=== PATIENT | male | born 1960 | race Caucasian/White ===

== ENCOUNTER 2017-04-13 20:12 | Inpatient (IN) | payer BC ==
[~2017-04-13] VITALS: Ht 172.7 cm; Wt 94.6 kg
[~2017-04-13 20:12] MED LIST: ALEN70TA30 PO; ASPI-664 PO; FINA5TAB4 PO; HYDR-3498 PO; LEVO175T38 PO; SIMV40TA3 PO; TAMS-14 PO; TERA10CA42 PO; [UNRECOGNIZED DRUG - CODE] PO
[2017-04-13] MEDS ORDERED: ONDANSETRON 4 MG INJ IV STA (21:09)
[2017-04-13] MEDS ORDERED: morphine 2 MG INJ IV STA (21:09)
[2017-04-13] MEDS ORDERED: SOD CHLORIDE 0.9% 1,000 ML IV STA (21:09)
[2017-04-13] MEDS ORDERED: ACETAMINOPHEN 325 MG TAB PO ONE (21:30)
--- NOTE | 2017-04-13 21:39 | ERD ---
ER Documentation Chief Complaint Date/Time DATE: 04/13/17 TIME: 21:35 Chief Complaint fever/rectal pain x 5 days HPI 56-year-old male presents here in emergency department for complaints of fever and rectal pain for 5 days. Patient has history of hemorrhoids in the rectum, it is causing him some discomfort. Patient denies any rectal bleeding. Complaining of pain, throbbing pain, 6/10 scale, as was upon defecation. Denies any other symptoms. Patient did not take any medications to help with symptoms ROS All systems reviewed and are negative except as per history of present illness. Medications Home Meds Active Scripts Tamsulosin Hcl* (Flomax*) 0.4 Mg Cap.er.24h, 0.4 MG PO BID, #10 CAP Prov:PALMIRA SAMUEL MD 01/10/15 Hydrocodone Bit-Acetaminophen* ([place]*) 5-325 Mg Tab, 1 TAB PO Q6 Y for PAIN, # 7 TAB Prov:PALMIRA SAMUEL MD 01/10/15 Reported Medications Alendronate Sodium* (Fosamax*) 70 Mg Tablet, 70 MG PO Q7D, TAB 01/10/15 Calcium Carbonate* (Calcium Antacid*) 500 Mg Tab.chew, 500 MG PO DAILY, TAB.CHEW 01/10/15 Finasteride* (Finasteride*) 5 Mg Tablet, 5 MG PO DAILY, TAB 01/10/15 Terazosin Hcl* (Terazosin Hcl*) 10 Mg Capsule, 10 MG PO HS, CAP 01/10/15 Levothyroxine Sodium* (Levoxyl*) 175 Mcg Tablet, 175 MCG PO AC BREAKFAST, TAB 01/10/15 Aspirin (Low Dose Aspirin) 81 Mg Tablet.dr, 81 MG PO DAILY 01/10/15 Simvastatin (Simvastatin) 40 Mg Tablet, 40 MG PO HS 02/09/13 Allergies Allergies: Coded Allergies: No Known Allergy (Unverified , 01/10/15) PMhx/Soc History of Surgery: Yes (THYROID SURGERY ) Anesthesia Reaction: No Hx Neurological Disorder: No Hx Respiratory Disorders: No Hx Cardiac Disorders: Yes (HTN) Hx Psychiatric Problems: No Hx Miscellaneous Medical Probl: Yes (HIGH CHOLESTEROL , THROID PROBLEM ) Hx Alcohol Use: Yes (OCCASIONALLY) Hx Substance Use: No Hx Tobacco Use: No Smoking Status: Never smoker FmHx Family History: No coronary disease, No diabetes, No other Physical Exam Vitals Vital Signs Date Time Temp Pulse Resp B/P Pulse Ox O2 Delivery O2 Flow Rate FiO2 04/13/17 20:17 101.3 122 20 136/75 94 Physical Exam GENERAL: The patient is well developed and appropriate for usual state of health, in no apparent distress. CHEST: Clear to auscultation bilaterally. There are no rales, wheezes or rhonchi. HEART: Regular rate and rhythm. No murmurs, clicks, rubs or gallops. No S3 or S4. ABDOMEN: Soft, nontender and nondistended. Good bowel sounds. No rebound or guarding. No gross peritonitis. No gross organomegaly or masses. No Martinez sign or McBurney point tenderness. BACK: No midline or flank tenderness. EXTREMITIES: Equal pulses bilaterally. There is no peripheral clubbing, cyanosis or edema. No focal swelling or erythema. Full range of motion. Grossly neurovascularly intact. NEURO: Alert and oriented. Cranial nerves 2-12 intact. Motor strength in all 4 extremities with 5/5 strength. Sensation grossly intact. Normal speech and gait. SKIN: There is no apparent rash or petechia. The skin is warm and dry. HEMATOLOGIC AND LYMPHATIC: There is no evidence of excessive bruising or lymphedema. No gross cervical, axillary, or inguinal lymphadenopathy. Result Diagram: 04/13/17212904/13/172129 Results 24 hrs Laboratory Tests Test 04/13/17 21:30 White Blood Count 13.110^3/ul Red Blood Count 4.3310^6/ul Hemoglobin 12.3g/dl Hematocrit 37.2% Mean Corpuscular Volume 85.9fl Mean Corpuscular Hemoglobin 28.4pg Mean Corpuscular Hemoglobin Concent 33.1g/dl Red Cell Distribution Width 12.1% Platelet Count 99291^3/UL Mean Platelet Volume 9.6fl Neutrophils % 73.3% Lymphocytes % 13.5% Monocytes % 11.6% Eosinophils % 0.6% Basophils % 0.4% Nucleated Red Blood Cells % 0.0/100WBC Neutrophils # 9.610^3/ul Lymphocytes # 1.810^3/ul Monocytes # 1.510^3/ul Eosinophils # 0.110^3/ul Basophils # 0.110^3/ul Nucleated Red Blood Cells # 0.010^3/ul Sodium Level 137mmol/L Potassium Level 4.3mmol/L Chloride Level 101mmol/L Carbon Dioxide Level 29mmol/L Anion Gap 11 Blood Urea Nitrogen 16mg/dl Creatinine 0.88mg/dl Glucose Level 113mg/dl Lactic Acid Level 1.3mmol/L Calcium Level 9.2mg/dl Total Bilirubin 0.4mg/dl Direct Bilirubin 0.00mg/dl Indirect Bilirubin 0.4mg/dl Aspartate Amino Transf (AST/SGOT) 26IU/L Alanine Aminotransferase (ALT/SGPT) 43IU/L Alkaline Phosphatase 73IU/L Total Protein 8.1g/dl Albumin 3.9g/dl Globulin 4.20g/dl Albumin/Globulin Ratio 0.92 Current Medications Medications (Trade) Dose Ordered Sig/Joey Route PRN Reason Start Time Stop Time Status Last Admin Dose Admin Sodium Chloride (NS) 1,000 ml @ 1,000 mls/hr Q1H STAT IV 04/13/17 21:09 04/13/17 22:08 DC 04/13/17 21:28 Morphine Sulfate (morphine) 2 mg ONCE STAT IV 04/13/17 21:09 04/13/17 21:11 DC 04/13/17 21:29 Ondansetron HCl (Zofran Inj) 4 mg ONCE STAT IV 04/13/17 21:09 04/13/17 21:11 DC 04/13/17 21:28 Acetaminophen (Tylenol Tab) 650 mg ONCE ONCE PO 04/13/17 21:30 04/13/17 21:31 DC 04/13/17 21:29 IV Flush 10 ml 10 ml STK-MED ONCE .ROUTE 04/13/17 22:13 04/13/17 22:14 DC 04/13/17 22:22 Sodium Chloride (NS) 100 ml @ ud STK-MED ONCE .ROUTE 04/13/17 22:13 04/13/17 22:14 DC 04/13/17 22:22 Iohexol (Omnipaque 300mg/ ml) 30 ml STK-MED ONCE .ROUTE 04/13/17 22:13 04/13/17 22:14 DC 04/13/17 22:23 Patient was given medication for pain here in emergency department, after treatment, patient verbalized feeling much better. Patient's pain is improved. Patient was given Zofran here in the emergency department. After treatment, patient was able to tolerate po fluids here in the emergency department without any vomiting. There is no signs and symptoms of dehydration. Patient was given medicines for fever control here in the emergency department. After treatment, patient temperature improved and lower. Patient appears well and is hemodynamically stable. Normal saline IV bolus was given here in emergency department for rehydration, patient tolerated IV fluids. PROCEDURE: CT scan of the abdomen and pelvis without IV contrast. CLINICAL INDICATION: Rectal pain and swelling. Rule out abscess. TECHNIQUE: Thin section axial, coronal and sagittal images were performed through the abdomen and pelvis without intravenous contrast. Images were performed on a [id number] III scanner. Radiation Dose: CTDI: 13.04 and DLP: 800.55 One or more of the following dose reduction techniques were used: - Automated exposure control. - Adjustment of the mA and/or kV according to patient size. Use of iterative reconstruction technique. COMPARISON: CT scan abdomen pelvis 01/10/2015. FINDINGS: Soft tissues: There is a midline umbilical hernia. There are bilateral inguinal hernias containing only fat. There is a soft tissue abscess dorsal to the rectal ampulla and near the level of the anus. This measures about 3.9 cm in long axis in the sagittal plane by 2.2 x 2 cm in the axial plane. Lungs and pleural spaces: There are peripheral ground-glass infiltrates in the bases of the lungs. There is a pleural-based soft nodule measuring 1.1 cm in size in the medial aspect of the right lower lobe. This is not identified on the prior CT abdomen dated January 10, 2015. This could be the result of a inflammatory or neoplastic process. A follow-up CT chest is recommended in 3 months to confirm stability. A PET CT scan or CT guided lung biopsy can be considered for further evaluation if there is a high index of suspicion for malignancy. Series 3; image 2. there is plate-like atelectasis in the lingula. No pleural effusion is identified. Heart: Heart is upper limits of normal for size. No pericardial effusion is identified. The liver, common bile duct and gallbladder: The liver measured 17.8 cm AP which is enlarged. No hepatic mass or intrahepatic biliary ductal dilatation is identified. The gallbladder and gallbladder wall are normal. The hepatic and portal veins are patent. Gastrointestinal: The stomach is incompletely distended and this is thought to account for gastric wall thickening. There is fecal material throughout the colon. There is no evidence of diverticulosis or diverticulitis. The vermiform appendix is normal. A fluid collection measuring 2.2 x 2 cm in size is identified dorsal to the anus suspicious for an abscess. The small bowel loops have a normal caliber. There is a umbilical hernia measuring up to 4.7 cm sagittal by 2.1 cm AP. The neck of the hernia measures up to 2 cm in transverse diameter. There is rectus diastasis. Pancreas: There is some fatty replacement of the pancreas but no pancreatic mass. The extrahepatic common bile duct is normal. Kidneys, bladder and adrenal glands : The adrenal glands are normal. The kidneys are unremarkable. There is no evidence of nephrolithiasis. The urinary bladder is normal. Spleen: Normal. Lymph nodes: No enlarged inguinal, pelvic sidewall, retroperitoneal, mesenteric or periportal lymph nodes are identified. Reproductive system and pelvis : Normal. Bony elements: There are degenerative osteophytes in the thoracic and lumbar spine. No acute bony fracture or bone metastasis is identified. There is disc space narrowing with ventral spondylosis at L3-4, L4-5 and mild dorsal disc space narrowing at L5-S1. There is no evidence of spondylolysis or spondylolisthesis. Vasculature: There are vascular calcifications in the mid and lower abdominal aorta, common iliac arteries, left internal iliac artery and distal femoral arteries. There are bilateral inguinal hernias containing only fat. IMPRESSION: 1. A 1.1 cm pleural based soft nodule is identified in the medial aspect of the right lower lobe. This could be the result of an Laboratory process such as TB or coccidiomycosis. A neoplastic etiology is not excluded. TB skin testing is recommended along with a follow-up CT scan in [address] scan or percutaneous lung biopsy can be considered for evaluation if there is a high index of suspicion for malignancy. 2. Peripheral ground-glass infiltrates peribronchial cuffing in the bases of the lungs suspicious for small airway disease and /or atelectasis. Plate-like atelectasis in the lingula. 3. 2.2 x 2 cm by 3.9 cm fluid collection which may be the result of an abscess dorsal to the distal rectal ampulla adjacent to the anus. 4. Hepatomegaly. 5. Midline umbilical hernia measuring up to 3.1 cm transverse by 4.7 cm sagittal by 2.1 cm AP containing only fat. 6. Bilateral inguinal hernias are identified which contain only fat. 7. Atherosclerotic vascular disease. 8. Osteoarthritis of the thoracic and lumbosacral spine. 9. Findings were phoned to KIRA Stevens at 10:46 p.m.. RPTAT:AAJJ Physician Jairon Date Time Electronically viewed and signed by Arturo Murphy Physician on 04/13/2017 22:50 JM/ CC: SON HURD NP Procedures/MDM Medical decision making: Patient has perirectal abscesses most likely causing the fever and the pain. Most likely needs general surgeon for possible surgical intervention for draining of the abscess. Patient will be admitted to the hospital, Dr. Gamino, my attending physician, will facilitate patient's admission to the hospital. Disposition Departure Diagnosis: Primary Impression: Rectal abscess Condition: Stable SON HURD NP Apr 13, 2017 21:39
[2017-04-13 21:46] LABS: ABNORMAL IP MESSAGE 1; BASOPHIL # 0.1 10^3/ul (0.0-0.1); BASOPHILS % 0.4 % (0.0-2.0); EOSINOPHILS # 0.1 10^3/ul (0.0-0.5); EOSINOPHILS % 0.6 % (0.0-7.0); HEMATOCRIT 37.2 % (42.0-52.0); HEMOGLOBIN 12.3 g/dl (14.0-18.0); LYMPHOCYTES # 1.8 10^3/ul (0.8-2.9); LYMPHOCYTES % 13.5 % (15.0-51.0); MEAN CORPUSCULAR HEMOGLOBIN 28.4 pg (29.0-33.0); MEAN CORPUSCULAR HGB CONC 33.1 g/dl (32.0-37.0); MEAN CORPUSCULAR VOLUME 85.9 fl (82.0-101.0); MEAN PLATELET VOLUME 9.6 fl (7.4-10.4); MONOCYTE # 1.5 10^3/ul (0.3-0.9); MONOCYTES % 11.6 % (0.0-11.0); NEUTROPHIL # 9.6 10^3/ul (1.6-7.5); NEUTROPHILS % 73.3 % (39.0-77.0); PLATELET COUNT 319 10^3/UL (140-415); POSITIVE DIFF @See below; RED BLOOD COUNT 4.33 10^6/ul (4.70-6.10); RED CELL DISTRIBUTION WIDTH 12.1 % (11.5-14.5); WHITE BLOOD COUNT 13.1 10^3/ul (4.8-10.8)
[2017-04-13 22:06] LABS: ALBUMIN 3.9 g/dl (3.3-4.9); ALBUMIN/GLOBULIN RATIO 0.92; BILIRUBIN,INDIRECT 0.4 mg/dl (0-1.1); BILIRUBIN,TOTAL 0.4 mg/dl (0.2-1.3); CALCIUM 9.2 mg/dl (8.4-10.2); CREATININE 0.88 mg/dl (0.61-1.24); POTASSIUM 4.3 mmol/L (3.5-5.1); TOTAL PROTEIN 8.1 g/dl (6.1-8.1)
[2017-04-13] MEDS ORDERED: IOHEXOL 300MG/ML 30 ML BTL ONE (22:13)
[2017-04-13] MEDS ORDERED: SOD CHLORIDE 0.9% 100 ML ONE (22:13)
--- NOTE | 2017-04-13 22:51 | RADRPT ---
PROCEDURE: CT scan of the abdomen and pelvis without IV contrast. CLINICAL INDICATION: Rectal pain and swelling. Rule out abscess. TECHNIQUE: Thin section axial, coronal and sagittal images were performed through the abdomen and pelvis without intravenous contrast. Images were performed on a [employer] scan ner. Radiation Dose: CTDI: 13.04 and DLP: 800.55 One or more of the following dose reduction techniques were used: - Automated exposure control. - Adjustment of the mA and/or kV according to patient size. Use of iterative reconstruction technique. COMPARISON: CT scan abdomen pelvis 01/10/2015. FINDINGS: Soft tissues: There is a midline umbilical hernia. There are bilateral inguinal hernias containing o nly fat. There is a soft tissue abscess dorsal to the rectal ampulla and near the level of the anus. This measures about 3.9 cm in long axis in the sagittal plane by 2.2 x 2 cm in the axial plane. Lungs and pleural spaces: There are peripheral ground-glass infiltrates in the bases of the lungs. T here is a pleural-based soft nodule measuring 1.1 cm in size in the medial aspect of the right lower lobe. This is not identified on the prior CT abdomen dated January 10, 2015. This could be the result of a inflammatory or neoplastic process. A follow-up CT chest is recommended in 3 months to confirm stability. A PET CT scan or CT guided lung biopsy can be considered for further evaluation if there is a high index of suspicion for malignancy. Series 3; image 2. there is plate-like atelectasis in t he lingula. No pleural effusion is identified. Heart: Heart is upper limits of normal for size. No pericardial effusion is identified. The liver, common bile duct and gallbladder: The liver measured 17.8 cm AP which is enlarged. No hep atic mass or intrahepatic biliary ductal dilatation is identified. The gallbladder and gallbladder w all are normal. The hepatic and portal veins are patent. Gastrointestinal: The stomach is incompletely distended and this is thought to account for gastric w all thickening. There is fecal material throughout the colon. There is no evidence of diverticulosis or diverticulitis. The vermiform appendix is normal. A fluid collection measuring 2.2 x 2 cm in siz e is identified dorsal to the anus suspicious for an abscess. The small bowel loops have a normal ca liber. There is a umbilical hernia measuring up to 4.7 cm sagittal by 2.1 cm AP. The neck of the her deo measures up to 2 cm in transverse diameter. There is rectus diastasis. Pancreas: There is some fatty replacement of the pancreas but no pancreatic mass. The extrahepatic c ommon bile duct is normal. Kidneys, bladder and adrenal glands : The adrenal glands are normal. The kidneys are unremarkable. T here is no evidence of nephrolithiasis. The urinary bladder is normal. Spleen: Normal. Lymph nodes: No enlarged inguinal, pelvic sidewall, retroperitoneal, mesenteric or periportal lymph nodes are identified. Reproductive system and pelvis : Normal. Bony elements: There are degenerative osteophytes in the thoracic and lumbar spine. No acute bony fr acture or bone metastasis is identified. There is disc space narrowing with ventral spondylosis at L 3-4, L4-5 and mild dorsal disc space narrowing at L5-S1. There is no evidence of spondylolysis or sp ondylolisthesis. Vasculature: There are vascular calcifications in the mid and lower abdominal aorta, common iliac ar teries, left internal iliac artery and distal femoral arteries. There are bilateral inguinal hernias containing only fat. IMPRESSION: 1. A 1.1 cm pleural based soft nodule is identified in the medial aspect of the right lower lobe. T his could be the result of an Laboratory process such as TB or coccidiomycosis. A neoplastic etiolog y is not excluded. TB skin testing is recommended along with a follow-up CT scan in [address] scan or percutaneous lung biopsy can be considered for evaluation if there is a high index of david picion for malignancy. 2. Peripheral ground-glass infiltrates peribronchial cuffing in the bases of the lungs suspicious fo r small airway disease and /or atelectasis. Plate-like atelectasis in the lingula. 3. 2.2 x 2 cm by 3.9 cm fluid collection which may be the result of an abscess dorsal to the distal rectal ampulla adjacent to the anus. 4. Hepatomegaly. 5. Midline umbilical hernia measuring up to 3.1 cm transverse by 4.7 cm sagittal by 2.1 cm AP conta ining only fat. 6. Bilateral inguinal hernias are identified which contain only fat. 7. Atherosclerotic vascular disease. 8. Osteoarthritis of the thoracic and lumbosacral spine. 9. Findings were phoned to IKRA Stevens at 10:46 p.m.. RPTAT:AAJJ Arturo Murphy, Physician Date Time Electronically viewed and signed by Arturo Murphy, Physician on 04/13/2017 22:50 YANIV/
[2017-04-14] VITALS (12 sets, daily range): BP systolic 101–123; BP diastolic 58–67; PULSE 86–94; RESP 14–18; TEMP 98.9; Ht 172.7 cm; Wt 94.6 kg
[2017-04-14 00:37] LABS: ADD UMIC NO; UR ASCORBIC ACID NEGATIVE (NEGATIVE); UR BILIRUBIN (Dip) NEGATIVE (NEGATIVE); UR BLOOD (Dip) NEGATIVE (NEGATIVE); UR CLARITY CLEAR (CLEAR); UR COLOR YELLOW (YELLOW); UR GLUCOSE (Dip) NEGATIVE (NEGATIVE); UR KETONES (Dip) TRACE mg/dL (NEGATIVE); UR LEUKOCYTE ESTERASE (Dip) NEGATIVE Leu/ul (NEGATIVE); UR NITRITE (Dip) NEGATIVE (NEGATIVE); UR SPECIFIC GRAVITY (Dip) 1.055 (1.003-1.030); UR TOTAL PROTEIN (Dip) NEGATIVE (NEGATIVE); UR UROBILINOGEN (Dip) NEGATIVE (NEGATIVE)
[2017-04-14] MEDS: DEXTROSE 5%-0.45% NACL 1,000 ML IV SCH (01:54)
[2017-04-14] MEDS: morphine 4 MG/ML VIAL IV PRN ×3 (01:55→20:45)
[2017-04-14] MEDS: PIPER-TAZO 3.375 GM IV (PMX) 100 ML IVPB SCH ×4 (02:00→17:30)
[2017-04-14] MEDS ORDERED: HYDROCODONE/APAP (5/325) TAB PO PRN (02:00)
[2017-04-14 06:22] LABS: ABNORMAL IP MESSAGE 1; BASOPHILS % 0.3 % (0.0-2.0); EOSINOPHILS # 0.1 10^3/ul (0.0-0.5); EOSINOPHILS % 0.6 % (0.0-7.0); HEMATOCRIT 33.7 % (42.0-52.0); HEMOGLOBIN 10.9 g/dl (14.0-18.0); LYMPHOCYTES # 1.8 10^3/ul (0.8-2.9); MEAN CORPUSCULAR HEMOGLOBIN 28.1 pg (29.0-33.0); MEAN CORPUSCULAR HGB CONC 32.3 g/dl (32.0-37.0); MEAN CORPUSCULAR VOLUME 86.9 fl (82.0-101.0); MEAN PLATELET VOLUME 9.5 fl (7.4-10.4); MONOCYTE # 1.8 10^3/ul (0.3-0.9); MONOCYTES % 12.6 % (0.0-11.0); NEUTROPHIL # 10.8 10^3/ul (1.6-7.5); PLATELET COUNT 278 10^3/UL (140-415); POSITIVE DIFF @See below; RED BLOOD COUNT 3.88 10^6/ul (4.70-6.10); RED CELL DISTRIBUTION WIDTH 12.3 % (11.5-14.5); WHITE BLOOD COUNT 14.6 10^3/ul (4.8-10.8)
[2017-04-14 06:54] LABS: ALBUMIN 3.7 g/dl (3.3-4.9); ALBUMIN/GLOBULIN RATIO 1.05; BILIRUBIN,INDIRECT 0.6 mg/dl (0-1.1); BILIRUBIN,TOTAL 0.6 mg/dl (0.2-1.3); CALCIUM 8.4 mg/dl (8.4-10.2); CREATININE 0.89 mg/dl (0.61-1.24); POTASSIUM 4.3 mmol/L (3.5-5.1); TOTAL PROTEIN 7.2 g/dl (6.1-8.1)
--- NOTE | 2017-04-14 13:53 | HP ---
DATE OF ADMISSION: 04/13/2017 CHIEF COMPLAINT: Rectal pain and fever for the last 5 days. HISTORY OF PRESENT ILLNESS: The patient is a 56-year-old gentleman with prior medical history of thyroid cancer, status post thyroidectomy in 2000, COPD, BPH, history of back surgery many years ago, history of hypertension, dyslipidemia. The patient had a colonoscopy a couple of years ago with notion of hemorrhoids. The patient developed rectal pain for the last 5 days and was not able to have a bowel movement due to pain. The patient also complains of fever and chills. The patient denies any rectal bleeding. Denies any hematochezia. On evaluation in the emergency room, patient underwent CT of the abdomen and pelvis, which revealed a fluid collection in the distal rectal ampulla adjacent to the anus. The patient was also noted to have leukocytosis and fever of 101.3. Patient had nausea; however, denies any emesis. Patient was given Zofran and morphine in the emergency room. Patient was started on Zosyn and admitted for further evaluation and management. Patient patient denies any shortness of breath. Denies any chest pain. PAST MEDICAL HISTORY: 1. Thyroid cancer, status post thyroidectomy 2000. 2. COPD. 3. BPH. 4. Hypertension. 5. Dyslipidemia. 6. Osteoporosis. PAST SURGICAL HISTORY: 1. Back surgery in 1984, details are not available. 2. Status post thyroidectomy in 2000. 3. Colonoscopy a couple of years ago. FAMILY HISTORY: Noncontributory. SOCIAL HISTORY: Patient lives at home with his family. The patient is a former smoker. However, stated that he quit smoking 17 years ago when he was diagnosed with thyroid cancer. The patient drinks alcohol occasionally. Denies any illicit drug use. ALLERGIES: NO KNOWN ALLERGIES. MEDICATIONS: Includes: 1. Flomax. 2. [place]. 3. Fosamax. 4. Calcium carbonate. 5. Finasteride. 6. Terazosin. 7. Levothyroxine. 8. Aspirin. 9. Simvastatin. REVIEW OF SYSTEMS: Twelve point review of system is negative unless what is mentioned in HPI. PHYSICAL EXAMINATION: GENERAL: A well-developed, well-nourished male, currently is awake, alert, in no acute distress. VITAL SIGNS: Temperature is 99.8, pulse is 91, blood pressure 101/58, respiratory rate 17, oxygen saturation 93 percent on room air. HEENT: Head is atraumatic, normocephalic. Pupils equal, round, reactive to light and accommodation. Oral mucosa is pink and moist. NECK: No cervical lymphadenopathy. No thyromegaly. CHEST: Lungs clear bilaterally. There is no rhonchi, wheezes or rales noted. CARDIOVASCULAR: Normal S1, S2. No murmurs, gallops, clicks, rubs noted. ABDOMEN: Protuberant, soft, nondistended, nontender. EXTREMITIES: No edema, clubbing, cyanosis. Pulses equal bilaterally 2+. SKIN: No rash. No petechiae noted. NEUROLOGICAL: Patient is awake, alert, and oriented x4. No focal deficits noted. Motor strength is 5/5 in all extremities. LABORATORY DATA: On admission, CBC white blood cells 13.1, hemoglobin 12.3, hematocrit 37.2, platelets 319. Chemistry: Sodium is 137, potassium 4.3, chloride 101, carbon dioxide 29, anion gap 11, BUN is 16, creatinine 0.88, glucose 113, AST is 26, ALT is 43, alkaline phosphatase 73. ASSESSMENT AND PLAN: 1. Rectal abscess. We will continue morphine for pain. Dr. Jimenez is asked to see patient in General Surgery consultation. Continue broad-spectrum antibiotics. 2. Systemic inflammatory response syndrome with fevers and leukocytosis secondary to rectal abscess. Continue intravenous fluids and antibiotics. Dr. Salmeron is asked to see patient in Infectious Disease consultation. 3. A 1 cm pleural-based soft tissue nodule in the right lower lung lobe. We are going to as DrAnibal to see patient in Pulmonology consultation. 4. Benign prostatic hypertrophy. 5. Hypertension. 6. Dyslipidemia. 7. We are going to continue sequential compression for deep venous thrombosis prophylaxis and Pepcid for peptic ulcer disease prophylaxis. Further recommendations based on clinical course. Plan of care discussed with Dr. Ponce. Dictated By: Rizwana Dawkins NP /ana/maame /Document#: [id number]
[2017-04-14] MEDS: ACETAMINOPHEN 325 MG TAB PO PRN (14:27)
[2017-04-14] MEDS ORDERED: VANCOMYCIN IV PER PHARMACY XX SCH (16:00)
[2017-04-14] MEDS ORDERED: VANCOMYCIN 2 GM in SOD CHLORIDE 0.9% 500 ML IVPB SCH (18:00)
--- NOTE | 2017-04-14 18:34 | CONS ---
Date/Time of Note Date/Time of Note DATE: 04/14/17 TIME: 18:28 Assessment/Plan Assessment/Plan Additional Assessment/Plan Perianal abscess Plan: Incision and drainage Consultation Date/Type/Reason Admit Date/Time Apr 13, 2017 at 23:28 Date of Consultation: Apr 14, 2017 Reason for Consultation Perirectal abscess Hx of Present Illness The patient is a 56-year-old gentleman who presents with a 5 day history of increasing perirectal pain. He was seen in the emergency room yesterday, where he was treated and released. He returns today worsening pain. CT is compatible with a perianal abscess. The patient reportedly has had fevers and chills. His comorbid conditions consist of COPD, BPH, hypertension and history of thyroidectomy for thyroid carcinoma. Constitutional: no complaints Eyes: no complaints ENT: no complaints Respiratory: no complaints Cardiovascular: no complaints Gastrointestinal: no complaints, pain (Perianal pain mostly on the right) Genitourinary: no complaints, other (History of BPH) Musculoskeletal: no complaints Skin: no complaints Neurologic: no complaints Endocrine: no complaints Lymphatic: no complaints Past Medical History Medical History: hypertension, other (COPD, BPH, hypertension, osteoporosis, dyslipidemia) Past Surgical History Thyroidectomy for thyroid carcinoma Back surgery 1985 Family History Significant Family History: no pertinent family hx Social History Alcohol Use: occasionally Smoking Status: Former smoker Drug Use: none Exam/Review of Systems Vital Signs Vitals Vital Signs Date Time Temp Pulse Resp B/P Pulse Ox O2 Delivery O2 Flow Rate FiO2 04/14/17 17:20 98.4 04/14/17 14:27 85 18 106/60 95 04/14/17 01:00 Room Air Intake and Output 04/13/17 04/13/17 04/14/17 15:00 23:00 07:00 Intake Total 575 ml Output Total 400 ml Balance 175 ml Exam Constitutional: alert, oriented Psych: nl mood/affect, no complaints Head: normocephalic Eyes: nl conjunctiva ENMT: nl external ears & nose Neck: supple Respiratory: clear to auscultation Cardiovascular: regular rate and rhythm Gastrointestinal: other (Perianal tenderness right anal verge, with underlying fluctuance), soft Genitourinary - Male: nl penis, nl scrotum Musculoskeletal: nl extremities to inspection Extremities: normal pulses Neurological: 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 intact Skin: nl turgor Lymph: nl lymph nodes Results Result Diagram: 04/14/17 0555 04/14/17 0555 Results 24 hrs Laboratory Tests Test 04/13/17 21:30 04/13/17 23:05 04/14/17 05:55 White Blood Count 13.1 H 14.6 H Red Blood Count 4.33 L 3.88 L Hemoglobin 12.3 L 10.9 L Hematocrit 37.2 L 33.7 L Mean Corpuscular Volume 85.9 86.9 Mean Corpuscular Hemoglobin 28.4 L 28.1 L Mean Corpuscular Hemoglobin Concent 33.1 32.3 Red Cell Distribution Width 12.1 12.3 Platelet Count 319 278 Mean Platelet Volume 9.6 9.5 Neutrophils % 73.3 74.0 Lymphocytes % 13.5 L 12.0 L Monocytes % 11.6 H 12.6 H Eosinophils % 0.6 0.6 Basophils % 0.4 0.3 Nucleated Red Blood Cells % 0.0 0.0 Neutrophils # 9.6 H 10.8 H Lymphocytes # 1.8 1.8 Monocytes # 1.5 H 1.8 H Eosinophils # 0.1 0.1 Basophils # 0.1 0.0 Nucleated Red Blood Cells # 0.0 0.0 Sodium Level 137 138 Potassium Level 4.3 4.3 Chloride Level 101 103 Carbon Dioxide Level 29 28 Anion Gap 11 11 Blood Urea Nitrogen 16 12 Creatinine 0.88 0.89 Glucose Level 113 112 Lactic Acid Level 1.3 Calcium Level 9.2 8.4 Total Bilirubin 0.4 0.6 Direct Bilirubin 0.00 0.00 Indirect Bilirubin 0.4 0.6 Aspartate Amino Transf (AST/SGOT) 26 24 Alanine Aminotransferase (ALT/SGPT) 43 39 Alkaline Phosphatase 73 61 Total Protein 8.1 7.2 Albumin 3.9 3.7 Globulin 4.20 H 3.50 H Albumin/Globulin Ratio 0.92 1.05 Urine Color YELLOW Urine Clarity CLEAR Urine pH 5.0 Urine Specific [place] 1.055 H Urine Ketones TRACE A Urine Nitrite NEGATIVE Urine Bilirubin NEGATIVE Urine Urobilinogen NEGATIVE Urine Leukocyte Esterase NEGATIVE Urine Hemoglobin NEGATIVE Urine Glucose NEGATIVE Urine Total Protein NEGATIVE Medications Medications Current Medications Piperacillin Sod/ Tazobactam Sod (Zosyn 3.375gm/ 100 ml (Pmx)) 100 ml @ 200 mls /hr Q6 IVPB Last administered on 04/14/17 12:03; Admin Dose 200 MLS/HR; Start 04/14/17 at 02:00 Acetaminophen (Tylenol Tab) 650 mg Q6H PRN PO PAIN AND OR ELEVATED TEMP Last administered on 04/14/17 14:27; Admin Dose 650 MG; Start 04/14/17 at 02:00 Acetaminophen/ Hydrocodone Bitart ([place] (5/325)) 1 tab Q4H PRN PO PAIN; Start 04/14/17 at 02:00 Morphine Sulfate 4 mg 4 mg Q4H PRN IV PAIN Last administered on 04/14/17 06:03 ; Admin Dose 4 MG; Start 04/14/17 at 02:00 Dextrose/Sodium Chloride (D5-1/2ns) 1,000 ml @ 75 mls/hr [id number] IV Last administered on 04/14/17 01:54; Admin Dose 75 MLS/HR; Start 04/14/17 at 02:00 Aspirin (Halfprin) 81 mg DAILY PO ; Start 04/15/17 at 09:00 Finasteride (Proscar) 5 mg DAILY PO ; Start 04/15/17 at 09:00 Tamsulosin HCl (Flomax) 0.4 mg BID PO ; Start 04/14/17 at 21:00 Atorvastatin Calcium 20 mg 20 mg HS PO ; Start 04/14/17 at 21:00 Vancomycin HCl 2 gm/Sodium Chloride 500 ml @ 125 mls/hr ONCE IVPB Last administered on 04/14/17 17:53; Admin Dose 125 MLS/HR; Start 04/14/17 at 18:00 ; Stop 04/15/17 at 01:00 Vancomycin HCl/ Sodium Chloride (Vancocin/NS) 250 ml @ 83.333 mls/ hr Q12H IVPB ; Start 04/15/17 at 08:00 MAXX WINSLOW MD Apr 14, 2017 18:34
[2017-04-14] MEDS ORDERED: FENTAnyl 50 MCG/ML VIAL ONE (19:50)
[2017-04-14] MEDS ORDERED: MIDAZOLAM 1 MG/ML 2 ML INJ ONE (19:50)
[2017-04-14] MEDS ORDERED: BUPIVACAINE 0.5% (SDV) 30 ML INJ ONE (20:11)
[2017-04-14] MEDS ORDERED: LIDOCAINE 2%/EPI 30 ML INJ ONE (20:14)
[2017-04-14] MEDS ORDERED: LIDOCAINE 2% (SDV) 5 ML INJ ONE (20:20)
[2017-04-14] MEDS ORDERED: ETOMIDATE 20 MG INJ ONE (20:20)
[2017-04-14] MEDS ORDERED: ONDANSETRON 4 MG INJ ONE (20:21)
[2017-04-14] MEDS ORDERED: OXYCODONE/ACETAMINOPHEN (5/325) TAB PO PRN ×2 (20:30)
[2017-04-14] MEDS ORDERED: morphine 2 MG INJ IV PRN (20:30)
--- NOTE | 2017-04-14 20:35 | OPR ---
Date/Time of Note Date/Time of Note DATE: 04/14/17 TIME: 20:30 Operative Report Procedure Date: Apr 14, 2017 Preoperative Diagnosis Perianal abscess Postoperative Diagnosis Perianal phlegmon Operation Performed Examination under anesthesia Incision and drainage Surgeon Maxx Winslow MD Anesthesia Type: general Anesthesiologist: PRISCILLA ADLER MD Estimated Blood Loss: 0 - 10 ml's Transfusion Required: no Specimens Culture and sensitivity Complications: no Pt Condition Post Procedure: stable Disposition: PACU Indications Perianal pain Operative\Procedure Findings Perianal phlegmon 7:00 lithotomy Procedure Description After satisfactory general anesthesia was achieved, the patient was placed in candycane stirrups and the perineum was prepped and draped. Examination under anesthesia revealed perianal fluctuance and edema at 7:00 in lithotomy position. No other abnormalities except for external hemorrhoids. A 2-1/2 cm radial incision was made at 7:00. There was no za abscess, but rather a 3 cm x 3 cm phlegmon. This was cultured aerobically and anaerobically, then packed with 1 inch iodoform gauze. Wound was infiltrated with 20 cc of 0.5% plain Marcaine and 10 cc of 2% lidocaine with epinephrine. Sponge and needle counts reported as correct 2 MAXX WINSLOW MD Apr 14, 2017 20:35
[2017-04-14] MEDS ORDERED: NON-FORMULARY/PATIENT OWN MED (Simvastatin 40 MG) PO SCH (21:00)
[2017-04-14] MEDS: ATORVASTATIN 20 MG TAB PO SCH (21:28)
[2017-04-14] MEDS: TAMSULOSIN (SR) 0.4 MG CAP PO SCH (21:28)
--- NOTE | 2017-04-14 22:12 | CONS ---
Date/Time of Note Date/Time of Note DATE: 04/14/17 TIME: 22:11 Assessment/Plan Assessment/Plan Chief Complaint/Hosp Course LEUKOCYTOSIS REACTIVE MONITOR CLOSELY Lung nodule- chronic per pulmonary 1.1 cm pleural based soft nodule is identified in the medial aspect of the right lower lobe. RESCAN IN 3 MO Thyroid cancer, status post thyroidectomy 2000. CHECK THYROGLOBULIN Status post perianal abscess drainage Acute kidney injury NSTEMI, status post arrhythmia BPH Problems: Consultation Date/Type/Reason Admit Date/Time Apr 13, 2017 at 23:28 Date of Consultation: Apr 14, 2017 Type of Consultation: HEMEONC Reason for Consultation LEUKOCYTOSIS THYROID CANCER Referring Provider: GUERO HEDRICK MD Hx of Present Illness The patient is a 56-year-old gentleman with prior medical history of thyroid cancer, status post thyroidectomy in 2000, COPD, BPH, history of back surgery many years ago, history of hypertension, dyslipidemia. The patient had a colonoscopy a couple of years ago with notion of hemorrhoids. The patient developed rectal pain for the last 5 days and was not able to have a bowel movement due to pain. The patient also complains of fever and chills. The patient denies any rectal bleeding. Denies any hematochezia. On evaluation in the emergency room, patient underwent CT of the abdomen and pelvis, which revealed a fluid collection in the distal rectal ampulla adjacent to the anus. The patient was also noted to have leukocytosis and fever of 101.3. Patient had nausea; however, denies any emesis. Patient was given Zofran and morphine in the emergency room. Patient was started on Zosyn and admitted for further evaluation and management. Patient patient denies any shortness of breath. Denies any chest pain. I WAS ASKED TO PROVIDE HEMEONC CONSULT PAST MEDICAL HISTORY: 1. Thyroid cancer, status post thyroidectomy 2000. 2. COPD. 3. BPH. 4. Hypertension. 5. Dyslipidemia. 6. Osteoporosis. PAST SURGICAL HISTORY: 1. Back surgery in 1984, details are not available. 2. Status post thyroidectomy in 2000. 3. Colonoscopy a couple of years ago. FAMILY HISTORY: Noncontributory. SOCIAL HISTORY: Patient lives at home with his family. The patient is a former smoker. However, stated that he quit smoking 17 years ago when he was diagnosed with thyroid cancer. The patient drinks alcohol occasionally. Denies any illicit drug use. ALLERGIES: NO KNOWN ALLERGIES. MEDICATIONS: Includes: 1. Flomax. 2. [place]. 3. Fosamax. 4. Calcium carbonate. 5. Finasteride. 6. Terazosin. 7. Levothyroxine. 8. Aspirin. 9. Simvastatin. REVIEW OF SYSTEMS: Twelve point review of system is negative unless what is mentioned in HPI. Constitutional: no complaints Eyes: no complaints ENT: no complaints Respiratory: no complaints Cardiovascular: no complaints Gastrointestinal: no complaints, pain (Perianal pain mostly on the right) Genitourinary: no complaints, other (History of BPH) Musculoskeletal: no complaints Skin: no complaints Neurologic: no complaints Endocrine: no complaints Lymphatic: no complaints Psychological: nl mood/affect, no complaints Past Medical History Medical History: hypertension, other (COPD, BPH, hypertension, osteoporosis, dyslipidemia) Social History Alcohol Use: occasionally Smoking Status: Former smoker Drug Use: none Exam/Review of Systems Vital Signs Vitals Vital Signs Date Time Temp Pulse Resp B/P Pulse Ox O2 Delivery O2 Flow Rate FiO2 04/14/17 21:02 90 15 118/64 96 Nasal Cannula 04/14/17 20:42 99.7 Intake and Output 04/13/17 04/13/17 04/14/17 15:00 23:00 07:00 Intake Total 575 ml Output Total 400 ml Balance 175 ml Exam HEENT exam; supple neck, no JVD. No lymphadenopathy. Midline trachea. No thyromegaly. Pharynx is clear. Patient has fair dentition. Pupils are midsize and reactive to light. Chest examination; clear to auscultation. S1-S2 audible, no murmurs. Regular rhythm. Abdomen exam; soft, protuberant. Nontender. Bowel sounds audible. No organomegaly. Extremity exam; no peripheral edema. Pulses 2+ bilaterally. No clubbing. DOUGH BRAKER exam; no focal motor deficit. Results Result Diagram: 04/14/1755 04/14/17 0555 Results 24 hrs Laboratory Tests Test 04/13/17 23:05 04/14/17 05:55 Urine Color YELLOW Urine Clarity CLEAR Urine pH 5.0 Urine Specific [place] 1.055 H Urine Ketones TRACE A Urine Nitrite NEGATIVE Urine Bilirubin NEGATIVE Urine Urobilinogen NEGATIVE Urine Leukocyte Esterase NEGATIVE Urine Hemoglobin NEGATIVE Urine Glucose NEGATIVE Urine Total Protein NEGATIVE White Blood Count 14.6 H Red Blood Count 3.88 L Hemoglobin 10.9 L Hematocrit 33.7 L Mean Corpuscular Volume 86.9 Mean Corpuscular Hemoglobin 28.1 L Mean Corpuscular Hemoglobin Concent 32.3 Red Cell Distribution Width 12.3 Platelet Count 278 Mean Platelet Volume 9.5 Neutrophils % 74.0 Lymphocytes % 12.0 L Monocytes % 12.6 H Eosinophils % 0.6 Basophils % 0.3 Nucleated Red Blood Cells % 0.0 Neutrophils # 10.8 H Lymphocytes # 1.8 Monocytes # 1.8 H Eosinophils # 0.1 Basophils # 0.0 Nucleated Red Blood Cells # 0.0 Sodium Level 138 Potassium Level 4.3 Chloride Level 103 Carbon Dioxide Level 28 Anion Gap 11 Blood Urea Nitrogen 12 Creatinine 0.89 Glucose Level 112 Calcium Level 8.4 Total Bilirubin 0.6 Direct Bilirubin 0.00 Indirect Bilirubin 0.6 Aspartate Amino Transf (AST/SGOT) 24 Alanine Aminotransferase (ALT/SGPT) 39 Alkaline Phosphatase 61 Total Protein 7.2 Albumin 3.7 Globulin 3.50 H Albumin/Globulin Ratio 1.05 Medications Medications Current Medications Piperacillin Sod/ Tazobactam Sod (Zosyn 3.375gm/ 100 ml (Pmx)) 100 ml @ 200 mls /hr Q6 IVPB Last administered on 04/14/17 17:30; Admin Dose 200 MLS/HR; Start 04/14/17 at 02:00 Acetaminophen (Tylenol Tab) 650 mg Q6H PRN PO PAIN AND OR ELEVATED TEMP Last administered on 04/14/17 14:27; Admin Dose 650 MG; Start 04/14/17 at 02:00 Acetaminophen/ Hydrocodone Bitart ([place] (5/325)) 1 tab Q4H PRN PO PAIN; Start 04/14/17 at 02:00 Morphine Sulfate 4 mg 4 mg Q4H PRN IV PAIN Last administered on 04/14/17 20:45 ; Admin Dose 4 MG; Start 04/14/17 at 02:00 Dextrose/Sodium Chloride (D5-1/2ns) 1,000 ml @ 75 mls/hr [id number] IV Last administered on 04/14/17 01:54; Admin Dose 75 MLS/HR; Start 04/14/17 at 02:00 Aspirin (Halfprin) 81 mg DAILY PO ; Start 04/15/17 at 09:00 Finasteride (Proscar) 5 mg DAILY PO ; Start 04/15/17 at 09:00 Tamsulosin HCl (Flomax) 0.4 mg BID PO Last administered on 04/14/17 21:28; Admin Dose 0.4 MG; Start 04/14/17 at 21:00 Atorvastatin Calcium 20 mg 20 mg HS PO Last administered on 04/14/17 21:28; Admin Dose 20 MG; Start 04/14/17 at 21:00 Vancomycin HCl/ Sodium Chloride (Vancocin/NS) 250 ml @ 83.333 mls/ hr Q12H IVPB ; Start 04/15/17 at 08:00 Oxycodone/ Acetaminophen (Percocet (5/ 325)) 1 tab Q4H PRN PO MILD PAIN (1-3); Start 04/14/17 at 20:30 Oxycodone/ Acetaminophen (Percocet (5/ 325)) 2 tab Q4H PRN PO MODERATE PAIN (4- 6); Start 04/14/17 at 20:30 Morphine Sulfate (morphine) 2 mg ONCE PRN IV SEVERE PAIN LEVEL 7-10; Start at 20:30; Stop 04/14/17 at 23:59 Ondansetron HCl (Zofran Inj) 4 mg Q6H PRN IV NAUSEA; Start 04/14/17 at 20:30 Procedures Procedures [place] [id number] Radiology Main Line: [phone] DIAGNOSTIC IMAGING REPORT Patient: BARRETT SPENCE : 1960 Age: 56 Sex: M MR #: [id number] DOS: 04/13/172108 Ordering MD: SON HURD NP Location: [facility] Room/Bed: PROCEDURE: CT scan of the abdomen and pelvis without IV contrast. CLINICAL INDICATION: Rectal pain and swelling. Rule out abscess. TECHNIQUE: Thin section axial, coronal and sagittal images were performed through the abdomen and pelvis without intravenous contrast. Images were performed on a [employer] scanner. Radiation Dose: CTDI: 13.04 and DLP: 800.55 One or more of the following dose reduction techniques were used: - Automated exposure control. - Adjustment of the mA and/or kV according to patient size. Use of iterative reconstruction technique. COMPARISON: CT scan abdomen pelvis 01/10/2015. FINDINGS: Soft tissues: There is a midline umbilical hernia. There are bilateral inguinal hernias containing only fat. There is a soft tissue abscess dorsal to the rectal ampulla and near the level of the anus. This measures about 3.9 cm in long axis in the sagittal plane by 2.2 x 2 cm in the axial plane. Lungs and pleural spaces: There are peripheral ground-glass infiltrates in the bases of the lungs. There is a pleural-based soft nodule measuring 1.1 cm in size in the medial aspect of the right lower lobe. This is not identified on the prior CT abdomen dated January 10, 2015. This could be the result of a inflammatory or neoplastic process. A follow-up CT chest is recommended in 3 months to confirm stability. A PET CT scan or CT guided lung biopsy can be considered for further evaluation if there is a high index of suspicion for malignancy. Series 3; image 2. there is plate-like atelectasis in the lingula. No pleural effusion is identified. Heart: Heart is upper limits of normal for size. No pericardial effusion is identified. The liver, common bile duct and gallbladder: The liver measured 17.8 cm AP which is enlarged. No hepatic mass or intrahepatic biliary ductal dilatation is identified. The gallbladder and gallbladder wall are normal. The hepatic and portal veins are patent. Gastrointestinal: The stomach is incompletely distended and this is thought to account for gastric wall thickening. There is fecal material throughout the colon. There is no evidence of diverticulosis or diverticulitis. The vermiform appendix is normal. A fluid collection measuring 2.2 x 2 cm in size is identified dorsal to the anus suspicious for an abscess. The small bowel loops have a normal caliber. There is a umbilical hernia measuring up to 4.7 cm sagittal by 2.1 cm AP. The neck of the hernia measures up to 2 cm in transverse diameter. There is rectus diastasis. Pancreas: There is some fatty replacement of the pancreas but no pancreatic mass. The extrahepatic common bile duct is normal. Kidneys, bladder and adrenal glands : The adrenal glands are normal. The kidneys are unremarkable. There is no evidence of nephrolithiasis. The urinary bladder is normal. Spleen: Normal. Lymph nodes: No enlarged inguinal, pelvic sidewall, retroperitoneal, mesenteric or periportal lymph nodes are identified. Reproductive system and pelvis : Normal. Bony elements: There are degenerative osteophytes in the thoracic and lumbar spine. No acute bony fracture or bone metastasis is identified. There is disc space narrowing with ventral spondylosis at L3-4, L4-5 and mild dorsal disc space narrowing at L5-S1. There is no evidence of spondylolysis or spondylolisthesis. Vasculature: There are vascular calcifications in the mid and lower abdominal aorta, common iliac arteries, left internal iliac artery and distal femoral arteries. There are bilateral inguinal hernias containing only fat. IMPRESSION: 1. A 1.1 cm pleural based soft nodule is identified in the medial aspect of the right lower lobe. This could be the result of an Laboratory process such as TB or coccidiomycosis. A neoplastic etiology is not excluded. TB skin testing is recommended along with a follow-up CT scan in [address] scan or percutaneous lung biopsy can be considered for evaluation if there is a high index of suspicion for malignancy. 2. Peripheral ground-glass infiltrates peribronchial cuffing in the bases of the lungs suspicious for small airway disease and /or atelectasis. Plate-like atelectasis in the lingula. 3. 2.2 x 2 cm by 3.9 cm fluid collection which may be the result of an abscess dorsal to the distal rectal ampulla adjacent to the anus. 4. Hepatomegaly. 5. Midline umbilical hernia measuring up to 3.1 cm transverse by 4.7 cm sagittal by 2.1 cm AP containing only fat. 6. Bilateral inguinal hernias are identified which contain only fat. 7. Atherosclerotic vascular disease. 8. Osteoarthritis of the thoracic and lumbosacral spine. 9. Findings were phoned to KIRA Stevens at 10:46 p.m.. RPTAT:AAJJ Physician Jairon Date Time Electronically viewed and signed by Physician Jairon on 04/13/2017 22:50 JM/ CC: SON HURD NP, VERA M MD Apr 14, 2017 22:12
[2017-04-15] VITALS (44 sets, daily range): BP systolic 81–144; BP diastolic 58–86; PULSE 80–130; RESP 0–59
[2017-04-15] MEDS: PIPER-TAZO 3.375 GM IV (PMX) 100 ML IVPB SCH ×4 (00:04→18:18)
[2017-04-15] MEDS: DEXTROSE 5%-0.45% NACL 1,000 ML IV SCH ×2 (00:04→03:55)
--- NOTE | 2017-04-15 00:38 | CONS ---
DATE OF ADMISSION: 04/13/2017 DATE OF CONSULTATION: 04/14/2017 REASON FOR CONSULTATION: Antibiotic management. HISTORY OF PRESENT ILLNESS: Jesus Cline is a 56-year-old [place] Croatian male who comes in with rectal pain and fever for the last 5 days and is being seen for antibiotic management. PAST PROBLEMS: Include: 1. Thyroid cancer, status post thyroidectomy in 2000. 2. COPD. 3. BPH. 4. Hypertension. 5. Dyslipidemia. 6. Osteoporosis. 7. Back surgery in 1984, details not available. 8. Status post thyroidectomy in 2000. 9. Colonoscopy a number of years ago. 10. Former smoker. Quit smoking 17 years ago when diagnosed with thyroid cancer. Patient developed rectal pain over the last 5 days prior to admission, was not able to have a bowel movement. He denies rectal bleeding. In the emergency room he has had a CT of the abdomen and pelvis, which revealed a fluid collection in the distal rectal ampulla adjacent to the anus. Patient had a temperature of 101.3. He had nausea, without vomiting, was given Zofran, morphine, started on Zosyn and was admitted. On admission, his white count was 13.1, H and H of 12.3, 37.2, platelet count of 319,000. BUN and creatinine 16/0.88, glucose 113. AST 26, ALT 43, alkaline phosphatase 73. Patient was felt to have a rectal abscess, and Dr. Jimenez was asked to see him. He had systemic inflammatory response syndrome, and Infectious Disease was also asked to see the patient. PAST MEDICAL HISTORY: Operations as outlined. FAMILY HISTORY: Noncontributory. SOCIAL HISTORY: He does not smoke, drink, or abuse drugs. ALLERGIES: NONE TO PENICILLIN, SULFA, OR FOODS. MEDICATION: Per chart. REVIEW OF SYSTEMS: As per HPI. PHYSICAL EXAMINATION: GENERAL: Patient is a well-developed, well-nourished male, who is alert, responsive, in no acute distress. VITAL SIGNS: Stable. His T-max was 101.3. SKIN: Without generalized rash. HEENT: Within normal limits. NECK: Supple. Lymph nodes nonpalpable. CHEST: Decreased breath sounds at the bases. HEART: Without murmur or gallop. ABDOMEN: Soft, nontender. Nondistended, but protuberant. There is no organo-splenomegaly or masses. EXTREMITIES: Without cyanosis, clubbing, or edema. RECTAL: Deferred. GENITAL: Deferred. NEUROLOGICAL: No focal neurological abnormalities. IMPRESSION AND PLAN: Patient is on Zosyn. He will require surgical intervention. We will await Dr. Jimenez. In the meantime, he is on good antibiotic coverage. Blood cultures were drawn, actually x4. I will dictate my findings to Dr. Ponce. Dictated By: Zach Salmeron MD JD/ana/burt /Document#: [id number]
[2017-04-15] MEDS: ACETAMINOPHEN 325 MG TAB PO PRN (00:53)
[2017-04-15] MEDS ORDERED: SOD CHLORIDE 0.9% 1,000 ML IV ONE (02:30)
[2017-04-15] MEDS ORDERED: DILTIAZEM-D5W 125MG/125ML DRIP 125 ML IV SCH (03:00)
[2017-04-15 03:25] LABS: ABNORMAL IP MESSAGE 1; BASOPHILS % 0.3 % (0.0-2.0); EOSINOPHILS % 0.2 % (0.0-7.0); HEMATOCRIT 30.8 % (42.0-52.0); HEMOGLOBIN 10.3 g/dl (14.0-18.0); LYMPHOCYTES # 0.8 10^3/ul (0.8-2.9); LYMPHOCYTES % 6.4 % (15.0-51.0); MEAN CORPUSCULAR HEMOGLOBIN 28.6 pg (29.0-33.0); MEAN CORPUSCULAR HGB CONC 33.4 g/dl (32.0-37.0); MEAN CORPUSCULAR VOLUME 85.6 fl (82.0-101.0); MEAN PLATELET VOLUME 9.1 fl (7.4-10.4); MONOCYTE # 1.6 10^3/ul (0.3-0.9); MONOCYTES % 12.1 % (0.0-11.0); NEUTROPHIL # 10.3 10^3/ul (1.6-7.5); NEUTROPHILS % 80.5 % (39.0-77.0); PLATELET COUNT 272 10^3/UL (140-415); POSITIVE DIFF @See below; RED CELL DISTRIBUTION WIDTH 12.1 % (11.5-14.5); WHITE BLOOD COUNT 12.9 10^3/ul (4.8-10.8)
[2017-04-15 03:51] LABS: CALCIUM 8.2 mg/dl (8.4-10.2); CREATININE 1.74 mg/dl (0.61-1.24); POTASSIUM 3.8 mmol/L (3.5-5.1)
[2017-04-15] MEDS ORDERED: VANCOMYCIN 1.25 GM in SOD CHLORIDE 0.9% 250 ML IVPB SCH ×2 (08:00→18:00)
[2017-04-15] MEDS: FINASTERIDE 5 MG TAB PO SCH (08:03)
[2017-04-15] MEDS: TAMSULOSIN (SR) 0.4 MG CAP PO SCH ×2 (08:03→21:40)
[2017-04-15] MEDS: LEVOTHYROXINE 175 MCG TAB PO SCH (08:03)
[2017-04-15] MEDS: ASPIRIN (EC) 81 MG TAB PO SCH (08:03)
--- NOTE | 2017-04-15 10:39 | PN ---
Date/Time of Note Date/Time of Note DATE: 04/15/17 TIME: 10:38 Assessment/Plan Lines/Catheters IV Catheter Type (from Nrsg): Saline Lock Valladares in Place (from Nrsg): No Assessment/Plan Chief Complaint/Hosp Course The patient is a 56-year-old gentleman who presents with a 5 day history of increasing perirectal pain. He was seen in the emergency room yesterday, where he was treated and released. He returns today worsening pain. CT is compatible with a perianal abscess. The patient reportedly has had fevers and chills. His comorbid conditions consist of COPD, BPH, hypertension and history of thyroidectomy for thyroid carcinoma. Problems: Assessment/Plan Excellent postoperative recovery Rectal packing removed Sitz bath 3 times daily Subjective 24 Hr Interval Summary Postoperative day #1 Patient is markedly symptomatically improved Patient was transferred to the ICU last night because of tachycardia Exam/Review of Systems Vital Signs Vitals Vital Signs Date Time Temp Pulse Resp B/P Pulse Ox O2 Delivery O2 Flow Rate FiO2 04/15/17 10:15 89 59 112/75 97 Nasal Cannula 2.0 04/15/17 05:45 98.9 Intake and Output 04/14/17 04/14/17 04/15/17 15:00 23:00 07:00 Intake Total 200 ml 2255 ml 1348 ml Output Total 5 ml 150 ml Balance 200 ml 2250 ml 1198 ml Results Result Diagram: 04/15/17 0308 04/15/17 0303 MAXX WINSLOW MD Apr 15, 2017 10:39
--- NOTE | 2017-04-15 11:47 | CONS ---
Date/Time of Note Date/Time of Note DATE: 04/15/17 TIME: 11:40 Assessment/Plan Assessment/Plan Additional Assessment/Plan CT abdomen was reviewed which included lower lung images which are showing chronic appearing inflammatory changes in lower lobes bilaterally. Assessment and recommendations; 1. Patient admitted for rectal abscess status post I and D with marked overall interval improvement. 2. Questionable right lower lobe lung nodule. Chronic appearing inflammatory changes present in lower lobes bilaterally. 3. Remote history of smoking. 4. Other stable comorbidities including remote history of thyroid cancer, hypertension, BPH. Continue current treatment. Patient will need to have a dedicated CT of the chest on outpatient basis once he has recovered from his most recent illness which is rectal abscess. Consultation Date/Type/Reason Admit Date/Time Apr 13, 2017 at 23:28 Date of Consultation: Apr 15, 2017 Type of Consultation: Pulmonary/critical care Reason for Consultation Pulmonary consultation requested for evaluation of abnormal CT abdomen showing right lower lobe lung nodule. History of presenting illness; patient is a pleasant 56-year-old male who came into the emergency room yesterday with complaints of rectal pain. Patient was diagnosed with rectal abscess and underwent incision and drainage by general surgeon. The patient was transferred to the medical floor however he developed atrial fibrillation with rapid ventricular response and was then transferred to ICU and started on Cardizem drip with conversion to sinus rhythm. Admission patient had CT of the abdomen and pelvis done which also included lower lung images which are showing a 1.5 cm right lower lobe nodule. Patient denies any shortness of breath, chest pain, wheezing, sputum production. Rectal pain is markedly improved. Past medical history; 1. Patient with history of thyroid cancer in 2000 status post thyroidectomy and radiation treatment. 2. Possibly underlying COPD. 3. BPH. 4. Hypertension. 5. Hyperlipidemia. Medications; reviewed. Allergies; none. Social history; she quit smoking in 2000. Was smoking about pack a day at that time. Family history; patient is . No history of any malignancy in the family. 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 Review systems; denies any headache, visual changes, dysphagia. Denies any chest pain, sputum production, hemoptysis. Denies any fever or chills. Denies any upper abdominal pain. Rectal pain is markedly improved after surgery. Denies any urinary symptoms. Denies any orthopnea. Weight loss. Any skin changes. General exam; middle-aged male, awake, currently in no distress. Constitutional: no complaints Eyes: no complaints ENT: no complaints Respiratory: no complaints Cardiovascular: no complaints Gastrointestinal: no complaints, pain (Perianal pain mostly on the right) Genitourinary: no complaints, other (History of BPH) Musculoskeletal: no complaints Skin: no complaints Neurologic: no complaints Endocrine: no complaints Lymphatic: no complaints Psychological: nl mood/affect, no complaints Past Medical History Medical History: hypertension, other (COPD, BPH, hypertension, osteoporosis, dyslipidemia) Social History Alcohol Use: occasionally Smoking Status: Former smoker Drug Use: none Exam/Review of Systems Vital Signs Vitals Vital Signs Date Time Temp Pulse Resp B/P Pulse Ox O2 Delivery O2 Flow Rate FiO2 04/15/17 10:15 89 59 112/75 97 Nasal Cannula 2.0 04/15/17 05:45 98.9 Intake and Output 04/14/17 04/14/17 04/15/17 15:00 23:00 07:00 Intake Total 200 ml 2255 ml 1348 ml Output Total 5 ml 150 ml Balance 200 ml 2250 ml 1198 ml Exam HEENT exam; supple neck, no JVD. No lymphadenopathy. Midline trachea. No thyromegaly. Pharynx is clear. Patient has fair dentition. Pupils are midsize and reactive to light. Chest examination; clear to auscultation. S1-S2 audible, no murmurs. Regular rhythm. Abdomen exam; soft, protuberant. Nontender. Bowel sounds audible. No organomegaly. Extremity exam; no peripheral edema. Pulses 2+ bilaterally. No clubbing. LEGISLATIVE DIRECTOR exam; no focal motor deficit. Results Result Diagram: 04/15/17 0308 04/15/17 0303 Results 24 hrs Laboratory Tests Test 04/15/17 03:03 04/15/17 03:07 04/15/17 03:08 Sodium Level 138 Potassium Level 3.8 Chloride Level 107 Carbon Dioxide Level 25 Anion Gap 10 Blood Urea Nitrogen 14 Creatinine 1.74 H Glucose Level 141 Lactic Acid Level 1.3 Calcium Level 8.2 L Thyroid Stimulating Hormone (TSH) < 0.015 L White Blood Count 12.9 H Red Blood Count 3.60 L Hemoglobin 10.3 L Hematocrit 30.8 L Mean Corpuscular Volume 85.6 Mean Corpuscular Hemoglobin 28.6 L Mean Corpuscular Hemoglobin Concent 33.4 Red Cell Distribution Width 12.1 Platelet Count 272 Mean Platelet Volume 9.1 Neutrophils % 80.5 H Lymphocytes % 6.4 L Monocytes % 12.1 H Eosinophils % 0.2 Basophils % 0.3 Nucleated Red Blood Cells % 0.0 Neutrophils # 10.3 H Lymphocytes # 0.8 Monocytes # 1.6 H Eosinophils # 0.0 Basophils # 0.0 Nucleated Red Blood Cells # 0.0 Medications Medications Current Medications Piperacillin Sod/ Tazobactam Sod (Zosyn 3.375gm/ 100 ml (Pmx)) 100 ml @ 200 mls /hr Q6 IVPB Last administered on 04/15/17 08:37; Admin Dose 200 MLS/HR; Start 04/14/17 at 02:00 Acetaminophen (Tylenol Tab) 650 mg Q6H PRN PO PAIN AND OR ELEVATED TEMP Last administered on 04/15/17 00:53; Admin Dose 650 MG; Start 04/14/17 at 02:00 Acetaminophen/ Hydrocodone Bitart ([place] (5/325)) 1 tab Q4H PRN PO PAIN; Start 04/14/17 at 02:00 Morphine Sulfate 4 mg 4 mg Q4H PRN IV PAIN Last administered on 04/14/17 20:45 ; Admin Dose 4 MG; Start 04/14/17 at 02:00 Dextrose/Sodium Chloride (D5-1/2ns) 1,000 ml @ 75 mls/hr [id number] IV Last administered on 04/15/17 03:55; Admin Dose 75 MLS/HR; Start 04/14/17 at 02:00 Aspirin (Halfprin) 81 mg DAILY PO Last administered on 04/15/17 08:03; Admin Dose 81 MG; Start 04/15/17 at 09:00 Finasteride (Proscar) 5 mg DAILY PO Last administered on 04/15/17 08:03; Admin Dose 5 MG; Start 04/15/17 at 09:00 Tamsulosin HCl (Flomax) 0.4 mg BID PO Last administered on 04/15/17 08:03; Admin Dose 0.4 MG; Start 04/14/17 at 21:00 Atorvastatin Calcium (Lipitor) 20 mg HS PO Last administered on 04/14/17 21:28 ; Admin Dose 20 MG; Start 04/14/17 at 21:00 Oxycodone/ Acetaminophen (Percocet (5/ 325)) 1 tab Q4H PRN PO MILD PAIN (1-3); Start 04/14/17 at 20:30 Oxycodone/ Acetaminophen (Percocet (5/ 325)) 2 tab Q4H PRN PO MODERATE PAIN (4- 6); Start 04/14/17 at 20:30 Ondansetron HCl 4 mg 4 mg Q6H PRN IV NAUSEA; Start 04/14/17 at 20:30 Diltiazem HCl (Cardizem-D5W 125 Mg/125 ml Drip) 125 ml @ 5 mls/hr TITRATE IV Last administered on 04/15/17t 03:28; Admin Dose 2.5 MLS/HR; Start 04/15/17 at 03:00 MANJULA MORROW Apr 15, 2017 11:47
--- NOTE | 2017-04-15 13:02 | PN ---
Date/Time of Note Date/Time of Note DATE: 04/15/17 TIME: 12:54 Assessment/Plan VTE Prophylaxis VTE Prophylaxis Intervention: SCD's Lines/Catheters IV Catheter Type (from Nrs): Saline Lock Urinary Cath still in place: No Assessment/Plan Assessment/Plan - SVT last night, currently in SR, S/p Cardizrm gtt last night, cardiac enzymes *3, 12 lead EKG, Dr Hayden is asked to se pt in cardiology consultation. - Rectal abscess. S/p I& D by Dr Dawson, general surgery on 04/14. - Systemic inflammatory response syndrome with fevers and leukocytosis secondary to rectal abscess. Continue intravenous fluids and antibiotics. Dr. Salmeron is following in Infectious Disease consultation. - A 1 cm pleural-based soft tissue nodule in the right lower lung lobe. Dr. Monte is following Pulmonology consultation. - Benign prostatic hypertrophy. - Hypertension. - Dyslipidemia. Further recommendations based on clinical course. Plan of care discussed with Dr. Ponce. Exam/Review of Systems Vital Signs Vitals Vital Signs Date Time Temp Pulse Resp B/P Pulse Ox O2 Delivery O2 Flow Rate FiO2 04/15/17 12:00 91 24 113/80 100 Nasal Cannula 2.0 04/15/17 05:45 98.9 Intake and Output 04/14/17 04/14/17 04/15/17 14:59 22:59 06:59 Intake Total 200 ml 2255 ml 1267 ml Output Total 5 ml 150 ml Balance 200 ml 2250 ml 1117 ml Exam Constitutional: alert, oriented Neck: supple Respiratory: normal air movement Cardiovascular: nl pulses, regular rate and rhythm Gastrointestinal: non-tender, soft Extremities: normal pulses Results Result Diagram: 04/15/17 0308 04/15/17 0303 Results 24 hrs Laboratory Tests Test 04/15/17 03:03 04/15/17 03:07 04/15/17 03:08 Sodium Level 138 Potassium Level 3.8 Chloride Level 107 Carbon Dioxide Level 25 Anion Gap 10 Blood Urea Nitrogen 14 Creatinine 1.74 H Glucose Level 141 Lactic Acid Level 1.3 Calcium Level 8.2 L Thyroid Stimulating Hormone (TSH) < 0.015 L White Blood Count 12.9 H Red Blood Count 3.60 L Hemoglobin 10.3 L Hematocrit 30.8 L Mean Corpuscular Volume 85.6 Mean Corpuscular Hemoglobin 28.6 L Mean Corpuscular Hemoglobin Concent 33.4 Red Cell Distribution Width 12.1 Platelet Count 272 Mean Platelet Volume 9.1 Neutrophils % 80.5 H Lymphocytes % 6.4 L Monocytes % 12.1 H Eosinophils % 0.2 Basophils % 0.3 Nucleated Red Blood Cells % 0.0 Neutrophils # 10.3 H Lymphocytes # 0.8 Monocytes # 1.6 H Eosinophils # 0.0 Basophils # 0.0 Nucleated Red Blood Cells # 0.0 Medications Medications Current Medications Piperacillin Sod/ Tazobactam Sod (Zosyn 3.375gm/ 100 ml (Pmx)) 100 ml @ 200 mls /hr Q6 IVPB Last administered on 04/15/17 12:37; Admin Dose 200 MLS/HR; Start 04/14/17 at 02:00 Acetaminophen (Tylenol Tab) 650 mg Q6H PRN PO PAIN AND OR ELEVATED TEMP Last administered on 04/15/17 00:53; Admin Dose 650 MG; Start 04/14/17 at 02:00 Acetaminophen/ Hydrocodone Bitart ([place] (5/325)) 1 tab Q4H PRN PO PAIN; Start 04/14/17 at 02:00 Morphine Sulfate (morphine) 4 mg Q4H PRN IV PAIN Last administered on 20:45; Admin Dose 4 MG; Start 04/14/17 at 02:00 Aspirin (Halfprin) 81 mg DAILY PO Last administered on 04/15/17 08:03; Admin Dose 81 MG; Start 04/15/17 at 09:00 Finasteride (Proscar) 5 mg DAILY PO Last administered on 04/15/17 08:03; Admin Dose 5 MG; Start 04/15/17 at 09:00 Tamsulosin HCl (Flomax) 0.4 mg BID PO Last administered on 04/15/17 08:03; Admin Dose 0.4 MG; Start 04/14/17 at 21:00 Atorvastatin Calcium (Lipitor) 20 mg HS PO Last administered on 04/14/17 21:28 ; Admin Dose 20 MG; Start 04/14/17 at 21:00 Oxycodone/ Acetaminophen (Percocet (5/ 325)) 1 tab Q4H PRN PO MILD PAIN (1-3); Start 04/14/17 at 20:30 Oxycodone/ Acetaminophen (Percocet (5/ 325)) 2 tab Q4H PRN PO MODERATE PAIN (4- 6); Start 04/14/17 at 20:30 Ondansetron HCl 4 mg 4 mg Q6H PRN IV NAUSEA; Start 04/14/17 at 20:30 Diltiazem HCl 125 ml @ 5 mls/hr TITRATE IV Last administered on 04/15/17t 03:28 ; Admin Dose 2.5 MLS/HR; Start 04/15/17 at 03:00 Sodium Chloride (NS) 1,000 ml @ 100 mls/hr Q10H IV ; Start 04/15/17 at 13:00 HERBER NUGENT Apr 15, 2017 13:02
--- NOTE | 2017-04-15 13:30 | CONS ---
Date/Time of Note Date/Time of Note DATE: 04/15/17 TIME: 13:30 Assessment/Plan Assessment/Plan Chief Complaint/Hosp Course Patient is transferred to ICU secondary to arrhythmia status post Cardizem drip currently off he is sleeping, looks comfortable Temperature 98.7 pulse 91 respirations 24 blood pressure 113/80 saturation 100 on 2 L WBC 12.9 H&H 10.3 and 30.8 platelets 2 72 neutrophils 80.5 BUN 14 creatinine 1.74 Microbiology: Wound cultures pending Antimicrobials patient is on Zosyn, status post vancomycin Physical examination: Well-developed well-nourished middle-aged man who is in no distress. Head atraumatic normocephalic sclerae nonicteric neck is supple chest rise symmetrical breath sounds clear. Heart S1-S2 abdomen soft bowel sounds present extremities without cyanosis Assessment: 1. Status post perianal abscess drainage 2. Acute kidney insufficiency 3. Status post arrhythmia 4. BPH 5. Lung nodule Plan: Patient remains stable. Continue present care antibiotics await for wound culture, follow recommendations of consultants Problems: Consultation Date/Type/Reason Admit Date/Time Apr 13, 2017 at 23:28 Initial Consult Date 04/15/17 Type of Consultation: id Exam/Review of Systems Vital Signs Vitals Vital Signs Date Time Temp Pulse Resp B/P Pulse Ox O2 Delivery O2 Flow Rate FiO2 04/15/17 13:00 91 31 110/65 95 Nasal Cannula 2.0 04/15/17 12:00 98.7 Intake and Output 04/14/17 04/14/17 04/15/17 15:00 23:00 07:00 Intake Total 200 ml 2255 ml 1348 ml Output Total 5 ml 150 ml Balance 200 ml 2250 ml 1198 ml Results Result Diagram: 04/15/17 0308 04/15/17 0303 Results 24 hrs Laboratory Tests Test 04/15/17 03:03 04/15/17 03:07 04/15/17 03:08 Sodium Level 138 Potassium Level 3.8 Chloride Level 107 Carbon Dioxide Level 25 Anion Gap 10 Blood Urea Nitrogen 14 Creatinine 1.74 H Glucose Level 141 Lactic Acid Level 1.3 Calcium Level 8.2 L Thyroid Stimulating Hormone (TSH) < 0.015 L White Blood Count 12.9 H Red Blood Count 3.60 L Hemoglobin 10.3 L Hematocrit 30.8 L Mean Corpuscular Volume 85.6 Mean Corpuscular Hemoglobin 28.6 L Mean Corpuscular Hemoglobin Concent 33.4 Red Cell Distribution Width 12.1 Platelet Count 272 Mean Platelet Volume 9.1 Neutrophils % 80.5 H Lymphocytes % 6.4 L Monocytes % 12.1 H Eosinophils % 0.2 Basophils % 0.3 Nucleated Red Blood Cells % 0.0 Neutrophils # 10.3 H Lymphocytes # 0.8 Monocytes # 1.6 H Eosinophils # 0.0 Basophils # 0.0 Nucleated Red Blood Cells # 0.0 Medications Medications Current Medications Piperacillin Sod/ Tazobactam Sod (Zosyn 3.375gm/ 100 ml (Pmx)) 100 ml @ 200 mls /hr Q6 IVPB Last administered on 04/15/17 12:37; Admin Dose 200 MLS/HR; Start 04/14/17 at 02:00 Acetaminophen (Tylenol Tab) 650 mg Q6H PRN PO PAIN AND OR ELEVATED TEMP Last administered on 04/15/17 00:53; Admin Dose 650 MG; Start 04/14/17 at 02:00 Acetaminophen/ Hydrocodone Bitart ([place] (5/325)) 1 tab Q4H PRN PO PAIN; Start 04/14/17 at 02:00 Morphine Sulfate (morphine) 4 mg Q4H PRN IV PAIN Last administered on 20:45; Admin Dose 4 MG; Start 04/14/17 at 02:00 Aspirin (Halfprin) 81 mg DAILY PO Last administered on 04/15/17 08:03; Admin Dose 81 MG; Start 04/15/17 at 09:00 Finasteride (Proscar) 5 mg DAILY PO Last administered on 04/15/17 08:03; Admin Dose 5 MG; Start 04/15/17 at 09:00 Tamsulosin HCl (Flomax) 0.4 mg BID PO Last administered on 04/15/17 08:03; Admin Dose 0.4 MG; Start 04/14/17 at 21:00 Atorvastatin Calcium (Lipitor) 20 mg HS PO Last administered on 04/14/17 21:28 ; Admin Dose 20 MG; Start 04/14/17 at 21:00 Oxycodone/ Acetaminophen (Percocet (5/ 325)) 1 tab Q4H PRN PO MILD PAIN (1-3); Start 04/14/17 at 20:30 Oxycodone/ Acetaminophen (Percocet (5/ 325)) 2 tab Q4H PRN PO MODERATE PAIN (4- 6); Start 04/14/17 at 20:30 Ondansetron HCl 4 mg 4 mg Q6H PRN IV NAUSEA; Start 04/14/17 at 20:30 Diltiazem HCl 125 ml @ 5 mls/hr TITRATE IV Last administered on 04/15/17t 03:28 ; Admin Dose 2.5 MLS/HR; Start 04/15/17 at 03:00 Sodium Chloride (NS) 1,000 ml @ 100 mls/hr Q10H IV ; Start 04/15/17 at 13:00 JANIA NOLAN NP Apr 15, 2017 13:30
[2017-04-15] MEDS: SOD CHLORIDE 0.9% 1,000 ML IV SCH (13:37)
[2017-04-15 13:59] LABS: CK-MB 4.35 ng/ml (0.0-2.4)
[2017-04-15 14:01] LABS: TROPONIN-I 0.403 ng/ml (0.00-0.12)
--- NOTE | 2017-04-15 16:47 | RADRPT ---
PROCEDURE: CT Chest without contrast. CLINICAL INDICATION: Right lower lobe nodule seen on prior CT scan of the abdomen and pelvis. TECHNIQUE: Helical axial sections were obtained through the chest without intravenous contrast enh ancement. Coronal and sagittal reformatted images were obtained from the axial source images. Total exam DLP is 634.01 mGy-cm. CTDIvol is 14.80 mGy. One or more of the following dose reduction eric hniques were used: Automated exposure control, adjustment of the mA and/or kV according to patient s ize, use of iterative reconstruction technique. COMPARISON: CT scan of the abdomen and pelvis dated 04/13/2017 which demonstrated a pleural-based nodule measuring 1.1 cm in the medial right lower lobe. FINDINGS: There is an azygos fissure, a normal variant. There is mild air space disease in the lingula posteri leif, similar to the prior study. Mild atelectasis is present at the lung bases posteriorly. There i s no other pulmonary airspace or interstitial disease. Previously noted 1.1 cm pleural-based nodule in the right lower lobe medially is present on image 4- 58 and is unchanged. There is no other pulmonary nodule or mass lesion. There is no mediastinal or hilar lymphadenopathy or mass. There is no axillary, supraclavicular, or internal mammary lymphadenopathy. The thoracic aorta is not dilated. There is calcification in the aorta consistent with atheroscleros is. The heart size is normal. There is mild coronary artery calcification. There is no pleural effusion or pericardial effusion. Images through the upper abdomen demonstrate normal visualized portions of the liver, spleen, and ad renals. There are mild degenerative changes of the spine. There is no fracture or lytic lesion. IMPRESSION: 1. Azygos fissure, a normal variant. 2. Mild atelectasis at the lung bases and air space disease in the lingula, likely atelectasis. Thi s is unchanged. 3. Unchanged 1.1 cm right lower lobe nodule. Follow-up CT scan in 6 months advised. 4. Atherosclerosis. 5. Mild coronary artery calcification. 6. Mild degenerative changes of the spine. RPTAT: QQ .Juan Lucero MD, MD Date Time Electronically viewed and signed by .Juan Lucero MD, MD on 04/15/2017 16:46 .R/
[2017-04-15] MEDS: ATORVASTATIN 20 MG TAB PO SCH (21:41)
[2017-04-16] VITALS (12 sets, daily range): BP systolic 112–139; BP diastolic 61–82; PULSE 74–84; RESP 16–20
--- NOTE | 2017-04-16 00:21 | CONS ---
Date/Time of Note Date/Time of Note DATE: 04/16/17 TIME: 00:21 Assessment/Plan Assessment/Plan Chief Complaint/Hosp Course Chief Complaint/Hosp Course LEUKOCYTOSIS REACTIVE MONITOR CLOSELY Lung nodule- chronic per pulmonary 1.1 cm pleural based soft nodule is identified in the medial aspect of the right lower lobe. RESCAN IN 3 MO Thyroid cancer, status post thyroidectomy 2000. THYROGLOBULIN- P Status post perianal abscess drainage Acute kidney injury NSTEMI, status post arrhythmia BPH Problems: Consultation Date/Type/Reason Admit Date/Time Apr 13, 2017 at 23:28 Initial Consult Date 04/15/17 Type of Consultation: HEMEON Referring Provider: GUERO HEDRICK MD 24 HR Interval Summary Free Text/Dictation ALL NOTED COUNT - NOTED Exam/Review of Systems Vital Signs Vitals Vital Signs Date Time Temp Pulse Resp B/P Pulse Ox O2 Delivery O2 Flow Rate FiO2 04/16/17 00:18 98.8 83 20 112/65 98 04/15/17 18:00 Room Air 04/15/17 15:00 2.0 Intake and Output 04/15/17 04/15/17 04/16/17 15:00 23:00 07:00 Intake Total 2045 ml 300 ml Output Total 2250 ml Balance -205 ml 300 ml Exam GENERAL: Patient is a well-developed, well-nourished male, who is alert, responsive, in no acute distress. SKIN: Without generalized rash. HEENT: Within normal limits. NECK: Supple. Lymph nodes nonpalpable. CHEST: Decreased breath sounds at the bases. HEART: Without murmur or gallop. ABDOMEN: Soft, nontender. Nondistended, but protuberant. There is no organo-splenomegaly or masses. EXTREMITIES: Without cyanosis, clubbing, or edema. RECTAL: Deferred. GENITAL: Deferred. NEUROLOGICAL: No focal neurological abnormalities. Results Result Diagram: 04/15/17 0308 04/15/17 0303 Results 24 hrs Laboratory Tests Test 04/15/17 03:03 04/15/17 03:07 04/15/17 03:08 04/15/17 12:54 Sodium Level 138 Potassium Level 3.8 Chloride Level 107 Carbon Dioxide Level 25 Anion Gap 10 Blood Urea Nitrogen 14 Creatinine 1.74 H Glucose Level 141 Lactic Acid Level 1.3 Calcium Level 8.2 L Thyroid Stimulating Hormone (TSH) < 0.015 L White Blood Count 12.9 H Red Blood Count 3.60 L Hemoglobin 10.3 L Hematocrit 30.8 L Mean Corpuscular Volume 85.6 Mean Corpuscular Hemoglobin 28.6 L Mean Corpuscular Hemoglobin Concent 33.4 Red Cell Distribution Width 12.1 Platelet Count 272 Mean Platelet Volume 9.1 Neutrophils % 80.5 H Lymphocytes % 6.4 L Monocytes % 12.1 H Eosinophils % 0.2 Basophils % 0.3 Nucleated Red Blood Cells % 0.0 Neutrophils # 10.3 H Lymphocytes # 0.8 Monocytes # 1.6 H Eosinophils # 0.0 Basophils # 0.0 Nucleated Red Blood Cells # 0.0 Creatine Kinase 204 H Creatine Kinase Index 2.1 Creatinine Kinase MB (Mass) 4.35 H Troponin I 0.403 *H Medications Medications Current Medications Piperacillin Sod/ Tazobactam Sod (Zosyn 3.375gm/ 100 ml (Pmx)) 100 ml @ 200 mls /hr Q6 IVPB Last administered on 04/15/17 18:18; Admin Dose 200 MLS/HR; Start 04/14/17 at 02:00 Acetaminophen (Tylenol Tab) 650 mg Q6H PRN PO PAIN AND OR ELEVATED TEMP Last administered on 04/15/17 00:53; Admin Dose 650 MG; Start 04/14/17 at 02:00 Acetaminophen/ Hydrocodone Bitart ([place] (5/325)) 1 tab Q4H PRN PO PAIN; Start 04/14/17 at 02:00 Morphine Sulfate (morphine) 4 mg Q4H PRN IV PAIN Last administered on 20:45; Admin Dose 4 MG; Start 04/14/17 at 02:00 Aspirin (Halfprin) 81 mg DAILY PO Last administered on 04/15/17 08:03; Admin Dose 81 MG; Start 04/15/17 at 09:00 Finasteride (Proscar) 5 mg DAILY PO Last administered on 04/15/17 08:03; Admin Dose 5 MG; Start 04/15/17 at 09:00 Tamsulosin HCl (Flomax) 0.4 mg BID PO Last administered on 04/15/17 21:40; Admin Dose 0.4 MG; Start 04/14/17 at 21:00 Atorvastatin Calcium (Lipitor) 20 mg HS PO Last administered on 04/15/17 21:41 ; Admin Dose 20 MG; Start 04/14/17 at 21:00 Oxycodone/ Acetaminophen (Percocet (5/ 325)) 1 tab Q4H PRN PO MILD PAIN (1-3); Start 04/14/17 at 20:30 Oxycodone/ Acetaminophen (Percocet (5/ 325)) 2 tab Q4H PRN PO MODERATE PAIN (4- 6); Start 04/14/17 at 20:30 Ondansetron HCl 4 mg 4 mg Q6H PRN IV NAUSEA; Start 04/14/17 at 20:30 Sodium Chloride (NS) 1,000 ml @ 100 mls/hr Q10H IV Last administered on 13:37; Admin Dose 100 MLS/HR; Start 04/15/17 at 13:00 CIPRIANO BECKER MD Apr 16, 2017 00:21
[2017-04-16] MEDS: PIPER-TAZO 3.375 GM IV (PMX) 100 ML IVPB SCH ×2 (00:29→05:54)
[2017-04-16] MEDS: SOD CHLORIDE 0.9% 1,000 ML IV SCH ×4 (01:00→21:39)
[2017-04-16 06:45] LABS: ABNORMAL IP MESSAGE 1; BASOPHIL # 0.1 10^3/ul (0.0-0.1); BASOPHILS % 0.4 % (0.0-2.0); EOSINOPHILS # 0.1 10^3/ul (0.0-0.5); EOSINOPHILS % 0.7 % (0.0-7.0); HEMATOCRIT 31.9 % (42.0-52.0); LYMPHOCYTES # 1.6 10^3/ul (0.8-2.9); LYMPHOCYTES % 12.7 % (15.0-51.0); MEAN CORPUSCULAR HEMOGLOBIN 27.3 pg (29.0-33.0); MEAN CORPUSCULAR HGB CONC 31.3 g/dl (32.0-37.0); MEAN CORPUSCULAR VOLUME 87.2 fl (82.0-101.0); MEAN PLATELET VOLUME 9.7 fl (7.4-10.4); MONOCYTE # 1.6 10^3/ul (0.3-0.9); MONOCYTES % 12.4 % (0.0-11.0); NEUTROPHIL # 9.3 10^3/ul (1.6-7.5); NEUTROPHILS % 73.2 % (39.0-77.0); PLATELET COUNT 300 10^3/UL (140-415); POSITIVE DIFF @See below; RED BLOOD COUNT 3.66 10^6/ul (4.70-6.10); RED CELL DISTRIBUTION WIDTH 12.4 % (11.5-14.5); WHITE BLOOD COUNT 12.7 10^3/ul (4.8-10.8)
[2017-04-16 07:11] LABS: CALCIUM 8.3 mg/dl (8.4-10.2); CREATININE 3.95 mg/dl (0.61-1.24); POTASSIUM 4.6 mmol/L (3.5-5.1)
[2017-04-16 08:39] LABS: CK-MB 1.7 ng/ml (0.0-2.4)
[2017-04-16 08:45] LABS: TROPONIN-I 0.149 ng/ml (0.00-0.12)
[2017-04-16] MEDS: LEVOTHYROXINE 175 MCG TAB PO SCH (09:09)
[2017-04-16] MEDS: FINASTERIDE 5 MG TAB PO SCH (09:09)
[2017-04-16] MEDS: TAMSULOSIN (SR) 0.4 MG CAP PO SCH ×2 (09:10→21:26)
[2017-04-16] MEDS: ASPIRIN (EC) 81 MG TAB PO SCH (09:10)
--- NOTE | 2017-04-16 09:31 | CONS ---
Date/Time of Note Date/Time of Note DATE: 04/16/17 TIME: 09:29 Assessment/Plan Assessment/Plan Additional Assessment/Plan 56 yo with SVT, no rhythm strips in the chart - now sinus - will add small dose bb, follow clinical pending ECHO - full note dictated. #[id number] Consultation Date/Type/Reason Admit Date/Time Apr 13, 2017 at 23:28 Initial Consult Date 04/15/17 Type of Consultation: HEMEONC Exam/Review of Systems Vital Signs Vitals Vital Signs Date Time Temp Pulse Resp B/P Pulse Ox O2 Delivery O2 Flow Rate FiO2 04/16/17 08:10 84 04/16/17 07:51 98.2 16 121/73 92 04/15/17 18:00 Room Air 04/15/17 15:00 2.0 Intake and Output 04/15/17 04/15/17 04/16/17 15:00 23:00 07:00 Intake Total 2045 ml 300 ml 2200 ml Output Total 2250 ml 450 ml Balance -205 ml 300 ml 1750 ml Results Result Diagram: 04/16/17 0540 04/16/17 0540 Results 24 hrs Laboratory Tests Test 04/15/17 12:54 04/16/17 05:40 Creatine Kinase 204 H 130 Creatine Kinase Index 2.1 1.3 Creatinine Kinase MB (Mass) 4.35 H 1.70 Troponin I 0.403 *H 0.149 *H White Blood Count 12.7 H Red Blood Count 3.66 L Hemoglobin 10.0 L Hematocrit 31.9 L Mean Corpuscular Volume 87.2 Mean Corpuscular Hemoglobin 27.3 L Mean Corpuscular Hemoglobin Concent 31.3 L Red Cell Distribution Width 12.4 Platelet Count 300 Mean Platelet Volume 9.7 Neutrophils % 73.2 Lymphocytes % 12.7 L Monocytes % 12.4 H Eosinophils % 0.7 Basophils % 0.4 Nucleated Red Blood Cells % 0.0 Neutrophils # 9.3 H Lymphocytes # 1.6 Monocytes # 1.6 H Eosinophils # 0.1 Basophils # 0.1 Nucleated Red Blood Cells # 0.0 Sodium Level 144 Potassium Level 4.6 Chloride Level 110 Carbon Dioxide Level 26 Anion Gap 13 Blood Urea Nitrogen 28 #H Creatinine 3.95 #H Glucose Level 90 # Calcium Level 8.3 L Medications Medications Current Medications Piperacillin Sod/ Tazobactam Sod (Zosyn 3.375gm/ 100 ml (Pmx)) 100 ml @ 200 mls /hr Q6 IVPB Last administered on 04/16/17 05:54; Admin Dose 200 MLS/HR; Start 04/14/17 at 02:00 Acetaminophen (Tylenol Tab) 650 mg Q6H PRN PO PAIN AND OR ELEVATED TEMP Last administered on 04/15/17 00:53; Admin Dose 650 MG; Start 04/14/17 at 02:00 Acetaminophen/ Hydrocodone Bitart ([place] (5/325)) 1 tab Q4H PRN PO PAIN; Start 04/14/17 at 02:00 Morphine Sulfate (morphine) 4 mg Q4H PRN IV PAIN Last administered on 20:45; Admin Dose 4 MG; Start 04/14/17 at 02:00 Aspirin (Halfprin) 81 mg DAILY PO Last administered on 04/16/17 09:10; Admin Dose 81 MG; Start 04/15/17 at 09:00 Finasteride (Proscar) 5 mg DAILY PO Last administered on 04/16/17 09:09; Admin Dose 5 MG; Start 04/15/17 at 09:00 Tamsulosin HCl (Flomax) 0.4 mg BID PO Last administered on 04/16/17 09:10; Admin Dose 0.4 MG; Start 04/14/17 at 21:00 Atorvastatin Calcium (Lipitor) 20 mg HS PO Last administered on 04/15/17 21:41 ; Admin Dose 20 MG; Start 04/14/17 at 21:00 Oxycodone/ Acetaminophen (Percocet (5/ 325)) 1 tab Q4H PRN PO MILD PAIN (1-3); Start 04/14/17 at 20:30 Oxycodone/ Acetaminophen (Percocet (5/ 325)) 2 tab Q4H PRN PO MODERATE PAIN (4- 6); Start 04/14/17 at 20:30 Ondansetron HCl 4 mg 4 mg Q6H PRN IV NAUSEA; Start 04/14/17 at 20:30 Sodium Chloride (NS) 1,000 ml @ 100 mls/hr Q10H IV Last administered on 09:12; Admin Dose 100 MLS/HR; Start 04/15/17 at 13:00 MAR BEAN MD Apr 16, 2017 09:31
--- NOTE | 2017-04-16 10:47 | RADRPT ---
Echocardiogram Report Patient Name: BARRETT SPENCE Gender: Male Date: 1960 Study Date: 15-Apr-2017 Animal Shelter Supervisor: Iraj Krishnan [facility] Location: [address] Ref. Physician: MAR BEAN Quality: Adequate Procedures: Transthoracic echocardiogram with complete 2D, M-Mode, and doppler examination. Indications: Positive Troponins. 2D/M Mode Doppler Measurement Value Normal Ranges Measurement Value Normal Ranges LVIDd 2D 5.0 3.5 - 5.6 cm AV Peak Abdi 1.2 m/sec LVIDs 2D 3.1 2.1 - 4.1 cm AV Peak PG 5.0 mmHg FS 2D 38.5 % LVOT Peak Abdi 0.9 m/sec LVPWd 2D 1.3 0.6 - 1.1 cm LVOT Peak PG 3.0 mmHg IVSd 2D 1.3 0.6 - 1.1 cm MV E Peak Abdi 0.8 m/sec IVS/LVPW 2D 1.0 MV A Peak Abdi 0.6 m/sec AoR Diam 2D 3.7 2.0 - 3.7 cm MV E/A 1.4 LA/Ao 2D 1 0 - 1 MV Decel Time 165 msec EDV 2D 124.0 cm3 MV E/A 1.4 ESV 2D 28.9 cm3 TR Peak Abdi 2.4 m/sec LA Dimen 2D 3.9 2.3 - 4.0 cm TR Peak PG 24.0 mmHg RVSP 32.0 mmHg Findings Left Ventricle: Normal left ventricular systolic function. Normal left ventricular cavity size. Mild concentric left ventricular hypertrophy. Ejection fraction is visually estimated at 65 %. Tissue Doppler/Mitral Doppler indices are consistent with impaired relaxation (Stage I diastolic dysfunction). Right Ventricle: Normal right ventricular size. Normal right ventricular systolic function. Left Atrium: The left atrium is normal in size. Right Atrium: The right atrium is normal in size. Mitral Valve: Mild mitral leaflet calcification. Mild mitral annular calcification. Trace mitral regurgitation. Aortic Valve: Aortic cusps appear mildly calcified. Trace aortic valve regurgitation. Tricuspid Valve: Normal appearance of the tricuspid valve. Estimated peak PA systolic pressure 32 mmHg. There is mild tricuspid regurgitation. Pulmonic Valve: Pulmonic valve not well visualized. There is trace pulmonic regurgitation. Pericardium: Normal pericardium with no significant pericardial effusion. Aorta: Normal aortic root. IVC: Normal size with poor respiratory collapse consistent with elevated right atrial pressure. Conclusions 1.Normal left ventricular systolic function. Normal left ventricular cavity size. Mild concentric left ventricular hypertrophy. Ejection fraction is visually estimated at 65 %. Tissue Doppler/Mitral Doppler indices are consistent with impaired relaxation (Stage I diastolic dysfunction). 2.Mild mitral leaflet calcification. Mild mitral annular calcification. Trace mitral regurgitation. 3.Normal appearance of the tricuspid valve. Estimated peak PA systolic pressure 32 mmHg. There is mild tricuspid regurgitation. Electronically Signed By: Mar Bean 16-Apr-2017 10:47:07 -0700 Patient Name: BARRETT SPENCE Study Date: 15-Apr-[id number]
--- NOTE | 2017-04-16 11:40 | CONS ---
Date/Time of Note Date/Time of Note DATE: 04/16/17 TIME: 11:39 Consult Date/Type/Reason Admit Date/Time Apr 13, 2017 at 23:28 Initial Consult Date 04/15/17 Type of Consultation: Pulmonary Subjective Comfortable this morning no new events. Denies shortness of breath. Objective Vital Signs Date Time Temp Pulse Resp B/P Pulse Ox O2 Delivery O2 Flow Rate FiO2 04/16/17 11:32 98.5 76 16 124/74 95 04/16/17 08:00 Nasal Cannula 2.0 Intake and Output 04/15/17 04/15/17 04/16/17 15:00 23:00 07:00 Intake Total 2045 ml 300 ml 2200 ml Output Total 2250 ml 450 ml Balance -205 ml 300 ml 1750 ml Exam GENERAL: VITAL SIGNS: per chart NECK: Supple. No JVD or lymphadenopathy. CARDIAC EXAM: S1, S2. No added sounds or murmurs. CHEST: clear bilaterally, No added sounds, rales or wheezes ABDOMEN: Soft, nontender. No guarding or rebound. EXTREMITIES: No cyanosis, clubbing or edema. NEUROLOGIC: Generalized weakness. No focal deficits. Results/Medications Result Diagram: 04/16/17 0540 04/16/17 0540 Results 24 hrs Laboratory Tests Test 04/15/17 12:54 04/16/17 05:40 Creatine Kinase 204 H 130 Creatine Kinase Index 2.1 1.3 Creatinine Kinase MB (Mass) 4.35 H 1.70 Troponin I 0.403 *H 0.149 *H White Blood Count 12.7 H Red Blood Count 3.66 L Hemoglobin 10.0 L Hematocrit 31.9 L Mean Corpuscular Volume 87.2 Mean Corpuscular Hemoglobin 27.3 L Mean Corpuscular Hemoglobin Concent 31.3 L Red Cell Distribution Width 12.4 Platelet Count 300 Mean Platelet Volume 9.7 Neutrophils % 73.2 Lymphocytes % 12.7 L Monocytes % 12.4 H Eosinophils % 0.7 Basophils % 0.4 Nucleated Red Blood Cells % 0.0 Neutrophils # 9.3 H Lymphocytes # 1.6 Monocytes # 1.6 H Eosinophils # 0.1 Basophils # 0.1 Nucleated Red Blood Cells # 0.0 Sodium Level 144 Potassium Level 4.6 Chloride Level 110 Carbon Dioxide Level 26 Anion Gap 13 Blood Urea Nitrogen 28 #H Creatinine 3.95 #H Glucose Level 90 # Calcium Level 8.3 L Medications Current Medications Acetaminophen (Tylenol Tab) 650 mg Q6H PRN PO PAIN AND OR ELEVATED TEMP Last administered on 04/15/17 00:53; Admin Dose 650 MG; Start 04/14/17 at 02:00 Acetaminophen/ Hydrocodone Bitart ([place] (5/325)) 1 tab Q4H PRN PO PAIN; Start 04/14/17 at 02:00 Morphine Sulfate (morphine) 4 mg Q4H PRN IV PAIN Last administered on 20:45; Admin Dose 4 MG; Start 04/14/17 at 02:00 Aspirin (Halfprin) 81 mg DAILY PO Last administered on 04/16/17 09:10; Admin Dose 81 MG; Start 04/15/17 at 09:00 Finasteride (Proscar) 5 mg DAILY PO Last administered on 04/16/17 09:09; Admin Dose 5 MG; Start 04/15/17 at 09:00 Tamsulosin HCl (Flomax) 0.4 mg BID PO Last administered on 04/16/17 09:10; Admin Dose 0.4 MG; Start 04/14/17 at 21:00 Atorvastatin Calcium (Lipitor) 20 mg HS PO Last administered on 04/15/17 21:41 ; Admin Dose 20 MG; Start 04/14/17 at 21:00 Oxycodone/ Acetaminophen (Percocet (5/ 325)) 1 tab Q4H PRN PO MILD PAIN (1-3); Start 04/14/17 at 20:30 Oxycodone/ Acetaminophen (Percocet (5/ 325)) 2 tab Q4H PRN PO MODERATE PAIN (4- 6); Start 04/14/17 at 20:30 Ondansetron HCl 4 mg 4 mg Q6H PRN IV NAUSEA; Start 04/14/17 at 20:30 Sodium Chloride 1,000 ml @ 100 mls/hr Q10H IV Last administered on 04/16/17 09:12; Admin Dose 100 MLS/HR; Start 04/15/17 at 13:00 Piperacillin Sod/ Tazobactam Sod (Zosyn 2.25gm/ 50ml (Pmx)) 50 ml @ 200 mls/hr Q6 IVPB ; Start 04/16/17 at 12:00 Assessment/Plan Chief Complaint/Hosp Course Assessment 1. Solitary pulmonary nodule right lower lobe appears chronic in nature 2. Chronic renal insufficiency Recommendations Repeat CT scan in 6 months time. No further workup needed at this point. Problems: MICHELLE HANNA MD, [facility] Apr 16, 2017 11:40
[2017-04-16] MEDS ORDERED: PIPER-TAZO 2.25 GM (PMX) 50 ML IVPB SCH (12:00)
--- NOTE | 2017-04-16 12:23 | CONS ---
DATE OF ADMISSION: 04/13/2017 DATE OF CONSULTATION: 04/16/2017 REFERRING PHYSICIAN: Waldo Ponce MD REASON FOR EVALUATION: SVT. HISTORY OF PRESENT ILLNESS: Mr. Cline is a 56-year-old gentleman with history of thyroid cancer who is status post thyroidectomy and radiation therapy, history of COPD, history of BPH, history of hypertension who comes to the hospital now for evaluation of perirectal abscess. The patient had a surgery and after the surgery had an episode of SVT. I do not have a SVT documented anywhere in the chart. The patient appears to be in sinus rhythm now. He has been on telemetry overnight. Currently he appears to be hemodynamically stable and fairly comfortable. I think for now conservative therapy is expected. We will followup with 2D echo and provide more care when more information about his condition becomes available. PAST MEDICAL HISTORY: Hypertension, dyslipidemia, COPD, BPH, hypertension, history of thyroid cancer, status post thyroidectomy, history of perirectal abscess, status post drainage. ALLERGIES: NONE KNOWN. SOCIAL HISTORY: She does smoke. Does not drink. Does not use drugs. FAMILY HISTORY: Family history is negative for sudden cardiac or premature coronary artery disease. MEDICATION: Aspirin 81 mg a day, Proscar 5 mg once a daily, levothyroxine 175 mcg once a day, tamsulosin 4 mg once a day, oxycodone and Tylenol. REVIEW OF SYSTEMS: GENERAL: There is no fevers, no chills. CARDIOVASCULAR: No chest pain reported. RESPIRATORY: No respiratory distress. GASTROINTESTINAL: No nausea or vomiting. NEUROLOGIC: No history of anxiety. PHYSICAL EXAMINATION: VITAL SIGNS: Temperature is 98.2, heart rate 84, blood pressure 106/ . GENERAL: He is well nourished, in no acute distress. Alert times 3. He is aware of his condition. HEENT: Normocephalic, atraumatic. Eyes anicteric. NECK: Supple. No JVD. No thyromegaly. No lymphadenopathy. HEART: Regular, soft 1/6 systolic murmur at the base. PMI is nondisplaced. I do not hear a S3 or S4. ABDOMEN: Distended, bowel sounds are present. EXTREMITIES: No ataxia. No cyanosis, clubbing, or edema. LABORATORY: White cell count 12.7, hemoglobin 10.0, platelets 300. Sodium 144, potassium 4.6. His troponin is from 0.4 now down to 0.14. ASSESSMENT AND PLAN: 1. The patient had supraventricular tachycardia (SVT) not documented in the chart. We will try to obtain records if possible. We will add a small dose of beta torin now given the mild elevated troponin. 2. Mild elevated troponins in the setting of supraventricular tachycardia (SVT). The patient had a procedure recently. The patient tolerated well. We will recommend medical management for now. We will obtain a 2D EKG. 3. Hypothyroidism. His TSH is low at 0.015. Defer to primary team for evaluation. 4. Perirectal abscess. Continue patient on antibiotics. I would like to thank Dr. Ponce for referring this patient for my evaluation. Dictated By: Daniel Vasquez MD /ana/dustin /Document#: [id number]
[2017-04-16] MEDS: ONDANSETRON 4 MG INJ IV PRN (12:31)
--- NOTE | 2017-04-16 13:41 | CONS ---
Date/Time of Note Date/Time of Note DATE: 04/16/17 TIME: 13:37 Assessment/Plan Assessment/Plan Chief Complaint/Hosp Course Acute changes patient looks comfortable denies pain Temperature 98.5 pulse 76 respirations 16 blood pressure 124/74 saturation 95 on room air WBC 12.7 H&H 10 and 31.9 platelets 300 no shift BUN 28 creatinine 3.95 troponin 0 0.149 Microbiology: Wound cultures pending, negative preliminary Antimicrobials: Zosyn, status post vancomycin Physical examination: Well-developed well-nourished middle-aged man who is in no distress. Head atraumatic normocephalic sclerae nonicteric neck is supple chest rise symmetrical breath sounds clear. Heart S1-S2 abdomen soft bowel sounds present extremities without cyanosis Assessment: 1. Status post perianal abscess drainage 2. Acute kidney injury 3. NSTEMI, status post arrhythmia 4. BPH 5. Lung nodule==> chronic per pulmonary Plan: Patient remains stable. Continue present care, change Zosyn to Invanz, await for drainage culture, consider nephrology evaluation given worsening kidney f-n, follow recommendations of consultants Problems: Consultation Date/Type/Reason Admit Date/Time Apr 13, 2017 at 23:28 Initial Consult Date 04/15/17 Type of Consultation: id Exam/Review of Systems Vital Signs Vitals Vital Signs Date Time Temp Pulse Resp B/P Pulse Ox O2 Delivery O2 Flow Rate FiO2 04/16/17 12:17 74 04/16/17 11:32 98.5 16 124/74 95 04/16/17 08:00 Nasal Cannula 2.0 Intake and Output 04/15/17 04/15/17 04/16/17 15:00 23:00 07:00 Intake Total 2045 ml 300 ml 2200 ml Output Total 2250 ml 450 ml Balance -205 ml 300 ml 1750 ml Results Result Diagram: 04/16/17 0540 04/16/17 0540 Results 24 hrs Laboratory Tests Test 04/16/17 05:40 White Blood Count 12.7 H Red Blood Count 3.66 L Hemoglobin 10.0 L Hematocrit 31.9 L Mean Corpuscular Volume 87.2 Mean Corpuscular Hemoglobin 27.3 L Mean Corpuscular Hemoglobin Concent 31.3 L Red Cell Distribution Width 12.4 Platelet Count 300 Mean Platelet Volume 9.7 Neutrophils % 73.2 Lymphocytes % 12.7 L Monocytes % 12.4 H Eosinophils % 0.7 Basophils % 0.4 Nucleated Red Blood Cells % 0.0 Neutrophils # 9.3 H Lymphocytes # 1.6 Monocytes # 1.6 H Eosinophils # 0.1 Basophils # 0.1 Nucleated Red Blood Cells # 0.0 Sodium Level 144 Potassium Level 4.6 Chloride Level 110 Carbon Dioxide Level 26 Anion Gap 13 Blood Urea Nitrogen 28 #H Creatinine 3.95 #H Glucose Level 90 # Calcium Level 8.3 L Creatine Kinase 130 Creatine Kinase Index 1.3 Creatinine Kinase MB (Mass) 1.70 Troponin I 0.149 *H Medications Medications Current Medications Acetaminophen (Tylenol Tab) 650 mg Q6H PRN PO PAIN AND OR ELEVATED TEMP Last administered on 04/15/17 00:53; Admin Dose 650 MG; Start 04/14/17 at 02:00 Acetaminophen/ Hydrocodone Bitart ([place] (5/325)) 1 tab Q4H PRN PO PAIN; Start 04/14/17 at 02:00 Morphine Sulfate (morphine) 4 mg Q4H PRN IV PAIN Last administered on 20:45; Admin Dose 4 MG; Start 04/14/17 at 02:00 Aspirin (Halfprin) 81 mg DAILY PO Last administered on 04/16/17 09:10; Admin Dose 81 MG; Start 04/15/17 at 09:00 Finasteride (Proscar) 5 mg DAILY PO Last administered on 04/16/17 09:09; Admin Dose 5 MG; Start 04/15/17 at 09:00 Tamsulosin HCl (Flomax) 0.4 mg BID PO Last administered on 04/16/17 09:10; Admin Dose 0.4 MG; Start 04/14/17 at 21:00 Atorvastatin Calcium (Lipitor) 20 mg HS PO Last administered on 04/15/17 21:41 ; Admin Dose 20 MG; Start 04/14/17 at 21:00 Oxycodone/ Acetaminophen (Percocet (5/ 325)) 1 tab Q4H PRN PO MILD PAIN (1-3); Start 04/14/17 at 20:30 Oxycodone/ Acetaminophen (Percocet (5/ 325)) 2 tab Q4H PRN PO MODERATE PAIN (4- 6); Start 04/14/17 at 20:30 Ondansetron HCl 4 mg 4 mg Q6H PRN IV NAUSEA Last administered on 04/16/17 12: 31; Admin Dose 4 MG; Start 04/14/17 at 20:30 Sodium Chloride 1,000 ml @ 100 mls/hr Q10H IV Last administered on 04/16/17 09:12; Admin Dose 100 MLS/HR; Start 04/15/17 at 13:00 Piperacillin Sod/ Tazobactam Sod (Zosyn 2.25gm/ 50ml (Pmx)) 50 ml @ 100 mls/hr Q6 IVPB Last administered on 04/16/17 12:24; Admin Dose 200 MLS/HR; Start at 12:00 JANIA NOLAN NP Apr 16, 2017 13:41
--- NOTE | 2017-04-16 14:12 | RADRPT ---
Vent Rate: 84 bpm RR Interval: 0 msec NM Interval: 166 msec QRS Duration: 96 msec QT Interval: 376 msec QTC Interval: 444 msec P-R-T [place]: 51 - 22 - 27 degrees Normal sinus rhythm Cannot rule out Anterior infarct , age undetermined Abnormal ECG Electronically Signed By: Mateo Maynard [id number]
[2017-04-16] MEDS: ERTAPENEM SODIUM 1 GM in SOD CHLORIDE 0.9% 100 ML IVPB SCH (15:11)
--- NOTE | 2017-04-16 16:28 | PN ---
Date/Time of Note Date/Time of Note DATE: 04/16/17 TIME: 16:22 Assessment/Plan VTE Prophylaxis VTE Prophylaxis Intervention: SCD's Lines/Catheters IV C[facility]ter Type (from [facility]): Peripheral IV Urinary Cath still in place: No Assessment/Plan Chief Complaint/Hosp Course Assessment/Plan - ALIX, continue IV fluids, Dr Morris is asked to see pt in nephrology consultation. - Elevated troponins in the setting of supraventricular tachycardia (SVT). Dr Chavira is following in cardiology consultation. - Rectal abscess. S/p I& D by Dr Dawson, general surgery on 04/14. - Systemic inflammatory response syndrome with fevers and leukocytosis secondary to rectal abscess. Continue intravenous fluids and antibiotics. Dr. Salmeron is following in Infectious Disease consultation. - A 1 cm pleural-based soft tissue nodule in the right lower lung lobe. Dr. Monte is following Pulmonology consultation. - Benign prostatic hypertrophy. - Hypertension. - Dyslipidemia. Further recommendations based on clinical course. Plan of care discussed with Dr. Ponce. Problems: Exam/Review of Systems Vital Signs Vitals Vital Signs Date Time Temp Pulse Resp B/P Pulse Ox O2 Delivery O2 Flow Rate FiO2 04/16/17 16:20 83 04/16/17 11:32 98.5 16 124/74 95 04/16/17 08:00 Nasal Cannula 2.0 Intake and Output 04/15/17 04/15/17 04/16/17 15:00 23:00 07:00 Intake Total 2045 ml 300 ml 2200 ml Output Total 2250 ml 450 ml Balance -205 ml 300 ml 1750 ml Exam Constitutional: alert, oriented Neck: supple Respiratory: normal air movement Cardiovascular: nl pulses, regular rate and rhythm Gastrointestinal: non-tender, soft Extremities: normal pulses Results Result Diagram: 04/16/17 0540 04/16/17 0540 Results 24 hrs Laboratory Tests Test 04/16/17 05:40 White Blood Count 12.7 H Red Blood Count 3.66 L Hemoglobin 10.0 L Hematocrit 31.9 L Mean Corpuscular Volume 87.2 Mean Corpuscular Hemoglobin 27.3 L Mean Corpuscular Hemoglobin Concent 31.3 L Red Cell Distribution Width 12.4 Platelet Count 300 Mean Platelet Volume 9.7 Neutrophils % 73.2 Lymphocytes % 12.7 L Monocytes % 12.4 H Eosinophils % 0.7 Basophils % 0.4 Nucleated Red Blood Cells % 0.0 Neutrophils # 9.3 H Lymphocytes # 1.6 Monocytes # 1.6 H Eosinophils # 0.1 Basophils # 0.1 Nucleated Red Blood Cells # 0.0 Sodium Level 144 Potassium Level 4.6 Chloride Level 110 Carbon Dioxide Level 26 Anion Gap 13 Blood Urea Nitrogen 28 #H Creatinine 3.95 #H Glucose Level 90 # Calcium Level 8.3 L Creatine Kinase 130 Creatine Kinase Index 1.3 Creatinine Kinase MB (Mass) 1.70 Troponin I 0.149 *H Medications Medications Current Medications Acetaminophen (Tylenol Tab) 650 mg Q6H PRN PO PAIN AND OR ELEVATED TEMP Last administered on 04/15/17 00:53; Admin Dose 650 MG; Start 04/14/17 at 02:00 Acetaminophen/ Hydrocodone Bitart ([place] (5/325)) 1 tab Q4H PRN PO PAIN; Start 04/14/17 at 02:00 Morphine Sulfate (morphine) 4 mg Q4H PRN IV PAIN Last administered on 20:45; Admin Dose 4 MG; Start 04/14/17 at 02:00 Aspirin (Halfprin) 81 mg DAILY PO Last administered on 04/16/17 09:10; Admin Dose 81 MG; Start 04/15/17 at 09:00 Finasteride (Proscar) 5 mg DAILY PO Last administered on 04/16/17 09:09; Admin Dose 5 MG; Start 04/15/17 at 09:00 Tamsulosin HCl (Flomax) 0.4 mg BID PO Last administered on 04/16/17 09:10; Admin Dose 0.4 MG; Start 04/14/17 at 21:00 Atorvastatin Calcium (Lipitor) 20 mg HS PO Last administered on 04/15/17 21:41 ; Admin Dose 20 MG; Start 04/14/17 at 21:00 Oxycodone/ Acetaminophen (Percocet (5/ 325)) 1 tab Q4H PRN PO MILD PAIN (1-3); Start 04/14/17 at 20:30 Oxycodone/ Acetaminophen (Percocet (5/ 325)) 2 tab Q4H PRN PO MODERATE PAIN (4- 6); Start 04/14/17 at 20:30 Ondansetron HCl 4 mg 4 mg Q6H PRN IV NAUSEA Last administered on 04/16/17 12: 31; Admin Dose 4 MG; Start 04/14/17 at 20:30 Sodium Chloride 1,000 ml @ 100 mls/hr Q10H IV Last administered on 04/16/17 09:12; Admin Dose 100 MLS/HR; Start 04/15/17 at 13:00 Ertapenem/Sodium Chloride (Invanz/NS) 100 ml @ 200 mls/hr Q24H IVPB Last administered on 04/16/17 15:11; Admin Dose 200 MLS/HR; Start 04/16/17 at 14:00 HERBER NUGENT Apr 16, 2017 16:28
--- NOTE | 2017-04-16 18:36 | CONS ---
Date/Time of Note Date/Time of Note DATE: 04/16/17 TIME: 18:35 Assessment/Plan Assessment/Plan Additional Assessment/Plan 1. Acute kidney injury due to ATN + nephrotoxicity 2. SIRS 3. Rectal abscess s/p I & D 4. Hypertension 5. BPH 6. HL Plan : Current pt is on IV ertapenem, continue it IVF NS at 100 cc/hr I will order Urine studies including Urine prot/cr ration, Urine Na, Urine Creatinine, Urine eosinophils CK total, uric acid Renal US has been ordered Thanks for consultaiton,we will continue to follow up on patient . Consultation Date/Type/Reason Admit Date/Time Apr 13, 2017 at 23:28 Date of Consultation: Apr 16, 2017 Type of Consultation: NEPHROLOGY Reason for Consultation acute Kidney injury Referring Provider: RAMSES JUAREZ Hx of Present Illness 56 M with PMHx of HL, Hypothyroidism, who was admitted with rectal abscess s/p I &D. pt admitted with normal creatinine, he was treated ith IV zosyn initially. his Creatinine bumped to 1.76- then again bumped to 3.95 today. Renal has been consutled for acute kidney injury. pt was seen in AM. He has been switched to ertapenm for iV abx. Constitutional: no complaints Eyes: no complaints ENT: no complaints Respiratory: no complaints Cardiovascular: no complaints Gastrointestinal: no complaints, pain (Perianal pain mostly on the right) Genitourinary: no complaints, other (History of BPH) Musculoskeletal: no complaints Skin: no complaints Neurologic: no complaints Endocrine: no complaints Lymphatic: no complaints Psychological: nl mood/affect, no complaints Past Medical History Medical History: hypertension, other (COPD, BPH, hypertension, osteoporosis, dyslipidemia) Past Surgical History Past Surgical Hx: other (Thyroid surgery 2000, Cyst removal on tail bone ) Family History Significant Family History: no pertinent family hx Social History Alcohol Use: none Smoking Status: Former smoker Drug Use: none Exam/Review of Systems Vital Signs Vitals Vital Signs Date Time Temp Pulse Resp B/P Pulse Ox O2 Delivery O2 Flow Rate FiO2 04/16/17 16:48 98.6 84 18 138/79 93 04/16/17 08:00 Nasal Cannula 2.0 Intake and Output 04/15/17 04/15/17 04/16/17 15:00 23:00 07:00 Intake Total 2045 ml 300 ml 2200 ml Output Total 2250 ml 450 ml Balance -205 ml 300 ml 1750 ml Exam Constitutional: alert Psych: no complaints Head: normocephalic Eyes: nl conjunctiva ENMT: nl external ears & nose Neck: non-tender, supple Respiratory: clear to auscultation, normal air movement Cardiovascular: nl pulses, regular rate and rhythm Gastrointestinal: non-tender, soft Musculoskeletal: nl extremities to inspection, nl gait and stance Extremities: normal pulses Neurological: ENGINEERING ASSISTANT II-XII intact, nl mental status, nl speech, nl strength Results Result Diagram: 04/16/1740 04/16/17 0540 Results 24 hrs Laboratory Tests Test 04/16/17 05:40 White Blood Count 12.7 H Red Blood Count 3.66 L Hemoglobin 10.0 L Hematocrit 31.9 L Mean Corpuscular Volume 87.2 Mean Corpuscular Hemoglobin 27.3 L Mean Corpuscular Hemoglobin Concent 31.3 L Red Cell Distribution Width 12.4 Platelet Count 300 Mean Platelet Volume 9.7 Neutrophils % 73.2 Lymphocytes % 12.7 L Monocytes % 12.4 H Eosinophils % 0.7 Basophils % 0.4 Nucleated Red Blood Cells % 0.0 Neutrophils # 9.3 H Lymphocytes # 1.6 Monocytes # 1.6 H Eosinophils # 0.1 Basophils # 0.1 Nucleated Red Blood Cells # 0.0 Sodium Level 144 Potassium Level 4.6 Chloride Level 110 Carbon Dioxide Level 26 Anion Gap 13 Blood Urea Nitrogen 28 #H Creatinine 3.95 #H Glucose Level 90 # Calcium Level 8.3 L Creatine Kinase 130 Creatine Kinase Index 1.3 Creatinine Kinase MB (Mass) 1.70 Troponin I 0.149 *H Medications Medications Current Medications Acetaminophen (Tylenol Tab) 650 mg Q6H PRN PO PAIN AND OR ELEVATED TEMP Last administered on 04/15/17 00:53; Admin Dose 650 MG; Start 04/14/17 at 02:00 Acetaminophen/ Hydrocodone Bitart ([place] (5/325)) 1 tab Q4H PRN PO PAIN; Start 04/14/17 at 02:00 Morphine Sulfate (morphine) 4 mg Q4H PRN IV PAIN Last administered on 20:45; Admin Dose 4 MG; Start 04/14/17 at 02:00 Aspirin (Halfprin) 81 mg DAILY PO Last administered on 04/16/17 09:10; Admin Dose 81 MG; Start 04/15/17 at 09:00 Finasteride (Proscar) 5 mg DAILY PO Last administered on 04/16/17 09:09; Admin Dose 5 MG; Start 04/15/17 at 09:00 Tamsulosin HCl (Flomax) 0.4 mg BID PO Last administered on 04/16/17 09:10; Admin Dose 0.4 MG; Start 04/14/17 at 21:00 Atorvastatin Calcium (Lipitor) 20 mg HS PO Last administered on 04/15/17 21:41 ; Admin Dose 20 MG; Start 04/14/17 at 21:00 Oxycodone/ Acetaminophen (Percocet (5/ 325)) 1 tab Q4H PRN PO MILD PAIN (1-3); Start 04/14/17 at 20:30 Oxycodone/ Acetaminophen (Percocet (5/ 325)) 2 tab Q4H PRN PO MODERATE PAIN (4- 6); Start 04/14/17 at 20:30 Ondansetron HCl 4 mg 4 mg Q6H PRN IV NAUSEA Last administered on 04/16/17 12: 31; Admin Dose 4 MG; Start 04/14/17 at 20:30 Sodium Chloride 1,000 ml @ 100 mls/hr Q10H IV Last administered on 04/16/17 09:12; Admin Dose 100 MLS/HR; Start 04/15/17 at 13:00 Ertapenem/Sodium Chloride (Invanz/NS) 100 ml @ 200 mls/hr Q24H IVPB Last administered on 04/16/17 15:11; Admin Dose 200 MLS/HR; Start 04/16/17 at 14:00 SHARON ELLISON MD Apr 16, 2017 18:36
--- NOTE | 2017-04-16 18:40 | CONS ---
Date/Time of Note Date/Time of Note DATE: 04/16/17 TIME: 18:39 Assessment/Plan Assessment/Plan Chief Complaint/Hosp Course Chief Complaint/Hosp Course LEUKOCYTOSIS REACTIVE MONITOR CLOSELY Lung nodule- chronic per pulmonary 1.1 cm pleural based soft nodule is identified in the medial aspect of the right lower lobe. RESCAN IN 3 MO Thyroid cancer, status post thyroidectomy 2000. THYROGLOBULIN- P Status post perianal abscess drainage Acute kidney injury NSTEMI, status post arrhythmia BPH Problems: Consultation Date/Type/Reason Admit Date/Time Apr 13, 2017 at 23:28 Initial Consult Date 04/15/17 Type of Consultation: HEMEON Referring Provider: GUERO HEDRICK MD 24 HR Interval Summary Free Text/Dictation NO NEW EVENTS FEVER DOWN NO BLEEDING Exam/Review of Systems Vital Signs Vitals Vital Signs Date Time Temp Pulse Resp B/P Pulse Ox O2 Delivery O2 Flow Rate FiO2 04/16/17 16:48 98.6 84 18 138/79 93 04/16/17 08:00 Nasal Cannula 2.0 Intake and Output 04/15/17 04/15/17 04/16/17 15:00 23:00 07:00 Intake Total 2045 ml 300 ml 2200 ml Output Total 2250 ml 450 ml Balance -205 ml 300 ml 1750 ml Exam GENERAL: Patient is a well-developed, well-nourished male, who is alert, responsive, in no acute distress. SKIN: Without generalized rash. HEENT: Within normal limits. NECK: Supple. Lymph nodes nonpalpable. CHEST: Decreased breath sounds at the bases. HEART: Without murmur or gallop. ABDOMEN: Soft, nontender. Nondistended, but protuberant. There is no organo-splenomegaly or masses. EXTREMITIES: Without cyanosis, clubbing, or edema. RECTAL: Deferred. GENITAL: Deferred. NEUROLOGICAL: No focal neurological abnormalities. Results Result Diagram: 04/16/17 0540 04/16/17 0540 Results 24 hrs Laboratory Tests Test 04/16/17 05:40 White Blood Count 12.7 H Red Blood Count 3.66 L Hemoglobin 10.0 L Hematocrit 31.9 L Mean Corpuscular Volume 87.2 Mean Corpuscular Hemoglobin 27.3 L Mean Corpuscular Hemoglobin Concent 31.3 L Red Cell Distribution Width 12.4 Platelet Count 300 Mean Platelet Volume 9.7 Neutrophils % 73.2 Lymphocytes % 12.7 L Monocytes % 12.4 H Eosinophils % 0.7 Basophils % 0.4 Nucleated Red Blood Cells % 0.0 Neutrophils # 9.3 H Lymphocytes # 1.6 Monocytes # 1.6 H Eosinophils # 0.1 Basophils # 0.1 Nucleated Red Blood Cells # 0.0 Sodium Level 144 Potassium Level 4.6 Chloride Level 110 Carbon Dioxide Level 26 Anion Gap 13 Blood Urea Nitrogen 28 #H Creatinine 3.95 #H Glucose Level 90 # Calcium Level 8.3 L Creatine Kinase 130 Creatine Kinase Index 1.3 Creatinine Kinase MB (Mass) 1.70 Troponin I 0.149 *H Medications Medications Current Medications Acetaminophen (Tylenol Tab) 650 mg Q6H PRN PO PAIN AND OR ELEVATED TEMP Last administered on 04/15/17 00:53; Admin Dose 650 MG; Start 04/14/17 at 02:00 Acetaminophen/ Hydrocodone Bitart ([place] (5/325)) 1 tab Q4H PRN PO PAIN; Start 04/14/17 at 02:00 Morphine Sulfate (morphine) 4 mg Q4H PRN IV PAIN Last administered on 20:45; Admin Dose 4 MG; Start 04/14/17 at 02:00 Aspirin (Halfprin) 81 mg DAILY PO Last administered on 04/16/17 09:10; Admin Dose 81 MG; Start 04/15/17 at 09:00 Finasteride (Proscar) 5 mg DAILY PO Last administered on 04/16/17 09:09; Admin Dose 5 MG; Start 04/15/17 at 09:00 Tamsulosin HCl (Flomax) 0.4 mg BID PO Last administered on 04/16/17 09:10; Admin Dose 0.4 MG; Start 04/14/17 at 21:00 Atorvastatin Calcium (Lipitor) 20 mg HS PO Last administered on 04/15/17 21:41 ; Admin Dose 20 MG; Start 04/14/17 at 21:00 Oxycodone/ Acetaminophen (Percocet (5/ 325)) 1 tab Q4H PRN PO MILD PAIN (1-3); Start 04/14/17 at 20:30 Oxycodone/ Acetaminophen (Percocet (5/ 325)) 2 tab Q4H PRN PO MODERATE PAIN (4- 6); Start 04/14/17 at 20:30 Ondansetron HCl 4 mg 4 mg Q6H PRN IV NAUSEA Last administered on 04/16/17 12: 31; Admin Dose 4 MG; Start 04/14/17 at 20:30 Sodium Chloride 1,000 ml @ 100 mls/hr Q10H IV Last administered on 04/16/17 09:12; Admin Dose 100 MLS/HR; Start 04/15/17 at 13:00 Ertapenem/Sodium Chloride (Invanz/NS) 100 ml @ 200 mls/hr Q24H IVPB Last administered on 04/16/17 15:11; Admin Dose 200 MLS/HR; Start 04/16/17 at 14:00 CIPRIANO BECKER MD Apr 16, 2017 18:40
[2017-04-16] MEDS: ATORVASTATIN 20 MG TAB PO SCH (21:26)
[2017-04-17] VITALS (10 sets, daily range): BP systolic 130–145; BP diastolic 76–86; PULSE 76–83; RESP 16–21
--- NOTE | 2017-04-17 07:47 | PN ---
Date/Time of Note Date/Time of Note DATE: 04/17/17 TIME: 07:46 Assessment/Plan Lines/Catheters IV Catheter Type (from Nrs): Peripheral IV Valladares in Place (from Nrs): Yes Assessment/Plan Chief Complaint/Hosp Course The patient is a 56-year-old gentleman who presents with a 5 day history of increasing perirectal pain. He was seen in the emergency room yesterday, where he was treated and released. He returns today worsening pain. CT is compatible with a perianal abscess. The patient reportedly has had fevers and chills. His comorbid conditions consist of COPD, BPH, hypertension and history of thyroidectomy for thyroid carcinoma. Problems: Assessment/Plan Rectal pain completely resolved Incision and drainage site is clean and healing nicely As there are no further surgical recommendations will sign off and see again prn Patient will need office follow-up with me 1 week after discharge Subjective 24 Hr Interval Summary Postoperative day #3 Events noted Exam/Review of Systems Vital Signs Vitals Vital Signs Date Time Temp Pulse Resp B/P Pulse Ox O2 Delivery O2 Flow Rate FiO2 04/17/17 04:00 76 04/17/17 04:00 98.9 20 130/79 94 04/16/17 08:00 Nasal Cannula 2.0 Intake and Output 04/16/17 04/16/17 04/17/17 15:00 23:00 07:00 Intake Total 1300 ml 500 ml Output Total 1600 ml Balance 1300 ml -1100 ml Results Result Diagram: 04/16/17 0540 04/16/17 0540 MAXX WINSLOW MD Apr 17, 2017 07:47
[2017-04-17 07:56] LABS: BASOPHIL # 0.1 10^3/ul (0.0-0.1); BASOPHILS % 0.5 % (0.0-2.0); EOSINOPHILS # 0.2 10^3/ul (0.0-0.5); EOSINOPHILS % 1.7 % (0.0-7.0); HEMATOCRIT 32.4 % (42.0-52.0); HEMOGLOBIN 10.2 g/dl (14.0-18.0); LYMPHOCYTES # 1.6 10^3/ul (0.8-2.9); LYMPHOCYTES % 13.4 % (15.0-51.0); MEAN CORPUSCULAR HEMOGLOBIN 27.6 pg (29.0-33.0); MEAN CORPUSCULAR HGB CONC 31.5 g/dl (32.0-37.0); MEAN CORPUSCULAR VOLUME 87.8 fl (82.0-101.0); MEAN PLATELET VOLUME 9.4 fl (7.4-10.4); MONOCYTE # 1.4 10^3/ul (0.3-0.9); MONOCYTES % 12.2 % (0.0-11.0); NEUTROPHIL # 8.3 10^3/ul (1.6-7.5); NEUTROPHILS % 71.4 % (39.0-77.0); PLATELET COUNT 363 10^3/UL (140-415); RED BLOOD COUNT 3.69 10^6/ul (4.70-6.10); RED CELL DISTRIBUTION WIDTH 12.5 % (11.5-14.5); WHITE BLOOD COUNT 11.6 10^3/ul (4.8-10.8)
[2017-04-17] MEDS: LEVOTHYROXINE 175 MCG TAB PO SCH (08:14)
[2017-04-17] MEDS: SOD CHLORIDE 0.9% 1,000 ML IV SCH (08:16)
[2017-04-17 08:17] LABS: URIC ACID 5.6 mg/dl (3.1-7.9)
[2017-04-17] MEDS: FINASTERIDE 5 MG TAB PO SCH (09:16)
[2017-04-17] MEDS: ASPIRIN (EC) 81 MG TAB PO SCH (09:16)
[2017-04-17] MEDS: TAMSULOSIN (SR) 0.4 MG CAP PO SCH ×2 (09:16→20:58)
[2017-04-17 09:59] LABS: CALCIUM 8.4 mg/dl (8.4-10.2); CREATININE 3.76 mg/dl (0.61-1.24); POTASSIUM 4.4 mmol/L (3.5-5.1)
--- NOTE | 2017-04-17 10:40 | CONS ---
Date/Time of Note Date/Time of Note DATE: 04/17/17 TIME: 10:38 Assessment/Plan Assessment/Plan Additional Assessment/Plan 1. The patient had supraventricular tachycardia (SVT) not documented in the chart. We will try to obtain records if possible. We will add a small dose of beta torin now given the mild elevated troponin. NO CP now - no new episodes. 2. Mild elevated troponins in the setting of supraventricular tachycardia (SVT ). The patient had a procedure recently. The patient tolerated well. We will recommend medical management for now. We will obtain a 2D EKG. Tushar review ECHO. 3. Hypothyroidism. His TSH is low at 0.015. Defer to primary team for evaluation. 4. Perirectal abscess. Continue patient on antibiotics. BETTER overall. Consultation Date/Type/Reason Admit Date/Time Apr 13, 2017 at 23:28 Initial Consult Date 04/15/17 Type of Consultation: [facility] Referring Provider: GUERO HEDRICK MD 24 HR Interval Summary Free Text/Dictation NO new SVT episodes - will monitor for now. ROS: No fever, no chills, no nausea, no vomiting, no diarrhea/constipation No recent weight changes No chest pain, no PND, no orthopnea No dizziness, blurred vision No thirst, no heat or cold intolerance Exam/Review of Systems Vital Signs Vitals Vital Signs Date Time Temp Pulse Resp B/P Pulse Ox O2 Delivery O2 Flow Rate FiO2 04/17/17 08:00 83 04/17/17 08:00 98.9 18 140/81 92 04/16/17 08:00 Nasal Cannula 2.0 Intake and Output 04/16/17 04/16/17 04/17/17 15:00 23:00 07:00 Intake Total 1300 ml 500 ml Output Total 1600 ml Balance 1300 ml -1100 ml Exam General: WN/WD/NAD, AOx 3 HEENT: Unicetric/atraumatic/EOMI ( follow commands) NECK: JVD elevated, no thyromegaly Lymph: no lymphadenopathy HEART: regular with no S3, II/ systolic murmur at apex LUNGS: Coarse sounds ABD: soft, NT, ND, +BS : Intact, LUCERO Neuro: non focal SKIN: chronic changes EXT: trace edema Results Result Diagram: 04/17/1748 04/17/17 0648 Results 24 hrs Laboratory Tests Test 04/17/17 06:48 White Blood Count 11.6 H Red Blood Count 3.69 L Hemoglobin 10.2 L Hematocrit 32.4 L Mean Corpuscular Volume 87.8 Mean Corpuscular Hemoglobin 27.6 L Mean Corpuscular Hemoglobin Concent 31.5 L Red Cell Distribution Width 12.5 Platelet Count 363 # Mean Platelet Volume 9.4 Neutrophils % 71.4 Lymphocytes % 13.4 L Monocytes % 12.2 H Eosinophils % 1.7 Basophils % 0.5 Nucleated Red Blood Cells % 0.0 Neutrophils # 8.3 H Lymphocytes # 1.6 Monocytes # 1.4 H Eosinophils # 0.2 Basophils # 0.1 Nucleated Red Blood Cells # 0.0 Sodium Level 145 H Potassium Level 4.4 Chloride Level 113 H Carbon Dioxide Level 23 Anion Gap 13 Blood Urea Nitrogen 28 H Creatinine 3.76 H Glucose Level 91 Uric Acid 5.6 Calcium Level 8.4 Creatine Kinase 50 Medications Medications Current Medications Acetaminophen (Tylenol Tab) 650 mg Q6H PRN PO PAIN AND OR ELEVATED TEMP Last administered on 04/15/17 00:53; Admin Dose 650 MG; Start 04/14/17 at 02:00 Acetaminophen/ Hydrocodone Bitart ([place] (5/325)) 1 tab Q4H PRN PO PAIN; Start 04/14/17 at 02:00 Morphine Sulfate (morphine) 4 mg Q4H PRN IV PAIN Last administered on 20:45; Admin Dose 4 MG; Start 04/14/17 at 02:00 Aspirin (Halfprin) 81 mg DAILY PO Last administered on 04/17/17 09:16; Admin Dose 81 MG; Start 04/15/17 at 09:00 Finasteride (Proscar) 5 mg DAILY PO Last administered on 04/17/17 09:16; Admin Dose 5 MG; Start 04/15/17 at 09:00 Tamsulosin HCl (Flomax) 0.4 mg BID PO Last administered on 04/17/17 09:16; Admin Dose 0.4 MG; Start 04/14/17 at 21:00 Atorvastatin Calcium (Lipitor) 20 mg HS PO Last administered on 04/16/17 21:26 ; Admin Dose 20 MG; Start 04/14/17 at 21:00 Oxycodone/ Acetaminophen (Percocet (5/ 325)) 1 tab Q4H PRN PO MILD PAIN (1-3); Start 04/14/17 at 20:30 Oxycodone/ Acetaminophen (Percocet (5/ 325)) 2 tab Q4H PRN PO MODERATE PAIN (4- 6); Start 04/14/17 at 20:30 Ondansetron HCl 4 mg 4 mg Q6H PRN IV NAUSEA Last administered on 04/16/17 12: 31; Admin Dose 4 MG; Start 04/14/17 at 20:30 Sodium Chloride 1,000 ml @ 100 mls/hr Q10H IV Last administered on 04/17/17 08:16; Admin Dose 100 MLS/HR; Start 04/15/17 at 13:00 Ertapenem/Sodium Chloride (Invanz/NS) 100 ml @ 200 mls/hr Q24H IVPB Last administered on 04/16/17 15:11; Admin Dose 200 MLS/HR; Start 04/16/17 at 14:00 MAR BEAN MD Apr 17, 2017 10:40
[2017-04-17 10:54] LABS: PROTEIN/CREAT RATIO 0.3 RATIO
--- NOTE | 2017-04-17 11:33 | CONS ---
Date/Time of Note Date/Time of Note DATE: 04/17/17 TIME: 11:32 Consult Date/Type/Reason Admit Date/Time Apr 13, 2017 at 23:28 Initial Consult Date 04/15/17 Type of Consultation: Pulmonary Ordering Provider: GUERO HEDRICK MD Subjective Patient comfortable this morning no new events. Wants to go home. Objective Vital Signs Date Time Temp Pulse Resp B/P Pulse Ox O2 Delivery O2 Flow Rate FiO2 04/17/17 08:00 83 04/17/17 08:00 98.9 18 140/81 92 04/16/17 08:00 Nasal Cannula 2.0 Intake and Output 04/16/17 04/16/17 04/17/17 15:00 23:00 07:00 Intake Total 1300 ml 500 ml Output Total 1600 ml Balance 1300 ml -1100 ml Exam GENERAL: VITAL SIGNS: per chart NECK: Supple. No JVD or lymphadenopathy. CARDIAC EXAM: S1, S2. No added sounds or murmurs. CHEST: clear bilaterally, No added sounds, rales or wheezes ABDOMEN: Soft, nontender. No guarding or rebound. EXTREMITIES: No cyanosis, clubbing or edema. NEUROLOGIC: Generalized weakness. No focal deficits. Results/Medications Result Diagram: 04/17/17 0648 04/17/17 0648 Results 24 hrs Laboratory Tests Test 04/17/17 06:48 04/17/17 09:40 White Blood Count 11.6 H Red Blood Count 3.69 L Hemoglobin 10.2 L Hematocrit 32.4 L Mean Corpuscular Volume 87.8 Mean Corpuscular Hemoglobin 27.6 L Mean Corpuscular Hemoglobin Concent 31.5 L Red Cell Distribution Width 12.5 Platelet Count 363 # Mean Platelet Volume 9.4 Neutrophils % 71.4 Lymphocytes % 13.4 L Monocytes % 12.2 H Eosinophils % 1.7 Basophils % 0.5 Nucleated Red Blood Cells % 0.0 Neutrophils # 8.3 H Lymphocytes # 1.6 Monocytes # 1.4 H Eosinophils # 0.2 Basophils # 0.1 Nucleated Red Blood Cells # 0.0 Sodium Level 145 H Potassium Level 4.4 Chloride Level 113 H Carbon Dioxide Level 23 Anion Gap 13 Blood Urea Nitrogen 28 H Creatinine 3.76 H Glucose Level 91 Uric Acid 5.6 Calcium Level 8.4 Creatine Kinase 50 Urine Random Creatinine 72.36 Urine Random Sodium 102 H Urine Protein/Creatinine Ratio 0.30 Urine Total Protein 22.0 H Medications Current Medications Acetaminophen (Tylenol Tab) 650 mg Q6H PRN PO PAIN AND OR ELEVATED TEMP Last administered on 04/15/17 00:53; Admin Dose 650 MG; Start 04/14/17 at 02:00 Acetaminophen/ Hydrocodone Bitart ([place] (5/325)) 1 tab Q4H PRN PO PAIN; Start 04/14/17 at 02:00 Morphine Sulfate (morphine) 4 mg Q4H PRN IV PAIN Last administered on 20:45; Admin Dose 4 MG; Start 04/14/17 at 02:00 Aspirin (Halfprin) 81 mg DAILY PO Last administered on 04/17/17 09:16; Admin Dose 81 MG; Start 04/15/17 at 09:00 Finasteride (Proscar) 5 mg DAILY PO Last administered on 04/17/17 09:16; Admin Dose 5 MG; Start 04/15/17 at 09:00 Tamsulosin HCl (Flomax) 0.4 mg BID PO Last administered on 04/17/17 09:16; Admin Dose 0.4 MG; Start 04/14/17 at 21:00 Atorvastatin Calcium (Lipitor) 20 mg HS PO Last administered on 04/16/17 21:26 ; Admin Dose 20 MG; Start 04/14/17 at 21:00 Oxycodone/ Acetaminophen (Percocet (5/ 325)) 1 tab Q4H PRN PO MILD PAIN (1-3); Start 04/14/17 at 20:30 Oxycodone/ Acetaminophen (Percocet (5/ 325)) 2 tab Q4H PRN PO MODERATE PAIN (4- 6); Start 04/14/17 at 20:30 Ondansetron HCl 4 mg 4 mg Q6H PRN IV NAUSEA Last administered on 04/16/17 12: 31; Admin Dose 4 MG; Start 04/14/17 at 20:30 Ertapenem 1 gm/ Sodium Chloride 100 ml @ 200 mls/hr Q24H IVPB Last administered on 04/16/17 15:11; Admin Dose 200 MLS/HR; Start 04/16/17 at 14:00 Sodium Chloride (1/2 NS) 1,000 ml @ 75 mls/hr [id number] IV ; Start 04/17/17 at 11 :30; Stop 04/18/17 at 14:09 Assessment/Plan Chief Complaint/Hosp Course Assessment 1. Solitary pulmonary nodule right lower lobe appears chronic in nature 2. Chronic renal insufficiency 3. Rectal abscess status post I&D Recommendations Repeat CT scan in 6 months time. No further workup needed at this point. discussed with family at length at bedside. Problems: MICHELLE HANNA MD, [facility] Apr 17, 2017 11:33
[2017-04-17] MEDS: SOD CHLORIDE 0.45% 1,000 ML IV SCH (11:55)
--- NOTE | 2017-04-17 12:55 | CONS ---
Date/Time of Note Date/Time of Note DATE: 04/17/17 TIME: 12:52 Assessment/Plan Assessment/Plan Chief Complaint/Hosp Course Alert, feels good, wants to go home, family at bedside Microbiology: Wound cultures negative BUN 28 creatinine 3.76 WBC 11.6 platelets 363 neutrophils 71.4 Antimicrobials: Invanz Physical examination: Well-developed well-nourished middle-aged man who is in no distress. Head atraumatic normocephalic sclerae nonicteric neck is supple chest rise symmetrical breath sounds clear. Heart S1-S2 abdomen soft bowel sounds present extremities without cyanosis Assessment: 1. Status post perianal abscess drainage 2. Acute kidney injury 3. NSTEMI, status post arrhythmia 4. BPH 5. Lung nodule==> chronic per pulmonary Plan: Patient remains stable. Continue abx, follow recommendations of consultants, anticipate discharge home of antibiotics Problems: Consultation Date/Type/Reason Admit Date/Time Apr 13, 2017 at 23:28 Initial Consult Date 04/15/17 Type of Consultation: id Referring Provider: GUERO HEDRICK MD Exam/Review of Systems Vital Signs Vitals Vital Signs Date Time Temp Pulse Resp B/P Pulse Ox O2 Delivery O2 Flow Rate FiO2 04/17/17 12:04 97.4 79 16 145/86 95 04/16/17 08:00 Nasal Cannula 2.0 Intake and Output 04/16/17 04/16/17 04/17/17 15:00 23:00 07:00 Intake Total 1300 ml 500 ml Output Total 1600 ml Balance 1300 ml -1100 ml Results Result Diagram: 04/17/17 0648 04/17/17 0648 Results 24 hrs Laboratory Tests Test 04/17/17 06:48 04/17/17 09:40 White Blood Count 11.6 H Red Blood Count 3.69 L Hemoglobin 10.2 L Hematocrit 32.4 L Mean Corpuscular Volume 87.8 Mean Corpuscular Hemoglobin 27.6 L Mean Corpuscular Hemoglobin Concent 31.5 L Red Cell Distribution Width 12.5 Platelet Count 363 # Mean Platelet Volume 9.4 Neutrophils % 71.4 Lymphocytes % 13.4 L Monocytes % 12.2 H Eosinophils % 1.7 Basophils % 0.5 Nucleated Red Blood Cells % 0.0 Neutrophils # 8.3 H Lymphocytes # 1.6 Monocytes # 1.4 H Eosinophils # 0.2 Basophils # 0.1 Nucleated Red Blood Cells # 0.0 Sodium Level 145 H Potassium Level 4.4 Chloride Level 113 H Carbon Dioxide Level 23 Anion Gap 13 Blood Urea Nitrogen 28 H Creatinine 3.76 H Glucose Level 91 Uric Acid 5.6 Calcium Level 8.4 Creatine Kinase 50 Urine Random Creatinine 72.36 Urine Random Sodium 102 H Urine Protein/Creatinine Ratio 0.30 Urine Total Protein 22.0 H Medications Medications Current Medications Acetaminophen (Tylenol Tab) 650 mg Q6H PRN PO PAIN AND OR ELEVATED TEMP Last administered on 04/15/17 00:53; Admin Dose 650 MG; Start 04/14/17 at 02:00 Acetaminophen/ Hydrocodone Bitart ([place] (5/325)) 1 tab Q4H PRN PO PAIN; Start 04/14/17 at 02:00 Morphine Sulfate (morphine) 4 mg Q4H PRN IV PAIN Last administered on 20:45; Admin Dose 4 MG; Start 04/14/17 at 02:00 Aspirin (Halfprin) 81 mg DAILY PO Last administered on 04/17/17 09:16; Admin Dose 81 MG; Start 04/15/17 at 09:00 Finasteride (Proscar) 5 mg DAILY PO Last administered on 04/17/17 09:16; Admin Dose 5 MG; Start 04/15/17 at 09:00 Tamsulosin HCl (Flomax) 0.4 mg BID PO Last administered on 04/17/17 09:16; Admin Dose 0.4 MG; Start 04/14/17 at 21:00 Atorvastatin Calcium (Lipitor) 20 mg HS PO Last administered on 04/16/17 21:26 ; Admin Dose 20 MG; Start 04/14/17 at 21:00 Oxycodone/ Acetaminophen (Percocet (5/ 325)) 1 tab Q4H PRN PO MILD PAIN (1-3); Start 04/14/17 at 20:30 Oxycodone/ Acetaminophen (Percocet (5/ 325)) 2 tab Q4H PRN PO MODERATE PAIN (4- 6); Start 04/14/17 at 20:30 Ondansetron HCl 4 mg 4 mg Q6H PRN IV NAUSEA Last administered on 04/16/17 12: 31; Admin Dose 4 MG; Start 04/14/17 at 20:30 Ertapenem 1 gm/ Sodium Chloride 100 ml @ 200 mls/hr Q24H IVPB Last administered on 04/16/17 15:11; Admin Dose 200 MLS/HR; Start 04/16/17 at 14:00 Sodium Chloride (1/2 NS) 1,000 ml @ 75 mls/hr [id number] IV Last administered on 04/17/17 11:55; Admin Dose 75 MLS/HR; Start 04/17/17 at 11:30; Stop 04/18/17 at 14:09 JANIA NOLAN NP Apr 17, 2017 12:55
--- NOTE | 2017-04-17 12:59 | PN ---
Date/Time of Note Date/Time of Note DATE: 04/17/17 TIME: 12:59 Assessment/Plan VTE Prophylaxis VTE Prophylaxis Intervention: SCD's Lines/Catheters IV Catheter Type (from [facility]): Peripheral IV Central line still needed: Yes Urinary Cath still in place: Yes Reason Cath still needed: urinary retention Assessment/Plan Assessment/Plan - ALIX, continue IV fluids, - per Dr Morris in nephrology consultation. - Elevated troponin in the setting of supraventricular tachycardia (SVT). - Dr Chavira is following in cardiology consultation. - Rectal abscess. S/p I& D by Dr Dawson, general surgery on 04/14. - Systemic inflammatory response syndrome with fevers and leukocytosis secondary to rectal abscess. Continue intravenous fluids and antibiotics. - per surgery per Dr. Salmeron in Infectious Disease consultation. - A 1 cm pleural-based soft tissue nodule in the right lower lung lobe. - per Dr. Monte in Pulmonology consultation. - Benign prostatic hypertrophy. - Hypertension. - Dyslipidemia. Further recommendations based on clinical course. Plan of care discussed with Dr. Ponce. Subjective 24 Hr Interval Summary Free Text/Dictation feels better, denies any complaint, Cr elevated 3.7IVF cont. . wants to go home. no events reported overnight. dw staff. Constitutional: improved, requiring IVF Respiratory: no complaints Cardiovascular: no complaints Gastrointestinal: no complaints Genitourinary: no complaints Musculoskeletal: no complaints Exam/Review of Systems Vital Signs Vitals Vital Signs Date Time Temp Pulse Resp B/P Pulse Ox O2 Delivery O2 Flow Rate FiO2 04/17/17 12:04 97.4 79 16 145/86 95 04/16/17 08:00 Nasal Cannula 2.0 Intake and Output 04/16/17 04/16/17 04/17/17 15:00 23:00 07:00 Intake Total 1300 ml 500 ml Output Total 1600 ml Balance 1300 ml -1100 ml Exam Constitutional: alert, oriented, well developed Respiratory: diminished breath sounds Cardiovascular: nl pulses Gastrointestinal: non-tender, soft Musculoskeletal: nl extremities to inspection Extremities: normal pulses Neurological: nl mental status, nl speech Results Result Diagram: 04/17/17 0648 04/17/17 0648 Results 24 hrs Laboratory Tests Test 04/17/17 06:48 04/17/17 09:40 White Blood Count 11.6 H Red Blood Count 3.69 L Hemoglobin 10.2 L Hematocrit 32.4 L Mean Corpuscular Volume 87.8 Mean Corpuscular Hemoglobin 27.6 L Mean Corpuscular Hemoglobin Concent 31.5 L Red Cell Distribution Width 12.5 Platelet Count 363 # Mean Platelet Volume 9.4 Neutrophils % 71.4 Lymphocytes % 13.4 L Monocytes % 12.2 H Eosinophils % 1.7 Basophils % 0.5 Nucleated Red Blood Cells % 0.0 Neutrophils # 8.3 H Lymphocytes # 1.6 Monocytes # 1.4 H Eosinophils # 0.2 Basophils # 0.1 Nucleated Red Blood Cells # 0.0 Sodium Level 145 H Potassium Level 4.4 Chloride Level 113 H Carbon Dioxide Level 23 Anion Gap 13 Blood Urea Nitrogen 28 H Creatinine 3.76 H Glucose Level 91 Uric Acid 5.6 Calcium Level 8.4 Creatine Kinase 50 Urine Random Creatinine 72.36 Urine Random Sodium 102 H Urine Protein/Creatinine Ratio 0.30 Urine Total Protein 22.0 H Medications Medications Current Medications Acetaminophen (Tylenol Tab) 650 mg Q6H PRN PO PAIN AND OR ELEVATED TEMP Last administered on 04/15/17 00:53; Admin Dose 650 MG; Start 04/14/17 at 02:00 Acetaminophen/ Hydrocodone Bitart ([place] (5/325)) 1 tab Q4H PRN PO PAIN; Start 04/14/17 at 02:00 Morphine Sulfate (morphine) 4 mg Q4H PRN IV PAIN Last administered on 20:45; Admin Dose 4 MG; Start 04/14/17 at 02:00 Aspirin (Halfprin) 81 mg DAILY PO Last administered on 04/17/17 09:16; Admin Dose 81 MG; Start 04/15/17 at 09:00 Finasteride (Proscar) 5 mg DAILY PO Last administered on 04/17/17 09:16; Admin Dose 5 MG; Start 04/15/17 at 09:00 Tamsulosin HCl (Flomax) 0.4 mg BID PO Last administered on 04/17/17 09:16; Admin Dose 0.4 MG; Start 04/14/17 at 21:00 Atorvastatin Calcium (Lipitor) 20 mg HS PO Last administered on 04/16/17 21:26 ; Admin Dose 20 MG; Start 04/14/17 at 21:00 Oxycodone/ Acetaminophen (Percocet (5/ 325)) 1 tab Q4H PRN PO MILD PAIN (1-3); Start 04/14/17 at 20:30 Oxycodone/ Acetaminophen (Percocet (5/ 325)) 2 tab Q4H PRN PO MODERATE PAIN (4- 6); Start 04/14/17 at 20:30 Ondansetron HCl 4 mg 4 mg Q6H PRN IV NAUSEA Last administered on 04/16/17 12: 31; Admin Dose 4 MG; Start 04/14/17 at 20:30 Ertapenem 1 gm/ Sodium Chloride 100 ml @ 200 mls/hr Q24H IVPB Last administered on 04/16/17 15:11; Admin Dose 200 MLS/HR; Start 04/16/17 at 14:00 Sodium Chloride (1/2 NS) 1,000 ml @ 75 mls/hr [id number] IV Last administered on 04/17/17 11:55; Admin Dose 75 MLS/HR; Start 04/17/17 at 11:30; Stop 04/18/17 at 14:09 JONES HINTON Apr 17, 2017 12:59
[2017-04-17] MEDS: ERTAPENEM SODIUM 1 GM in SOD CHLORIDE 0.9% 100 ML IVPB SCH (13:23)
[2017-04-17] MEDS ORDERED: ERTAPENEM SODIUM 0.5 GM in SOD CHLORIDE 0.9% 100 ML IVPB SCH (14:00)
--- NOTE | 2017-04-17 17:14 | RADRPT ---
PROCEDURE: Renal US. CLINICAL INDICATION: Acute kidney injury. TECHNIQUE: Multiple sonographic images of the kidneys and urinary bladder were obtained. The imag es were reviewed on a PACS workstation. COMPARISON: No prior studies are available for comparison. FINDINGS: The right kidney measures 11.6 cm. The left kidney measures 11.8 cm. There is no renal mass. There is no hydronephrosis. There is no renal calculus. Renal parenchymal thickness is normal bilaterally. Echogenicity is normal bilaterally. The perirenal regions are normal with no fluid collection or mass. There is a Valladares catheter in the urinary bladder. IMPRESSION: 1. Normal kidneys with no hydronephrosis. 2. Valladares catheter in the bladder. 3. Otherwise unremarkable renal ultrasound. RPTAT: QQ .Juan Lucero MD, Date Time Electronically viewed and signed by .Juan Lucero MD, on 04/17/2017 17:14 .R/
[2017-04-17] MEDS: ONDANSETRON 4 MG INJ IV PRN (18:28)
--- NOTE | 2017-04-17 19:12 | CONS ---
Date/Time of Note Date/Time of Note DATE: 04/17/17 TIME: 19:11 Assessment/Plan Assessment/Plan Chief Complaint/Hosp Course Chief Complaint/Hosp Course LEUKOCYTOSIS REACTIVE MONITOR CLOSELY Lung nodule- chronic per pulmonary 1.1 cm pleural based soft nodule is identified in the medial aspect of the right lower lobe. RESCAN IN 3 [place] Thyroid cancer, status post thyroidectomy 2000. THYROGLOBULIN- P Status post perianal abscess drainage Acute kidney injury NSTEMI, status post arrhythmia BPH Problems: Consultation Date/Type/Reason Admit Date/Time Apr 13, 2017 at 23:28 Initial Consult Date 04/15/17 Type of Consultation: hemeon Referring Provider: GUERO HEDRICK MD 24 HR Interval Summary Free Text/Dictation all noted Exam/Review of Systems Vital Signs Vitals Vital Signs Date Time Temp Pulse Resp B/P Pulse Ox O2 Delivery O2 Flow Rate FiO2 04/17/17 16:00 81 04/17/17 15:59 98.7 16 130/76 94 04/16/17 08:00 Nasal Cannula 2.0 Intake and Output 04/16/17 04/16/17 04/17/17 15:00 23:00 07:00 Intake Total 1300 ml 500 ml Output Total 1600 ml Balance 1300 ml -1100 ml Exam GENERAL: Patient is a well-developed, well-nourished male, who is alert, responsive, in no acute distress. SKIN: Without generalized rash. HEENT: Within normal limits. NECK: Supple. Lymph nodes nonpalpable. CHEST: Decreased breath sounds at the bases. HEART: Without murmur or gallop. ABDOMEN: Soft, nontender. Nondistended, but protuberant. There is no organo-splenomegaly or masses. EXTREMITIES: Without cyanosis, clubbing, or edema. RECTAL: Deferred. GENITAL: Deferred. NEUROLOGICAL: No focal neurological abnormalities. Results Result Diagram: 04/17/17 0648 04/17/17 0648 Results 24 hrs Laboratory Tests Test 04/17/17 06:48 04/17/17 09:40 White Blood Count 11.6 H Red Blood Count 3.69 L Hemoglobin 10.2 L Hematocrit 32.4 L Mean Corpuscular Volume 87.8 Mean Corpuscular Hemoglobin 27.6 L Mean Corpuscular Hemoglobin Concent 31.5 L Red Cell Distribution Width 12.5 Platelet Count 363 # Mean Platelet Volume 9.4 Neutrophils % 71.4 Lymphocytes % 13.4 L Monocytes % 12.2 H Eosinophils % 1.7 Basophils % 0.5 Nucleated Red Blood Cells % 0.0 Neutrophils # 8.3 H Lymphocytes # 1.6 Monocytes # 1.4 H Eosinophils # 0.2 Basophils # 0.1 Nucleated Red Blood Cells # 0.0 Sodium Level 145 H Potassium Level 4.4 Chloride Level 113 H Carbon Dioxide Level 23 Anion Gap 13 Blood Urea Nitrogen 28 H Creatinine 3.76 H Glucose Level 91 Uric Acid 5.6 Calcium Level 8.4 Creatine Kinase 50 Urine Eosinophils % 0.0 Urine Random Creatinine 72.36 Urine Random Sodium 102 H Urine Protein/Creatinine Ratio 0.30 Urine Total Protein 22.0 H Medications Medications Current Medications Acetaminophen (Tylenol Tab) 650 mg Q6H PRN PO PAIN AND OR ELEVATED TEMP Last administered on 04/15/17 00:53; Admin Dose 650 MG; Start 04/14/17 at 02:00 Acetaminophen/ Hydrocodone Bitart ([place] (5/325)) 1 tab Q4H PRN PO PAIN; Start 04/14/17 at 02:00 Morphine Sulfate (morphine) 4 mg Q4H PRN IV PAIN Last administered on 20:45; Admin Dose 4 MG; Start 04/14/17 at 02:00 Aspirin (Halfprin) 81 mg DAILY PO Last administered on 04/17/17 09:16; Admin Dose 81 MG; Start 04/15/17 at 09:00 Finasteride (Proscar) 5 mg DAILY PO Last administered on 04/17/17 09:16; Admin Dose 5 MG; Start 04/15/17 at 09:00 Tamsulosin HCl (Flomax) 0.4 mg BID PO Last administered on 04/17/17 09:16; Admin Dose 0.4 MG; Start 04/14/17 at 21:00 Atorvastatin Calcium (Lipitor) 20 mg HS PO Last administered on 04/16/17 21:26 ; Admin Dose 20 MG; Start 04/14/17 at 21:00 Oxycodone/ Acetaminophen (Percocet (5/ 325)) 1 tab Q4H PRN PO MILD PAIN (1-3); Start 04/14/17 at 20:30 Oxycodone/ Acetaminophen (Percocet (5/ 325)) 2 tab Q4H PRN PO MODERATE PAIN (4- 6); Start 04/14/17 at 20:30 Ondansetron HCl 4 mg 4 mg Q6H PRN IV NAUSEA Last administered on 04/17/17 18: 28; Admin Dose 4 MG; Start 04/14/17 at 20:30 Ertapenem 1 gm/ Sodium Chloride 100 ml @ 200 mls/hr Q24H IVPB Last administered on 04/17/17 13:23; Admin Dose 200 MLS/HR; Start 04/16/17 at 14:00 ; Stop 04/17/17 at 23:59 Sodium Chloride 1,000 ml @ 75 mls/hr [id number] IV Last administered on 11:55; Admin Dose 75 MLS/HR; Start 04/17/17 at 11:30; Stop 04/18/17 at 14: 09 Ertapenem/Sodium Chloride (Invanz/NS) 100 ml @ 200 mls/hr Q24H IVPB ; Start at 14:00 CIPRIANO BECKER MD Apr 17, 2017 19:12
--- NOTE | 2017-04-17 19:16 | CONS ---
Date/Time of Note Date/Time of Note DATE: 04/17/17 TIME: 19:16 Assessment/Plan Assessment/Plan Chief Complaint/Hosp Course Chief Complaint/Hosp Course LEUKOCYTOSIS REACTIVE MONITOR CLOSELY Lung nodule- chronic per pulmonary 1.1 cm pleural based soft nodule is identified in the medial aspect of the right lower lobe. RESCAN IN 3 [place] Thyroid cancer, status post thyroidectomy 2000. THYROGLOBULIN- P Status post perianal abscess drainage Acute kidney injury NSTEMI, status post arrhythmia BPH Problems: Consultation Date/Type/Reason Admit Date/Time Apr 13, 2017 at 23:28 Initial Consult Date 04/15/17 Type of Consultation: hemeon Referring Provider: GUERO HEDRICK MD 24 HR Interval Summary Free Text/Dictation all noted NAD Exam/Review of Systems Vital Signs Vitals Vital Signs Date Time Temp Pulse Resp B/P Pulse Ox O2 Delivery O2 Flow Rate FiO2 04/17/17 16:00 81 04/17/17 15:59 98.7 16 130/76 94 04/16/17 08:00 Nasal Cannula 2.0 Intake and Output 04/16/17 04/16/17 04/17/17 15:00 23:00 07:00 Intake Total 1300 ml 500 ml Output Total 1600 ml Balance 1300 ml -1100 ml Exam GENERAL: Patient is a well-developed, well-nourished male, who is alert, responsive, in no acute distress. SKIN: Without generalized rash. HEENT: Within normal limits. NECK: Supple. Lymph nodes nonpalpable. CHEST: Decreased breath sounds at the bases. HEART: Without murmur or gallop. ABDOMEN: Soft, nontender. Nondistended, but protuberant. There is no organo-splenomegaly or masses. EXTREMITIES: Without cyanosis, clubbing, or edema. RECTAL: Deferred. GENITAL: Deferred. NEUROLOGICAL: No focal neurological abnormalities. Results Result Diagram: 04/17/17 0648 04/17/17 0648 Results 24 hrs Laboratory Tests Test 04/17/17 06:48 04/17/17 09:40 White Blood Count 11.6 H Red Blood Count 3.69 L Hemoglobin 10.2 L Hematocrit 32.4 L Mean Corpuscular Volume 87.8 Mean Corpuscular Hemoglobin 27.6 L Mean Corpuscular Hemoglobin Concent 31.5 L Red Cell Distribution Width 12.5 Platelet Count 363 # Mean Platelet Volume 9.4 Neutrophils % 71.4 Lymphocytes % 13.4 L Monocytes % 12.2 H Eosinophils % 1.7 Basophils % 0.5 Nucleated Red Blood Cells % 0.0 Neutrophils # 8.3 H Lymphocytes # 1.6 Monocytes # 1.4 H Eosinophils # 0.2 Basophils # 0.1 Nucleated Red Blood Cells # 0.0 Sodium Level 145 H Potassium Level 4.4 Chloride Level 113 H Carbon Dioxide Level 23 Anion Gap 13 Blood Urea Nitrogen 28 H Creatinine 3.76 H Glucose Level 91 Uric Acid 5.6 Calcium Level 8.4 Creatine Kinase 50 Urine Eosinophils % 0.0 Urine Random Creatinine 72.36 Urine Random Sodium 102 H Urine Protein/Creatinine Ratio 0.30 Urine Total Protein 22.0 H Medications Medications Current Medications Acetaminophen (Tylenol Tab) 650 mg Q6H PRN PO PAIN AND OR ELEVATED TEMP Last administered on 04/15/17 00:53; Admin Dose 650 MG; Start 04/14/17 at 02:00 Acetaminophen/ Hydrocodone Bitart ([place] (5/325)) 1 tab Q4H PRN PO PAIN; Start 04/14/17 at 02:00 Morphine Sulfate (morphine) 4 mg Q4H PRN IV PAIN Last administered on 20:45; Admin Dose 4 MG; Start 04/14/17 at 02:00 Aspirin (Halfprin) 81 mg DAILY PO Last administered on 04/17/17 09:16; Admin Dose 81 MG; Start 04/15/17 at 09:00 Finasteride (Proscar) 5 mg DAILY PO Last administered on 04/17/17 09:16; Admin Dose 5 MG; Start 04/15/17 at 09:00 Tamsulosin HCl (Flomax) 0.4 mg BID PO Last administered on 04/17/17 09:16; Admin Dose 0.4 MG; Start 04/14/17 at 21:00 Atorvastatin Calcium (Lipitor) 20 mg HS PO Last administered on 04/16/17 21:26 ; Admin Dose 20 MG; Start 04/14/17 at 21:00 Oxycodone/ Acetaminophen (Percocet (5/ 325)) 1 tab Q4H PRN PO MILD PAIN (1-3); Start 04/14/17 at 20:30 Oxycodone/ Acetaminophen (Percocet (5/ 325)) 2 tab Q4H PRN PO MODERATE PAIN (4- 6); Start 04/14/17 at 20:30 Ondansetron HCl 4 mg 4 mg Q6H PRN IV NAUSEA Last administered on 04/17/17 18: 28; Admin Dose 4 MG; Start 04/14/17 at 20:30 Ertapenem 1 gm/ Sodium Chloride 100 ml @ 200 mls/hr Q24H IVPB Last administered on 04/17/17 13:23; Admin Dose 200 MLS/HR; Start 04/16/17 at 14:00 ; Stop 04/17/17 at 23:59 Sodium Chloride 1,000 ml @ 75 mls/hr [id number] IV Last administered on 11:55; Admin Dose 75 MLS/HR; Start 04/17/17 at 11:30; Stop 04/18/17 at 14: 09 Ertapenem/Sodium Chloride (Invanz/NS) 100 ml @ 200 mls/hr Q24H IVPB ; Start at 14:00 CIPRIANO BECKER MD Apr 17, 2017 19:16
[2017-04-17] MEDS: ATORVASTATIN 20 MG TAB PO SCH (20:58)
--- NOTE | 2017-04-17 21:21 | CONS ---
Date/Time of Note Date/Time of Note DATE: 04/17/17 TIME: 21:19 Assessment/Plan Assessment/Plan Chief Complaint/Hosp Course 56 M with PMHx of HL, Hypothyroidism, who was admitted with rectal abscess s/p I &D. pt admitted with normal creatinine, he was treated ith IV zosyn initially. his Creatinine bumped to 1.76- then again bumped to 3.95 today. Renal has been consutled for acute kidney injury. pt was seen in AM. He has been switched to ertapenm for iV abx. Problems: Additional Assessment/Plan 1. Acute kidney injury due to ATN + nephrotoxicity 2. SIRS 3. Rectal abscess s/p I & D 4. Hypertension 5. BPH 6. HL Plan : Current pt is on IV ertapenem, continue it Cr improved to 3.76- change IVF to 1/2 NS Urine stuides unremarkable Renal US has unremarkable, echogenicity c/w medical renal disease d/c martinez catheter in AM will follow up Consultation Date/Type/Reason Admit Date/Time Apr 13, 2017 at 23:28 Initial Consult Date 04/14/17 Type of Consultation: NEPHROLOGY Referring Provider: GUERO HEDRICK MD 24 HR Interval Summary Free Text/Dictation Cr improved to 3.76, BP stable, Renal US unremarkable Exam/Review of Systems Vital Signs Vitals Vital Signs Date Time Temp Pulse Resp B/P Pulse Ox O2 Delivery O2 Flow Rate FiO2 04/17/17 20:18 98.5 78 21 130/79 94 04/16/17 08:00 Nasal Cannula 2.0 Intake and Output 04/16/17 04/16/17 04/17/17 15:00 23:00 07:00 Intake Total 1300 ml 500 ml Output Total 1600 ml Balance 1300 ml -1100 ml Exam Constitutional: alert Respiratory: clear to auscultation, normal air movement Cardiovascular: nl pulses, regular rate and rhythm Gastrointestinal: non-tender, soft Musculoskeletal: nl extremities to inspection, nl gait and stance Extremities: normal pulses Neurological: AN/SSN 2 4 OPERATOR II-XII intact, nl mental status, nl speech, nl strength Results Result Diagram: 04/17/17 0648 04/17/17 0648 Results 24 hrs Laboratory Tests Test 04/17/17 06:48 04/17/17 09:40 White Blood Count 11.6 H Red Blood Count 3.69 L Hemoglobin 10.2 L Hematocrit 32.4 L Mean Corpuscular Volume 87.8 Mean Corpuscular Hemoglobin 27.6 L Mean Corpuscular Hemoglobin Concent 31.5 L Red Cell Distribution Width 12.5 Platelet Count 363 # Mean Platelet Volume 9.4 Neutrophils % 71.4 Lymphocytes % 13.4 L Monocytes % 12.2 H Eosinophils % 1.7 Basophils % 0.5 Nucleated Red Blood Cells % 0.0 Neutrophils # 8.3 H Lymphocytes # 1.6 Monocytes # 1.4 H Eosinophils # 0.2 Basophils # 0.1 Nucleated Red Blood Cells # 0.0 Sodium Level 145 H Potassium Level 4.4 Chloride Level 113 H Carbon Dioxide Level 23 Anion Gap 13 Blood Urea Nitrogen 28 H Creatinine 3.76 H Glucose Level 91 Uric Acid 5.6 Calcium Level 8.4 Creatine Kinase 50 Urine Eosinophils % 0.0 Urine Random Creatinine 72.36 Urine Random Sodium 102 H Urine Protein/Creatinine Ratio 0.30 Urine Total Protein 22.0 H Medications Medications Current Medications Acetaminophen (Tylenol Tab) 650 mg Q6H PRN PO PAIN AND OR ELEVATED TEMP Last administered on 04/15/17 00:53; Admin Dose 650 MG; Start 04/14/17 at 02:00 Acetaminophen/ Hydrocodone Bitart ([place] (5/325)) 1 tab Q4H PRN PO PAIN; Start 04/14/17 at 02:00 Morphine Sulfate (morphine) 4 mg Q4H PRN IV PAIN Last administered on 20:45; Admin Dose 4 MG; Start 04/14/17 at 02:00 Aspirin (Halfprin) 81 mg DAILY PO Last administered on 04/17/17 09:16; Admin Dose 81 MG; Start 04/15/17 at 09:00 Finasteride (Proscar) 5 mg DAILY PO Last administered on 04/17/17 09:16; Admin Dose 5 MG; Start 04/15/17 at 09:00 Tamsulosin HCl (Flomax) 0.4 mg BID PO Last administered on 04/17/17 20:58; Admin Dose 0.4 MG; Start 04/14/17 at 21:00 Atorvastatin Calcium (Lipitor) 20 mg HS PO Last administered on 04/17/17 20:58 ; Admin Dose 20 MG; Start 04/14/17 at 21:00 Oxycodone/ Acetaminophen (Percocet (5/ 325)) 1 tab Q4H PRN PO MILD PAIN (1-3); Start 04/14/17 at 20:30 Oxycodone/ Acetaminophen (Percocet (5/ 325)) 2 tab Q4H PRN PO MODERATE PAIN (4- 6); Start 04/14/17 at 20:30 Ondansetron HCl 4 mg 4 mg Q6H PRN IV NAUSEA Last administered on 04/17/17 18: 28; Admin Dose 4 MG; Start 04/14/17 at 20:30 Ertapenem 1 gm/ Sodium Chloride 100 ml @ 200 mls/hr Q24H IVPB Last administered on 04/17/17 13:23; Admin Dose 200 MLS/HR; Start 04/16/17 at 14:00 ; Stop 04/17/17 at 23:59 Sodium Chloride 1,000 ml @ 75 mls/hr [id number] IV Last administered on 11:55; Admin Dose 75 MLS/HR; Start 04/17/17 at 11:30; Stop 04/18/17 at 14: 09 Ertapenem/Sodium Chloride (Invanz/NS) 100 ml @ 200 mls/hr Q24H IVPB ; Start at 14:00 SHARON ELLISON MD Apr 17, 2017 21:21
[2017-04-18] VITALS (13 sets, daily range): BP systolic 142–168; BP diastolic 84–99; PULSE 66–79; RESP 18–20
[2017-04-18] MEDS: SOD CHLORIDE 0.45% 1,000 ML IV SCH ×2 (01:19→15:22)
[2017-04-18 06:16] LABS: BASOPHIL # 0.1 10^3/ul (0.0-0.1); BASOPHILS % 0.5 % (0.0-2.0); EOSINOPHILS # 0.3 10^3/ul (0.0-0.5); EOSINOPHILS % 2.4 % (0.0-7.0); HEMATOCRIT 32.1 % (42.0-52.0); HEMOGLOBIN 10.4 g/dl (14.0-18.0); LYMPHOCYTES # 1.5 10^3/ul (0.8-2.9); LYMPHOCYTES % 13.9 % (15.0-51.0); MEAN CORPUSCULAR HEMOGLOBIN 28.3 pg (29.0-33.0); MEAN CORPUSCULAR HGB CONC 32.4 g/dl (32.0-37.0); MEAN CORPUSCULAR VOLUME 87.5 fl (82.0-101.0); MONOCYTE # 1.1 10^3/ul (0.3-0.9); MONOCYTES % 10.4 % (0.0-11.0); NEUTROPHIL # 7.8 10^3/ul (1.6-7.5); NEUTROPHILS % 71.9 % (39.0-77.0); PLATELET COUNT 359 10^3/UL (140-415); RED BLOOD COUNT 3.67 10^6/ul (4.70-6.10); RED CELL DISTRIBUTION WIDTH 12.3 % (11.5-14.5); WHITE BLOOD COUNT 10.8 10^3/ul (4.8-10.8)
[2017-04-18 06:45] LABS: CALCIUM 8.5 mg/dl (8.4-10.2); CREATININE 3.1 mg/dl (0.61-1.24); POTASSIUM 4.1 mmol/L (3.5-5.1)
[2017-04-18] MEDS: LEVOTHYROXINE 175 MCG TAB PO SCH (08:09)
[2017-04-18] MEDS: TAMSULOSIN (SR) 0.4 MG CAP PO SCH ×2 (08:52→21:14)
[2017-04-18] MEDS: FINASTERIDE 5 MG TAB PO SCH (08:52)
[2017-04-18] MEDS: ASPIRIN (EC) 81 MG TAB PO SCH (08:52)
--- NOTE | 2017-04-18 10:39 | CONS ---
Date/Time of Note Date/Time of Note DATE: 04/18/17 TIME: 10:38 Consult Date/Type/Reason Admit Date/Time Apr 13, 2017 at 23:28 Initial Consult Date 04/15/17 Type of Consultation: Pulmonary Ordering Provider: GUERO HEDRICK MD Subjective Patient stable this morning. Wants to go home. Denies shortness of breath. Objective Vital Signs Date Time Temp Pulse Resp B/P Pulse Ox O2 Delivery O2 Flow Rate FiO2 04/18/17 08:02 70 04/18/17 07:30 98.3 20 146/91 94 04/16/17 08:00 Nasal Cannula 2.0 Intake and Output 04/17/17 04/17/17 04/18/17 14:59 22:59 06:59 Intake Total 500 ml 1250 ml 1630 ml Output Total 2100 ml 1600 ml Balance 500 ml -850 ml 30 ml Exam GENERAL: VITAL SIGNS: per chart NECK: Supple. No JVD or lymphadenopathy. CARDIAC EXAM: S1, S2. No added sounds or murmurs. CHEST: clear bilaterally, No added sounds, rales or wheezes ABDOMEN: Soft, nontender. No guarding or rebound. EXTREMITIES: No cyanosis, clubbing or edema. NEUROLOGIC: Generalized weakness. No focal deficits Results/Medications Result Diagram: 04/18/17 0556 04/18/17 0556 Results 24 hrs Laboratory Tests Test 04/18/17 05:56 White Blood Count 10.8 Red Blood Count 3.67 L Hemoglobin 10.4 L Hematocrit 32.1 L Mean Corpuscular Volume 87.5 Mean Corpuscular Hemoglobin 28.3 L Mean Corpuscular Hemoglobin Concent 32.4 Red Cell Distribution Width 12.3 Platelet Count 359 Mean Platelet Volume 9.0 Neutrophils % 71.9 Lymphocytes % 13.9 L Monocytes % 10.4 Eosinophils % 2.4 Basophils % 0.5 Nucleated Red Blood Cells % 0.0 Neutrophils # 7.8 H Lymphocytes # 1.5 Monocytes # 1.1 H Eosinophils # 0.3 Basophils # 0.1 Nucleated Red Blood Cells # 0.0 Sodium Level 144 Potassium Level 4.1 Chloride Level 113 H Carbon Dioxide Level 24 Anion Gap 11 Blood Urea Nitrogen 24 H Creatinine 3.10 H Glucose Level 97 Calcium Level 8.5 Medications Current Medications Acetaminophen (Tylenol Tab) 650 mg Q6H PRN PO PAIN AND OR ELEVATED TEMP Last administered on 04/15/17 00:53; Admin Dose 650 MG; Start 04/14/17 at 02:00 Acetaminophen/ Hydrocodone Bitart ([place] (5/325)) 1 tab Q4H PRN PO PAIN; Start 04/14/17 at 02:00 Morphine Sulfate (morphine) 4 mg Q4H PRN IV PAIN Last administered on 20:45; Admin Dose 4 MG; Start 04/14/17 at 02:00 Aspirin (Halfprin) 81 mg DAILY PO Last administered on 04/18/17 08:52; Admin Dose 81 MG; Start 04/15/17 at 09:00 Finasteride (Proscar) 5 mg DAILY PO Last administered on 04/18/17 08:52; Admin Dose 5 MG; Start 04/15/17 at 09:00 Tamsulosin HCl (Flomax) 0.4 mg BID PO Last administered on 04/18/17 08:52; Admin Dose 0.4 MG; Start 04/14/17 at 21:00 Atorvastatin Calcium (Lipitor) 20 mg HS PO Last administered on 04/17/17 20:58 ; Admin Dose 20 MG; Start 04/14/17 at 21:00 Oxycodone/ Acetaminophen (Percocet (5/ 325)) 1 tab Q4H PRN PO MILD PAIN (1-3); Start 04/14/17 at 20:30 Oxycodone/ Acetaminophen (Percocet (5/ 325)) 2 tab Q4H PRN PO MODERATE PAIN (4- 6); Start 04/14/17 at 20:30 Ondansetron HCl 4 mg 4 mg Q6H PRN IV NAUSEA Last administered on 04/17/17 18: 28; Admin Dose 4 MG; Start 04/14/17 at 20:30 Sodium Chloride 1,000 ml @ 75 mls/hr [id number] IV Last administered on 01:19; Admin Dose 75 MLS/HR; Start 04/17/17 at 11:30; Stop 04/18/17 at 14: 09 Ertapenem/Sodium Chloride (Invanz/NS) 100 ml @ 200 mls/hr Q24H IVPB ; Start at 14:00 Assessment/Plan Chief Complaint/Hosp Course Assessment 1. Solitary pulmonary nodule right lower lobe appears chronic in nature 2. Chronic renal insufficiency 3. Rectal abscess status post I&D Recommendations Repeat CT scan in 6 months time. No further workup needed at this point. Discharge okay from pulmonary standpoint. We will sign off. Problems: MICHELLE HANNA MD, [facility] Apr 18, 2017 10:39
--- NOTE | 2017-04-18 11:03 | CONS ---
Date/Time of Note Date/Time of Note DATE: 04/18/17 TIME: 11:01 Assessment/Plan Assessment/Plan Chief Complaint/Hosp Course 56 M with PMHx of HL, Hypothyroidism, who was admitted with rectal abscess s/p I &D. pt admitted with normal creatinine, he was treated ith IV zosyn initially. his Creatinine bumped to 1.76- then again bumped to 3.95 today. Renal has been consutled for acute kidney injury. pt was seen in AM. He has been switched to ertapenm for iV abx. Problems: Additional Assessment/Plan 1. Acute kidney injury due to ATN + nephrotoxicity 2. SIRS 3. Rectal abscess s/p I & D 4. Hypertension 5. BPH 6. HL Plan : Current pt is on IV ertapenem, continue it Cr improved to 3.1- continue IVF 1/2 NS at 75 cc.hr Urine stuides unremarkable Renal US has unremarkable, echogenicity c/w medical renal disease d/c martinez catheter will follow up Consultation Date/Type/Reason Admit Date/Time Apr 13, 2017 at 23:28 Initial Consult Date 04/14/17 Type of Consultation: NEPHROLOGY Referring Provider: GUERO HEDRICK MD 24 HR Interval Summary Free Text/Dictation 3.14 Exam/Review of Systems Vital Signs Vitals Vital Signs Date Time Temp Pulse Resp B/P Pulse Ox O2 Delivery O2 Flow Rate FiO2 04/18/17 08:02 70 04/18/17 07:30 98.3 20 146/91 94 04/16/17 08:00 Nasal Cannula 2.0 Intake and Output 04/17/17 04/17/17 04/18/17 15:00 23:00 07:00 Intake Total 500 ml 1250 ml 1630 ml Output Total 2100 ml 1600 ml Balance 500 ml -850 ml 30 ml Exam Constitutional: alert Respiratory: clear to auscultation, normal air movement Cardiovascular: nl pulses, regular rate and rhythm Gastrointestinal: non-tender, soft Musculoskeletal: nl extremities to inspection, nl gait and stance Extremities: normal pulses Neurological: INDUSTRIAL ROOFER II-XII intact, nl mental status, nl speech, nl strength Results Result Diagram: 04/18/17 0556 04/18/17 0556 Results 24 hrs Laboratory Tests Test 04/18/17 05:56 White Blood Count 10.8 Red Blood Count 3.67 L Hemoglobin 10.4 L Hematocrit 32.1 L Mean Corpuscular Volume 87.5 Mean Corpuscular Hemoglobin 28.3 L Mean Corpuscular Hemoglobin Concent 32.4 Red Cell Distribution Width 12.3 Platelet Count 359 Mean Platelet Volume 9.0 Neutrophils % 71.9 Lymphocytes % 13.9 L Monocytes % 10.4 Eosinophils % 2.4 Basophils % 0.5 Nucleated Red Blood Cells % 0.0 Neutrophils # 7.8 H Lymphocytes # 1.5 Monocytes # 1.1 H Eosinophils # 0.3 Basophils # 0.1 Nucleated Red Blood Cells # 0.0 Sodium Level 144 Potassium Level 4.1 Chloride Level 113 H Carbon Dioxide Level 24 Anion Gap 11 Blood Urea Nitrogen 24 H Creatinine 3.10 H Glucose Level 97 Calcium Level 8.5 Medications Medications Current Medications Acetaminophen (Tylenol Tab) 650 mg Q6H PRN PO PAIN AND OR ELEVATED TEMP Last administered on 04/15/17 00:53; Admin Dose 650 MG; Start 04/14/17 at 02:00 Acetaminophen/ Hydrocodone Bitart ([place] (5/325)) 1 tab Q4H PRN PO PAIN; Start 04/14/17 at 02:00 Morphine Sulfate (morphine) 4 mg Q4H PRN IV PAIN Last administered on 20:45; Admin Dose 4 MG; Start 04/14/17 at 02:00 Aspirin (Halfprin) 81 mg DAILY PO Last administered on 04/18/17 08:52; Admin Dose 81 MG; Start 04/15/17 at 09:00 Finasteride (Proscar) 5 mg DAILY PO Last administered on 04/18/17 08:52; Admin Dose 5 MG; Start 04/15/17 at 09:00 Tamsulosin HCl (Flomax) 0.4 mg BID PO Last administered on 04/18/17 08:52; Admin Dose 0.4 MG; Start 04/14/17 at 21:00 Atorvastatin Calcium (Lipitor) 20 mg HS PO Last administered on 04/17/17 20:58 ; Admin Dose 20 MG; Start 04/14/17 at 21:00 Oxycodone/ Acetaminophen (Percocet (5/ 325)) 1 tab Q4H PRN PO MILD PAIN (1-3); Start 04/14/17 at 20:30 Oxycodone/ Acetaminophen (Percocet (5/ 325)) 2 tab Q4H PRN PO MODERATE PAIN (4- 6); Start 04/14/17 at 20:30 Ondansetron HCl 4 mg 4 mg Q6H PRN IV NAUSEA Last administered on 04/17/17 18: 28; Admin Dose 4 MG; Start 04/14/17 at 20:30 Sodium Chloride 1,000 ml @ 75 mls/hr [id number] IV Last administered on 01:19; Admin Dose 75 MLS/HR; Start 04/17/17 at 11:30; Stop 04/18/17 at 14: 09 Ertapenem/Sodium Chloride (Invanz/NS) 100 ml @ 200 mls/hr Q24H IVPB ; Start at 14:00 SHARON ELLISON MD Apr 18, 2017 11:03
[2017-04-18] MEDS: ERTAPENEM SODIUM 0.5 GM in SOD CHLORIDE 0.9% 100 ML IVPB SCH (14:15)
--- NOTE | 2017-04-18 14:20 | CONS ---
Date/Time of Note Date/Time of Note DATE: 04/18/17 TIME: 14:18 Assessment/Plan Assessment/Plan Chief Complaint/Hosp Course Awake, looks comfortable, no fevers. Temperature 98.9 pulse 72 respirations 20 blood pressure 156/84 saturation 95 on room air WBC 10.8 platelets 359 neutrophils 71.9 BUN 24 creatinine 3.10 indwelling's Valladares Microbiology intraoperative culture growing alpha hemolytic strep species Antimicrobials: Invanz Physical examination: Well-developed well-nourished middle-aged man who is in no distress. Head atraumatic normocephalic sclerae nonicteric neck is supple chest rise symmetrical breath sounds clear. Heart S1-S2 abdomen soft bowel sounds present extremities without cyanosis Assessment: 1. Status post perianal abscess drainage 2. Acute kidney injury 3. NSTEMI, status post arrhythmia 4. BPH 5. Lung nodule==> chronic per pulmonary Plan: Patient remains stable. Renal function slowly improving, continue abx, follow nephrology recommendations, anticipate discharge home on Augmentin for 5 more days Problems: Consultation Date/Type/Reason Admit Date/Time Apr 13, 2017 at 23:28 Initial Consult Date 04/15/17 Type of Consultation: id Referring Provider: GUERO HEDRICK MD Exam/Review of Systems Vital Signs Vitals Vital Signs Date Time Temp Pulse Resp B/P Pulse Ox O2 Delivery O2 Flow Rate FiO2 04/18/17 12:05 75 04/18/17 11:23 98.9 20 156/84 95 04/16/17 08:00 Nasal Cannula 2.0 Intake and Output 04/17/17 04/17/17 04/18/17 15:00 23:00 07:00 Intake Total 500 ml 1250 ml 1630 ml Output Total 2100 ml 1600 ml Balance 500 ml -850 ml 30 ml Results Result Diagram: 04/18/17 0556 04/18/17 0556 Results 24 hrs Laboratory Tests Test 04/18/17 05:56 White Blood Count 10.8 Red Blood Count 3.67 L Hemoglobin 10.4 L Hematocrit 32.1 L Mean Corpuscular Volume 87.5 Mean Corpuscular Hemoglobin 28.3 L Mean Corpuscular Hemoglobin Concent 32.4 Red Cell Distribution Width 12.3 Platelet Count 359 Mean Platelet Volume 9.0 Neutrophils % 71.9 Lymphocytes % 13.9 L Monocytes % 10.4 Eosinophils % 2.4 Basophils % 0.5 Nucleated Red Blood Cells % 0.0 Neutrophils # 7.8 H Lymphocytes # 1.5 Monocytes # 1.1 H Eosinophils # 0.3 Basophils # 0.1 Nucleated Red Blood Cells # 0.0 Sodium Level 144 Potassium Level 4.1 Chloride Level 113 H Carbon Dioxide Level 24 Anion Gap 11 Blood Urea Nitrogen 24 H Creatinine 3.10 H Glucose Level 97 Calcium Level 8.5 Medications Medications Current Medications Acetaminophen (Tylenol Tab) 650 mg Q6H PRN PO PAIN AND OR ELEVATED TEMP Last administered on 04/15/17 00:53; Admin Dose 650 MG; Start 04/14/17 at 02:00 Acetaminophen/ Hydrocodone Bitart ([place] (5/325)) 1 tab Q4H PRN PO PAIN; Start 04/14/17 at 02:00 Morphine Sulfate (morphine) 4 mg Q4H PRN IV PAIN Last administered on 20:45; Admin Dose 4 MG; Start 04/14/17 at 02:00 Aspirin (Halfprin) 81 mg DAILY PO Last administered on 04/18/17 08:52; Admin Dose 81 MG; Start 04/15/17 at 09:00 Finasteride (Proscar) 5 mg DAILY PO Last administered on 04/18/17 08:52; Admin Dose 5 MG; Start 04/15/17 at 09:00 Tamsulosin HCl (Flomax) 0.4 mg BID PO Last administered on 04/18/17 08:52; Admin Dose 0.4 MG; Start 04/14/17 at 21:00 Atorvastatin Calcium (Lipitor) 20 mg HS PO Last administered on 04/17/17 20:58 ; Admin Dose 20 MG; Start 04/14/17 at 21:00 Oxycodone/ Acetaminophen (Percocet (5/ 325)) 1 tab Q4H PRN PO MILD PAIN (1-3); Start 04/14/17 at 20:30 Oxycodone/ Acetaminophen (Percocet (5/ 325)) 2 tab Q4H PRN PO MODERATE PAIN (4- 6); Start 04/14/17 at 20:30 Ondansetron HCl 4 mg 4 mg Q6H PRN IV NAUSEA Last administered on 04/17/17 18: 28; Admin Dose 4 MG; Start 04/14/17 at 20:30 Ertapenem/Sodium Chloride (Invanz/NS) 100 ml @ 200 mls/hr Q24H IVPB ; Start at 14:00 JANIA NOLAN NP Apr 18, 2017 14:20
--- NOTE | 2017-04-18 17:58 | CONS ---
Date/Time of Note Date/Time of Note DATE: 04/18/17 TIME: 17:58 Assessment/Plan Assessment/Plan Chief Complaint/Hosp Course Chief Complaint/Hosp Course LEUKOCYTOSIS REACTIVE MONITOR CLOSELY Lung nodule- chronic per pulmonary 1.1 cm pleural based soft nodule is identified in the medial aspect of the right lower lobe. RESCAN IN 3 MO Thyroid cancer, status post thyroidectomy 2000. THYROGLOBULIN- P Status post perianal abscess drainage Acute kidney injury NSTEMI, status post arrhythmia BPH Problems: Consultation Date/Type/Reason Admit Date/Time Apr 13, 2017 at 23:28 Initial Consult Date 04/15/17 Type of Consultation: hemeon Referring Provider: GUERO HEDRICK MD 24 HR Interval Summary Free Text/Dictation ALL NOTED + sOB Exam/Review of Systems Vital Signs Vitals Vital Signs Date Time Temp Pulse Resp B/P Pulse Ox O2 Delivery O2 Flow Rate FiO2 04/18/17 16:22 69 04/18/17 15:40 99.0 20 154/92 94 04/16/17 08:00 Nasal Cannula 2.0 Intake and Output 04/17/17 04/17/17 04/18/17 15:00 23:00 07:00 Intake Total 500 ml 1250 ml 1630 ml Output Total 2100 ml 1600 ml Balance 500 ml -850 ml 30 ml Exam GENERAL: Patient is a well-developed, well-nourished male, who is alert, responsive, in no acute distress. SKIN: Without generalized rash. HEENT: Within normal limits. NECK: Supple. Lymph nodes nonpalpable. CHEST: Decreased breath sounds at the bases. HEART: Without murmur or gallop. ABDOMEN: Soft, nontender. Nondistended, but protuberant. There is no organo-splenomegaly or masses. EXTREMITIES: Without cyanosis, clubbing, or edema. RECTAL: Deferred. GENITAL: Deferred. NEUROLOGICAL: No focal neurological abnormalities. Results Result Diagram: 04/18/17 0556 04/18/17 0556 Results 24 hrs Laboratory Tests Test 04/18/17 05:56 White Blood Count 10.8 Red Blood Count 3.67 L Hemoglobin 10.4 L Hematocrit 32.1 L Mean Corpuscular Volume 87.5 Mean Corpuscular Hemoglobin 28.3 L Mean Corpuscular Hemoglobin Concent 32.4 Red Cell Distribution Width 12.3 Platelet Count 359 Mean Platelet Volume 9.0 Neutrophils % 71.9 Lymphocytes % 13.9 L Monocytes % 10.4 Eosinophils % 2.4 Basophils % 0.5 Nucleated Red Blood Cells % 0.0 Neutrophils # 7.8 H Lymphocytes # 1.5 Monocytes # 1.1 H Eosinophils # 0.3 Basophils # 0.1 Nucleated Red Blood Cells # 0.0 Sodium Level 144 Potassium Level 4.1 Chloride Level 113 H Carbon Dioxide Level 24 Anion Gap 11 Blood Urea Nitrogen 24 H Creatinine 3.10 H Glucose Level 97 Calcium Level 8.5 Medications Medications Current Medications Acetaminophen (Tylenol Tab) 650 mg Q6H PRN PO PAIN AND OR ELEVATED TEMP Last administered on 04/15/17 00:53; Admin Dose 650 MG; Start 04/14/17 at 02:00 Acetaminophen/ Hydrocodone Bitart ([place] (5/325)) 1 tab Q4H PRN PO PAIN; Start 04/14/17 at 02:00 Morphine Sulfate (morphine) 4 mg Q4H PRN IV PAIN Last administered on 20:45; Admin Dose 4 MG; Start 04/14/17 at 02:00 Aspirin (Halfprin) 81 mg DAILY PO Last administered on 04/18/17 08:52; Admin Dose 81 MG; Start 04/15/17 at 09:00 Finasteride (Proscar) 5 mg DAILY PO Last administered on 04/18/17 08:52; Admin Dose 5 MG; Start 04/15/17 at 09:00 Tamsulosin HCl (Flomax) 0.4 mg BID PO Last administered on 04/18/17 08:52; Admin Dose 0.4 MG; Start 04/14/17 at 21:00 Atorvastatin Calcium (Lipitor) 20 mg HS PO Last administered on 04/17/17 20:58 ; Admin Dose 20 MG; Start 04/14/17 at 21:00 Oxycodone/ Acetaminophen (Percocet (5/ 325)) 1 tab Q4H PRN PO MILD PAIN (1-3); Start 04/14/17 at 20:30 Oxycodone/ Acetaminophen (Percocet (5/ 325)) 2 tab Q4H PRN PO MODERATE PAIN (4- 6); Start 04/14/17 at 20:30 Ondansetron HCl 4 mg 4 mg Q6H PRN IV NAUSEA Last administered on 04/17/17 18: 28; Admin Dose 4 MG; Start 04/14/17 at 20:30 Ertapenem 0.5 gm/ Sodium Chloride 100 ml @ 200 mls/hr Q24H IVPB Last administered on 04/18/17 14:15; Admin Dose 200 MLS/HR; Start 04/18/17 at 14:00 Sodium Chloride (1/2 NS) 1,000 ml @ 75 mls/hr [id number] IV Last administered on 04/18/17 15:22; Admin Dose 75 MLS/HR; Start 04/18/17 at 15:30 CIPRIANO BECKER MD Apr 18, 2017 17:58
--- NOTE | 2017-04-18 19:53 | PN ---
Date/Time of Note Date/Time of Note DATE: 04/18/17 TIME: 19:48 Assessment/Plan VTE Prophylaxis VTE Prophylaxis Intervention: SCD's Lines/Catheters IV [facility] Type ([facility] Peripheral IV Urinary Cath still in place: Yes Reason Cath still needed: urinary retention Assessment/Plan Chief Complaint/Hosp Course Patient states significant improvement in rectal pain, was able to have bowel movement, denies any chest pain, denies shortness of breath. Valladares discontinued patient is able to void. Creatinine is still elevated at 3, continue to monitor function. If renal function improves patient can be discharged home off antibiotics. Patient condition and plan of care was discussed with patient, all questions answered. Assessment/Plan - ALIX, continue IV fluids, Dr Morris is following in nephrology consultation. - Elevated troponins in the setting of supraventricular tachycardia (SVT). Dr Chavira is following in cardiology consultation. - Rectal abscess. S/p I& D by Dr Dawson, general surgery on 04/14. - Systemic inflammatory response syndrome with fevers and leukocytosis secondary to rectal abscess. Continue intravenous fluids and antibiotics. Dr. Salmeron is following in Infectious Disease consultation. - A 1 cm pleural-based soft tissue nodule in the right lower lung lobe. Dr. Monte is following Pulmonology consultation. - Benign prostatic hypertrophy. - Hypertension. - Dyslipidemia. Further recommendations based on clinical course. Plan of care discussed with Dr. Ponce. Problems: Exam/Review of Systems Vital Signs Vitals Vital Signs Date Time Temp Pulse Resp B/P Pulse Ox O2 Delivery O2 Flow Rate FiO2 04/18/17 19:41 99.5 75 18 168/93 93 04/16/17 08:00 Nasal Cannula 2.0 Intake and Output 04/17/17 04/17/17 04/18/17 15:00 23:00 07:00 Intake Total 500 ml 1250 ml 1630 ml Output Total 2100 ml 1600 ml Balance 500 ml -850 ml 30 ml Exam Constitutional: alert, oriented Neck: supple Respiratory: normal air movement Cardiovascular: nl pulses, regular rate and rhythm Gastrointestinal: non-tender, soft Extremities: normal pulses Results Result Diagram: 04/18/17 0556 04/18/17 0556 Results 24 hrs Laboratory Tests Test 04/18/17 05:56 White Blood Count 10.8 Red Blood Count 3.67 L Hemoglobin 10.4 L Hematocrit 32.1 L Mean Corpuscular Volume 87.5 Mean Corpuscular Hemoglobin 28.3 L Mean Corpuscular Hemoglobin Concent 32.4 Red Cell Distribution Width 12.3 Platelet Count 359 Mean Platelet Volume 9.0 Neutrophils % 71.9 Lymphocytes % 13.9 L Monocytes % 10.4 Eosinophils % 2.4 Basophils % 0.5 Nucleated Red Blood Cells % 0.0 Neutrophils # 7.8 H Lymphocytes # 1.5 Monocytes # 1.1 H Eosinophils # 0.3 Basophils # 0.1 Nucleated Red Blood Cells # 0.0 Sodium Level 144 Potassium Level 4.1 Chloride Level 113 H Carbon Dioxide Level 24 Anion Gap 11 Blood Urea Nitrogen 24 H Creatinine 3.10 H Glucose Level 97 Calcium Level 8.5 Medications Medications Current Medications Acetaminophen (Tylenol Tab) 650 mg Q6H PRN PO PAIN AND OR ELEVATED TEMP Last administered on 04/15/17 00:53; Admin Dose 650 MG; Start 04/14/17 at 02:00 Acetaminophen/ Hydrocodone Bitart ([place] (5/325)) 1 tab Q4H PRN PO PAIN; Start 04/14/17 at 02:00 Morphine Sulfate (morphine) 4 mg Q4H PRN IV PAIN Last administered on 20:45; Admin Dose 4 MG; Start 04/14/17 at 02:00 Aspirin (Halfprin) 81 mg DAILY PO Last administered on 04/18/17 08:52; Admin Dose 81 MG; Start 04/15/17 at 09:00 Finasteride (Proscar) 5 mg DAILY PO Last administered on 04/18/17 08:52; Admin Dose 5 MG; Start 04/15/17 at 09:00 Tamsulosin HCl (Flomax) 0.4 mg BID PO Last administered on 04/18/17 08:52; Admin Dose 0.4 MG; Start 04/14/17 at 21:00 Atorvastatin Calcium (Lipitor) 20 mg HS PO Last administered on 04/17/17 20:58 ; Admin Dose 20 MG; Start 04/14/17 at 21:00 Oxycodone/ Acetaminophen (Percocet (5/ 325)) 1 tab Q4H PRN PO MILD PAIN (1-3); Start 04/14/17 at 20:30 Oxycodone/ Acetaminophen (Percocet (5/ 325)) 2 tab Q4H PRN PO MODERATE PAIN (4- 6); Start 04/14/17 at 20:30 Ondansetron HCl 4 mg 4 mg Q6H PRN IV NAUSEA Last administered on 04/17/17 18: 28; Admin Dose 4 MG; Start 04/14/17 at 20:30 Ertapenem 0.5 gm/ Sodium Chloride 100 ml @ 200 mls/hr Q24H IVPB Last administered on 04/18/17 14:15; Admin Dose 200 MLS/HR; Start 04/18/17 at 14:00 Sodium Chloride (1/2 NS) 1,000 ml @ 75 mls/hr [id number] IV Last administered on 04/18/17 15:22; Admin Dose 75 MLS/HR; Start 04/18/17 at 15:30 HERBER NUGENT Apr 18, 2017 19:53
[2017-04-18] MEDS: ATORVASTATIN 20 MG TAB PO SCH (21:14)
[2017-04-19] VITALS (13 sets, daily range): BP systolic 129–166; BP diastolic 78–91; PULSE 55–87; RESP 17–20
[2017-04-19] MEDS: SOD CHLORIDE 0.45% 1,000 ML IV SCH ×2 (04:28→17:42)
[2017-04-19 06:46] LABS: BASOPHIL # 0.1 10^3/ul (0.0-0.1); BASOPHILS % 0.5 % (0.0-2.0); EOSINOPHILS # 0.3 10^3/ul (0.0-0.5); EOSINOPHILS % 2.7 % (0.0-7.0); HEMATOCRIT 32.3 % (42.0-52.0); HEMOGLOBIN 10.6 g/dl (14.0-18.0); LYMPHOCYTES # 1.6 10^3/ul (0.8-2.9); LYMPHOCYTES % 14.4 % (15.0-51.0); MEAN CORPUSCULAR HGB CONC 32.8 g/dl (32.0-37.0); MEAN CORPUSCULAR VOLUME 85.4 fl (82.0-101.0); MEAN PLATELET VOLUME 9.2 fl (7.4-10.4); MONOCYTE # 1.3 10^3/ul (0.3-0.9); MONOCYTES % 11.7 % (0.0-11.0); NEUTROPHIL # 7.5 10^3/ul (1.6-7.5); NEUTROPHILS % 69.4 % (39.0-77.0); PLATELET COUNT 393 10^3/UL (140-415); RED BLOOD COUNT 3.78 10^6/ul (4.70-6.10); RED CELL DISTRIBUTION WIDTH 12.2 % (11.5-14.5); WHITE BLOOD COUNT 10.8 10^3/ul (4.8-10.8)
[2017-04-19 07:16] LABS: CALCIUM 8.7 mg/dl (8.4-10.2); CREATININE 2.54 mg/dl (0.61-1.24); POTASSIUM 3.8 mmol/L (3.5-5.1)
[2017-04-19 07:24] LABS: TROPONIN-I 0.019 ng/ml (0.00-0.12)
[2017-04-19] MEDS: TAMSULOSIN (SR) 0.4 MG CAP PO SCH ×2 (08:09→20:44)
[2017-04-19] MEDS: LEVOTHYROXINE 175 MCG TAB PO SCH (08:09)
[2017-04-19] MEDS: FINASTERIDE 5 MG TAB PO SCH (08:09)
[2017-04-19] MEDS: ASPIRIN (EC) 81 MG TAB PO SCH (08:12)
--- NOTE | 2017-04-19 11:29 | PN ---
Date/Time of Note Date/Time of Note DATE: 04/19/17 TIME: 11:28 Assessment/Plan VTE Prophylaxis VTE Prophylaxis Intervention: other Lines/Catheters IV [facility]ter Type (from [facility]): Peripheral IV Urinary Cath still in place: Yes Reason Cath still needed: skin wounds contaminated by urine Assessment/Plan Chief Complaint/Hosp Course - ALIX, continue IV fluids, Dr Morris is following in nephrology consultation. - Elevated troponins in the setting of supraventricular tachycardia (SVT). Dr Chavira is following in cardiology consultation. - Rectal abscess. S/p I& D by Dr Dawson, general surgery on 04/14. - Systemic inflammatory response syndrome with fevers and leukocytosis secondary to rectal abscess. Continue intravenous fluids and antibiotics. Dr. Salmeron is following in Infectious Disease consultation. - A 1 cm pleural-based soft tissue nodule in the right lower lung lobe. Dr. Monte is following Pulmonology consultation. - Benign prostatic hypertrophy. - Hypertension. - Dyslipidemia. Problems: Subjective 24 Hr Interval Summary Free Text/Dictation Patient wants to go home Exam/Review of Systems Vital Signs Vitals Vital Signs Date Time Temp Pulse Resp B/P Pulse Ox O2 Delivery O2 Flow Rate FiO2 04/19/17 11:23 98.4 71 20 151/86 93 04/16/17 08:00 Nasal Cannula 2.0 Intake and Output 04/18/17 04/18/17 04/19/17 15:00 23:00 07:00 Intake Total 100 ml 1225 ml 1800 ml Output Total 1200 ml 980 ml 1200 ml Balance -1100 ml 245 ml 600 ml Exam Constitutional: well developed Head: atraumatic, normocephalic Neck: supple Respiratory: clear to auscultation Cardiovascular: regular rate and rhythm Gastrointestinal: non-tender, soft Extremities: normal pulses Results Result Diagram: 04/19/17 0556 04/19/17 0556 Results 24 hrs Laboratory Tests Test 04/19/17 05:56 White Blood Count 10.8 Red Blood Count 3.78 L Hemoglobin 10.6 L Hematocrit 32.3 L Mean Corpuscular Volume 85.4 Mean Corpuscular Hemoglobin 28.0 L Mean Corpuscular Hemoglobin Concent 32.8 Red Cell Distribution Width 12.2 Platelet Count 393 Mean Platelet Volume 9.2 Neutrophils % 69.4 Lymphocytes % 14.4 L Monocytes % 11.7 H Eosinophils % 2.7 Basophils % 0.5 Nucleated Red Blood Cells % 0.0 Neutrophils # 7.5 Lymphocytes # 1.6 Monocytes # 1.3 H Eosinophils # 0.3 Basophils # 0.1 Nucleated Red Blood Cells # 0.0 Sodium Level 143 Potassium Level 3.8 Chloride Level 110 Carbon Dioxide Level 24 Anion Gap 13 Blood Urea Nitrogen 25 H Creatinine 2.54 H Glucose Level 92 Calcium Level 8.7 Troponin I 0.019 Medications Medications Current Medications Acetaminophen (Tylenol Tab) 650 mg Q6H PRN PO PAIN AND OR ELEVATED TEMP Last administered on 04/15/17 00:53; Admin Dose 650 MG; Start 04/14/17 at 02:00 Acetaminophen/ Hydrocodone Bitart ([place] (5/325)) 1 tab Q4H PRN PO PAIN; Start 04/14/17 at 02:00 Morphine Sulfate (morphine) 4 mg Q4H PRN IV PAIN Last administered on 20:45; Admin Dose 4 MG; Start 04/14/17 at 02:00 Aspirin (Halfprin) 81 mg DAILY PO Last administered on 04/19/17 08:12; Admin Dose 81 MG; Start 04/15/17 at 09:00 Finasteride (Proscar) 5 mg DAILY PO Last administered on 04/19/17 08:09; Admin Dose 5 MG; Start 04/15/17 at 09:00 Tamsulosin HCl (Flomax) 0.4 mg BID PO Last administered on 04/19/17 08:09; Admin Dose 0.4 MG; Start 04/14/17 at 21:00 Atorvastatin Calcium (Lipitor) 20 mg HS PO Last administered on 04/18/17 21:14 ; Admin Dose 20 MG; Start 04/14/17 at 21:00 Oxycodone/ Acetaminophen (Percocet (5/ 325)) 1 tab Q4H PRN PO MILD PAIN (1-3); Start 04/14/17 at 20:30 Oxycodone/ Acetaminophen (Percocet (5/ 325)) 2 tab Q4H PRN PO MODERATE PAIN (4- 6); Start 04/14/17 at 20:30 Ondansetron HCl 4 mg 4 mg Q6H PRN IV NAUSEA Last administered on 04/17/17 18: 28; Admin Dose 4 MG; Start 04/14/17 at 20:30 Ertapenem 0.5 gm/ Sodium Chloride 100 ml @ 200 mls/hr Q24H IVPB Last administered on 04/18/17 14:15; Admin Dose 200 MLS/HR; Start 04/18/17 at 14:00 Sodium Chloride (1/2 NS) 1,000 ml @ 75 mls/hr [id number] IV Last administered on 04/19/17 04:28; Admin Dose 75 MLS/HR; Start 04/18/17 at 15:30 JERICHO PATRICIO Apr 19, 2017 11:29
--- NOTE | 2017-04-19 13:00 | CONS ---
Date/Time of Note Date/Time of Note DATE: 04/19/17 TIME: 12:59 Assessment/Plan Assessment/Plan Additional Assessment/Plan 56 M with PMHx of HL, Hypothyroidism, who was admitted with rectal abscess s/p I &D. pt admitted with normal creatinine, he was treated ith IV zosyn initially. his Creatinine bumped to 1.76- then again bumped to 3.95 and downtrended to 2.54 today. Renal has been consulted for acute kidney injury.He has been switched to ertapenem for iV abx. Additional Assessment/Plan 1. Acute kidney injury due to ATN + nephrotoxicity - Cr 2.54 today, cont IVF 2. SIRS 3. Rectal abscess s/p I & D 4. Hypertension 5. BPH 6. HL Plan : Current pt is on IV ertapenem, continue it Cr improved to 2.54- continue IVF 1/2 NS at 75 cc.hr . Ok to discharge home with FU in [address] Larry Morris Urine studies unremarkable Renal US has unremarkable, echogenicity c/w medical renal disease d/c Valladares catheter will follow up - Chanelle Morris Consultation Date/Type/Reason Admit Date/Time Apr 13, 2017 at 23:28 Initial Consult Date 04/14/17 Type of Consultation: [facility] Referring Provider: GUERO HEDRICK MD 24 HR Interval Summary Free Text/Dictation -feels better, denies any complaint, - Cr down to 2.54 today, IVF cont. . - wants to go home. no events reported overnight. dw staff. - chanelle Poon- its ok for patient to go home/ family at bed side- all Qs answered Constitutional: improved Detailed Summary Respiratory: no complaints Cardiovascular: no complaints Gastrointestinal: no complaints Genitourinary: no complaints Musculoskeletal: no complaints Exam/Review of Systems Vital Signs Vitals Vital Signs Date Time Temp Pulse Resp B/P Pulse Ox O2 Delivery O2 Flow Rate FiO2 04/19/17 12:32 60 04/19/17 11:23 98.4 20 151/86 93 04/16/17 08:00 Nasal Cannula 2.0 Intake and Output 04/18/17 04/18/17 04/19/17 15:00 23:00 07:00 Intake Total 100 ml 1225 ml 1800 ml Output Total 1200 ml 980 ml 1200 ml Balance -1100 ml 245 ml 600 ml Exam Constitutional: alert, oriented, well developed Respiratory: clear to auscultation Cardiovascular: nl pulses, regular rate and rhythm Gastrointestinal: non-tender, soft Musculoskeletal: nl extremities to inspection Extremities: normal pulses Neurological: nl mental status, nl speech Results Result Diagram: 04/19/17 0556 04/19/17 0556 Results 24 hrs Laboratory Tests Test 04/19/17 05:56 White Blood Count 10.8 Red Blood Count 3.78 L Hemoglobin 10.6 L Hematocrit 32.3 L Mean Corpuscular Volume 85.4 Mean Corpuscular Hemoglobin 28.0 L Mean Corpuscular Hemoglobin Concent 32.8 Red Cell Distribution Width 12.2 Platelet Count 393 Mean Platelet Volume 9.2 Neutrophils % 69.4 Lymphocytes % 14.4 L Monocytes % 11.7 H Eosinophils % 2.7 Basophils % 0.5 Nucleated Red Blood Cells % 0.0 Neutrophils # 7.5 Lymphocytes # 1.6 Monocytes # 1.3 H Eosinophils # 0.3 Basophils # 0.1 Nucleated Red Blood Cells # 0.0 Sodium Level 143 Potassium Level 3.8 Chloride Level 110 Carbon Dioxide Level 24 Anion Gap 13 Blood Urea Nitrogen 25 H Creatinine 2.54 H Glucose Level 92 Calcium Level 8.7 Troponin I 0.019 Medications Medications Current Medications Acetaminophen (Tylenol Tab) 650 mg Q6H PRN PO PAIN AND OR ELEVATED TEMP Last administered on 04/15/17 00:53; Admin Dose 650 MG; Start 04/14/17 at 02:00 Acetaminophen/ Hydrocodone Bitart ([place] (5/325)) 1 tab Q4H PRN PO PAIN; Start 04/14/17 at 02:00 Morphine Sulfate (morphine) 4 mg Q4H PRN IV PAIN Last administered on 20:45; Admin Dose 4 MG; Start 04/14/17 at 02:00 Aspirin (Halfprin) 81 mg DAILY PO Last administered on 04/19/17 08:12; Admin Dose 81 MG; Start 04/15/17 at 09:00 Finasteride (Proscar) 5 mg DAILY PO Last administered on 04/19/17 08:09; Admin Dose 5 MG; Start 04/15/17 at 09:00 Tamsulosin HCl (Flomax) 0.4 mg BID PO Last administered on 04/19/17 08:09; Admin Dose 0.4 MG; Start 04/14/17 at 21:00 Atorvastatin Calcium (Lipitor) 20 mg HS PO Last administered on 04/18/17 21:14 ; Admin Dose 20 MG; Start 04/14/17 at 21:00 Oxycodone/ Acetaminophen (Percocet (5/ 325)) 1 tab Q4H PRN PO MILD PAIN (1-3); Start 04/14/17 at 20:30 Oxycodone/ Acetaminophen (Percocet (5/ 325)) 2 tab Q4H PRN PO MODERATE PAIN (4- 6); Start 04/14/17 at 20:30 Ondansetron HCl 4 mg 4 mg Q6H PRN IV NAUSEA Last administered on 04/17/17 18: 28; Admin Dose 4 MG; Start 04/14/17 at 20:30 Ertapenem 0.5 gm/ Sodium Chloride 100 ml @ 200 mls/hr Q24H IVPB Last administered on 04/18/17 14:15; Admin Dose 200 MLS/HR; Start 04/18/17 at 14:00 Sodium Chloride (1/2 NS) 1,000 ml @ 75 mls/hr [id number] IV Last administered on 04/19/17 04:28; Admin Dose 75 MLS/HR; Start 04/18/17 at 15:30 JONES HINTON Apr 19, 2017 13:00
[2017-04-19] MEDS: ERTAPENEM SODIUM 0.5 GM in SOD CHLORIDE 0.9% 100 ML IVPB SCH (14:12)
--- NOTE | 2017-04-19 17:09 | CONS ---
Date/Time of Note Date/Time of Note DATE: 04/19/17 TIME: 17:08 Assessment/Plan Assessment/Plan Chief Complaint/Hosp Course Chief Complaint/Hosp Course LEUKOCYTOSIS REACTIVE MONITOR CLOSELY Lung nodule- chronic per pulmonary 1.1 cm pleural based soft nodule is identified in the medial aspect of the right lower lobe. RESCAN IN 3 MO Thyroid cancer, status post thyroidectomy 2000. THYROGLOBULIN- P Status post perianal abscess drainage Acute kidney injury NSTEMI, status post arrhythmia BPH Problems: Consultation Date/Type/Reason Admit Date/Time Apr 13, 2017 at 23:28 Initial Consult Date 04/15/17 Type of Consultation: hemeon Referring Provider: GUERO HEDRICK MD 24 HR Interval Summary Free Text/Dictation ALL NOTED NO NEW EVENTS Exam/Review of Systems Vital Signs Vitals Vital Signs Date Time Temp Pulse Resp B/P Pulse Ox O2 Delivery O2 Flow Rate FiO2 04/19/17 16:31 62 04/19/17 15:50 20 146/84 66 Room Air 04/19/17 15:14 98.5 04/16/17 08:00 2.0 Intake and Output 04/18/17 04/18/17 04/19/17 15:00 23:00 07:00 Intake Total 100 ml 1225 ml 1800 ml Output Total 1200 ml 980 ml 1200 ml Balance -1100 ml 245 ml 600 ml Exam GENERAL: Patient is a well-developed, well-nourished male, who is alert, responsive, in no acute distress. SKIN: Without generalized rash. HEENT: Within normal limits. NECK: Supple. Lymph nodes nonpalpable. CHEST: Decreased breath sounds at the bases. HEART: Without murmur or gallop. ABDOMEN: Soft, nontender. Nondistended, but protuberant. There is no organo-splenomegaly or masses. EXTREMITIES: Without cyanosis, clubbing, or edema. RECTAL: Deferred. GENITAL: Deferred. NEUROLOGICAL: No focal neurological abnormalities. Results Result Diagram: 04/19/17 0556 04/19/17 0556 Results 24 hrs Laboratory Tests Test 04/19/17 05:56 White Blood Count 10.8 Red Blood Count 3.78 L Hemoglobin 10.6 L Hematocrit 32.3 L Mean Corpuscular Volume 85.4 Mean Corpuscular Hemoglobin 28.0 L Mean Corpuscular Hemoglobin Concent 32.8 Red Cell Distribution Width 12.2 Platelet Count 393 Mean Platelet Volume 9.2 Neutrophils % 69.4 Lymphocytes % 14.4 L Monocytes % 11.7 H Eosinophils % 2.7 Basophils % 0.5 Nucleated Red Blood Cells % 0.0 Neutrophils # 7.5 Lymphocytes # 1.6 Monocytes # 1.3 H Eosinophils # 0.3 Basophils # 0.1 Nucleated Red Blood Cells # 0.0 Sodium Level 143 Potassium Level 3.8 Chloride Level 110 Carbon Dioxide Level 24 Anion Gap 13 Blood Urea Nitrogen 25 H Creatinine 2.54 H Glucose Level 92 Calcium Level 8.7 Troponin I 0.019 Medications Medications Current Medications Acetaminophen (Tylenol Tab) 650 mg Q6H PRN PO PAIN AND OR ELEVATED TEMP Last administered on 04/15/17 00:53; Admin Dose 650 MG; Start 04/14/17 at 02:00 Acetaminophen/ Hydrocodone Bitart ([place] (5/325)) 1 tab Q4H PRN PO PAIN; Start 04/14/17 at 02:00 Morphine Sulfate (morphine) 4 mg Q4H PRN IV PAIN Last administered on 20:45; Admin Dose 4 MG; Start 04/14/17 at 02:00 Aspirin (Halfprin) 81 mg DAILY PO Last administered on 04/19/17 08:12; Admin Dose 81 MG; Start 04/15/17 at 09:00 Finasteride (Proscar) 5 mg DAILY PO Last administered on 04/19/17 08:09; Admin Dose 5 MG; Start 04/15/17 at 09:00 Tamsulosin HCl (Flomax) 0.4 mg BID PO Last administered on 04/19/17 08:09; Admin Dose 0.4 MG; Start 04/14/17 at 21:00 Atorvastatin Calcium (Lipitor) 20 mg HS PO Last administered on 04/18/17 21:14 ; Admin Dose 20 MG; Start 04/14/17 at 21:00 Oxycodone/ Acetaminophen (Percocet (5/ 325)) 1 tab Q4H PRN PO MILD PAIN (1-3); Start 04/14/17 at 20:30 Oxycodone/ Acetaminophen (Percocet (5/ 325)) 2 tab Q4H PRN PO MODERATE PAIN (4- 6); Start 04/14/17 at 20:30 Ondansetron HCl 4 mg 4 mg Q6H PRN IV NAUSEA Last administered on 04/17/17 18: 28; Admin Dose 4 MG; Start 04/14/17 at 20:30 Ertapenem 0.5 gm/ Sodium Chloride 100 ml @ 200 mls/hr Q24H IVPB Last administered on 04/19/17 14:12; Admin Dose 200 MLS/HR; Start 04/18/17 at 14:00 Sodium Chloride (1/2 NS) 1,000 ml @ 75 mls/hr [id number] IV Last administered on 04/19/17 04:28; Admin Dose 75 MLS/HR; Start 04/18/17 at 15:30 CIPRIANO BECKER MD Apr 19, 2017 17:09
--- NOTE | 2017-04-19 18:39 | CONS ---
Date/Time of Note Date/Time of Note DATE: 04/19/17 TIME: 18:38 Consult Date/Type/Reason Admit Date/Time Apr 13, 2017 at 23:28 Initial Consult Date 04/14/17 Type of Consultation: Pulm Ordering Provider: GUERO HEDRICK MD Subjective No events. Objective Vital Signs Date Time Temp Pulse Resp B/P Pulse Ox O2 Delivery O2 Flow Rate FiO2 04/19/17 16:31 62 04/19/17 15:50 20 146/84 66 Room Air 04/19/17 15:14 98.5 04/16/17 08:00 2.0 Intake and Output 04/18/17 04/18/17 04/19/17 15:00 23:00 07:00 Intake Total 100 ml 1225 ml 1800 ml Output Total 1200 ml 980 ml 1200 ml Balance -1100 ml 245 ml 600 ml Exam HEENT: Neck supple; no JVD; no LAD CVS: RRR, S1 and S2 CHEST: Clear ABD: Soft, NT, + BS EXT: No c/c/e Results/Medications Result Diagram: 04/19/17 0556 04/19/17 0556 Results 24 hrs Laboratory Tests Test 04/19/17 05:56 White Blood Count 10.8 Red Blood Count 3.78 L Hemoglobin 10.6 L Hematocrit 32.3 L Mean Corpuscular Volume 85.4 Mean Corpuscular Hemoglobin 28.0 L Mean Corpuscular Hemoglobin Concent 32.8 Red Cell Distribution Width 12.2 Platelet Count 393 Mean Platelet Volume 9.2 Neutrophils % 69.4 Lymphocytes % 14.4 L Monocytes % 11.7 H Eosinophils % 2.7 Basophils % 0.5 Nucleated Red Blood Cells % 0.0 Neutrophils # 7.5 Lymphocytes # 1.6 Monocytes # 1.3 H Eosinophils # 0.3 Basophils # 0.1 Nucleated Red Blood Cells # 0.0 Sodium Level 143 Potassium Level 3.8 Chloride Level 110 Carbon Dioxide Level 24 Anion Gap 13 Blood Urea Nitrogen 25 H Creatinine 2.54 H Glucose Level 92 Calcium Level 8.7 Troponin I 0.019 Medications Current Medications Acetaminophen (Tylenol Tab) 650 mg Q6H PRN PO PAIN AND OR ELEVATED TEMP Last administered on 04/15/17t 00:53; Admin Dose 650 MG; Start 04/14/17 at 02:00 Acetaminophen/ Hydrocodone Bitart ([place] (5/325)) 1 tab Q4H PRN PO PAIN; Start 04/14/17 at 02:00 Morphine Sulfate (morphine) 4 mg Q4H PRN IV PAIN Last administered on 20:45; Admin Dose 4 MG; Start 04/14/17 at 02:00 Aspirin (Halfprin) 81 mg DAILY PO Last administered on 04/19/17 08:12; Admin Dose 81 MG; Start 04/15/17 at 09:00 Finasteride (Proscar) 5 mg DAILY PO Last administered on 04/19/17 08:09; Admin Dose 5 MG; Start 04/15/17 at 09:00 Tamsulosin HCl (Flomax) 0.4 mg BID PO Last administered on 04/19/17 08:09; Admin Dose 0.4 MG; Start 04/14/17 at 21:00 Atorvastatin Calcium (Lipitor) 20 mg HS PO Last administered on 04/18/17 21:14 ; Admin Dose 20 MG; Start 04/14/17 at 21:00 Oxycodone/ Acetaminophen (Percocet (5/ 325)) 1 tab Q4H PRN PO MILD PAIN (1-3); Start 04/14/17 at 20:30 Oxycodone/ Acetaminophen (Percocet (5/ 325)) 2 tab Q4H PRN PO MODERATE PAIN (4- 6); Start 04/14/17 at 20:30 Ondansetron HCl 4 mg 4 mg Q6H PRN IV NAUSEA Last administered on 04/17/17 18: 28; Admin Dose 4 MG; Start 04/14/17 at 20:30 Ertapenem 0.5 gm/ Sodium Chloride 100 ml @ 200 mls/hr Q24H IVPB Last administered on 04/19/17 14:12; Admin Dose 200 MLS/HR; Start 04/18/17 at 14:00 Sodium Chloride (1/2 NS) 1,000 ml @ 75 mls/hr [id number] IV Last administered on 04/19/17 04:28; Admin Dose 75 MLS/HR; Start 04/18/17 at 15:30 Assessment/Plan Additional Assessment/Plan IMP: 1. Solitary pulmonary nodule right lower lobe appears chronic in nature 2. Chronic renal insufficiency 3. Rectal abscess status post I&D RECS: Repeat CT scan in 6 months time. Cocci serologies and TB Quant Gold HANNA RICHARDSON MD Apr 19, 2017 18:39
[2017-04-19] MEDS: ATORVASTATIN 20 MG TAB PO SCH (20:44)
[2017-04-20] VITALS (7 sets, daily range): BP systolic 145–158; BP diastolic 89–97; PULSE 64–81; RESP 18–20
[2017-04-20 07:08] LABS: BASOPHIL # 0.1 10^3/ul (0.0-0.1); BASOPHILS % 0.6 % (0.0-2.0); EOSINOPHILS # 0.3 10^3/ul (0.0-0.5); EOSINOPHILS % 2.4 % (0.0-7.0); HEMATOCRIT 32.6 % (42.0-52.0); HEMOGLOBIN 11.1 g/dl (14.0-18.0); LYMPHOCYTES # 1.8 10^3/ul (0.8-2.9); LYMPHOCYTES % 14.4 % (15.0-51.0); MEAN CORPUSCULAR HEMOGLOBIN 28.7 pg (29.0-33.0); MEAN CORPUSCULAR VOLUME 84.2 fl (82.0-101.0); MEAN PLATELET VOLUME 9.2 fl (7.4-10.4); MONOCYTE # 1.3 10^3/ul (0.3-0.9); NEUTROPHIL # 9.1 10^3/ul (1.6-7.5); NEUTROPHILS % 71.7 % (39.0-77.0); PLATELET COUNT 416 10^3/UL (140-415); RED BLOOD COUNT 3.87 10^6/ul (4.70-6.10); RED CELL DISTRIBUTION WIDTH 12.3 % (11.5-14.5); WHITE BLOOD COUNT 12.7 10^3/ul (4.8-10.8)
[2017-04-20] MEDS: SOD CHLORIDE 0.45% 1,000 ML IV SCH (07:30)
[2017-04-20 07:39] LABS: CREATININE 2.31 mg/dl (0.61-1.24); POTASSIUM 4.2 mmol/L (3.5-5.1)
[2017-04-20] MEDS: LEVOTHYROXINE 175 MCG TAB PO SCH (07:57)
[2017-04-20] MEDS: TAMSULOSIN (SR) 0.4 MG CAP PO SCH (08:04)
[2017-04-20] MEDS: ASPIRIN (EC) 81 MG TAB PO SCH (08:04)
[2017-04-20] MEDS: FINASTERIDE 5 MG TAB PO SCH (08:04)
--- NOTE | 2017-04-20 10:30 | DS ---
Date/Time of Note Date/Time of Note DATE: 04/20/17 TIME: 10:27 Discharge Summary Admission/Discharge Info Admit Date/Time Apr 13, 2017 at 23:28 Discharge Date/Time 04/20/17 Discharge Diagnosis perianal abscess Patient Condition: Fair Consults surgery ID nephrology cardiology Procedures abscess I&D Hx of Present Illness Patient with coronary artery disease, renal insufficiency comes in with perirectal abscess and associated pain Hospital Course Patient with coronary artery disease, renal insufficiency comes in with perirectal abscess. Patient underwent I&D and was treated with intravenous antibiotics. Patient was noted to have elevated BUN and Cr and nephrology was consulted to follow up. Patient had SVT and cardiology is following the patient. Patient is doing improved and so once felt to be stable, he was sent home on oral antibiotics. - ALIX, continue IV fluids, Dr Morris is following in nephrology consultation. - Elevated troponins in the setting of supraventricular tachycardia (SVT). Dr Chavira is following in cardiology consultation. - Rectal abscess. S/p I& D by Dr Dawson, general surgery on 04/14. - Systemic inflammatory response syndrome with fevers and leukocytosis secondary to rectal abscess. Continue intravenous fluids and antibiotics. Dr. Salmeron is following in Infectious Disease consultation. - A 1 cm pleural-based soft tissue nodule in the right lower lung lobe. Dr. Monte is following Pulmonology consultation. - Benign prostatic hypertrophy. - Hypertension. - Dyslipidemia. Home Meds Active Scripts Tamsulosin Hcl* (Flomax*) 0.4 Mg Cap.er.24h, 0.4 MG PO BID, #10 CAP Prov:PALMIRA SAMUEL MD 01/10/15 Hydrocodone Bit-Acetaminophen* ([place]*) 5-325 Mg Tab, 1 TAB PO Q6 Y for PAIN, # 7 TAB Prov:PALMIRA SAMUEL MD 01/10/15 Reported Medications Alendronate Sodium* (Fosamax*) 70 Mg Tablet, 70 MG PO Q7D, TAB 01/10/15 Calcium Carbonate* (Calcium Antacid*) 500 Mg Tab.chew, 500 MG PO DAILY, TAB.CHEW 01/10/15 Finasteride* (Finasteride*) 5 Mg Tablet, 5 MG PO DAILY, TAB 01/10/15 Terazosin Hcl* (Terazosin Hcl*) 10 Mg Capsule, 10 MG PO HS, CAP 01/10/15 Levothyroxine Sodium* (Levoxyl*) 175 Mcg Tablet, 175 MCG PO AC BREAKFAST, TAB 01/10/15 Aspirin (Low Dose Aspirin) 81 Mg Tablet.dr, 81 MG PO DAILY 01/10/15 Simvastatin (Simvastatin) 40 Mg Tablet, 40 MG PO HS 02/09/13 Primary Care Provider Neftali Delaney MD Pending Labs Laboratory Tests Test 04/20/17 06:16 White Blood Count 12.710^3/ul (4.8-10.8) Red Blood Count 3.8710^6/ul (4.70-6.10) Hemoglobin 11.1g/dl (14.0-18.0) Hematocrit 32.6% (42.0-52.0) Mean Corpuscular Volume 84.2fl (82.0-101.0) Mean Corpuscular Hemoglobin 28.7pg (29.0-33.0) Mean Corpuscular Hemoglobin Concent 34.0g/dl (32.0-37.0) Red Cell Distribution Width 12.3% (11.5-14.5) Platelet Count 16319^3/UL (140-415) Mean Platelet Volume 9.2fl (7.4-10.4) Neutrophils % 71.7% (39.0-77.0) Lymphocytes % 14.4% (15.0-51.0) Monocytes % 10.0% (0.0-11.0) Eosinophils % 2.4% (0.0-7.0) Basophils % 0.6% (0.0-2.0) Nucleated Red Blood Cells % 0.0/100WBC (0.0-0.0) Neutrophils # 9.110^3/ul (1.6-7.5) Lymphocytes # 1.810^3/ul (0.8-2.9) Monocytes # 1.310^3/ul (0.3-0.9) Eosinophils # 0.310^3/ul (0.0-0.5) Basophils # 0.110^3/ul (0.0-0.1) Nucleated Red Blood Cells # 0.010^3/ul (0.0-0.0) Sodium Level 144mmol/L (135-144) Potassium Level 4.2mmol/L (3.5-5.1) Chloride Level 110mmol/L (97-110) Carbon Dioxide Level 25mmol/L (21-31) Anion Gap 13 (8-16) Blood Urea Nitrogen 26mg/dl (7-20) Creatinine 2.31mg/dl (0.61-1.24) Glucose Level 104mg/dl (70-220) Calcium Level 9.0mg/dl (8.4-10.2) JERICHO PATRICIO Apr 20, 2017 10:30
--- NOTE | 2017-04-20 18:07 | CONS ---
Date/Time of Note Date/Time of Note DATE: 04/20/17 TIME: 12:05 VK LE Assessment/Plan Assessment/Plan Chief Complaint/Hosp Course Chief Complaint/Hosp Course LEUKOCYTOSIS REACTIVE MONITOR CLOSELY Lung nodule- chronic per pulmonary 1.1 cm pleural based soft nodule is identified in the medial aspect of the right lower lobe. RESCAN IN 3 MO Thyroid cancer, status post thyroidectomy 2000. THYROGLOBULIN- P Status post perianal abscess drainage Acute kidney injury NSTEMI, status post arrhythmia BPH OK TO DDC F-UP WITH PCP AND ONCOLOGIST ON O PANEL Problems: Consultation Date/Type/Reason Admit Date/Time Apr 13, 2017 at 23:28 Initial Consult Date 04/15/17 Type of Consultation: HEMEON Referring Provider: GUERO HEDRICK MD 24 HR Interval Summary Free Text/Dictation ALL NOTED D/W STAFF GOING HOME TODAY Exam/Review of Systems Vital Signs Vitals Vital Signs Date Time Temp Pulse Resp B/P Pulse Ox O2 Delivery O2 Flow Rate FiO2 04/20/17 12:00 67 04/20/17 11:10 98.2 20 156/89 94 04/19/17 15:50 Room Air 04/16/17 08:00 2.0 Intake and Output 04/19/17 04/19/17 04/20/17 15:00 23:00 07:00 Intake Total 500 ml Output Total 800 ml Balance -300 ml Exam GENERAL: Patient is a well-developed, well-nourished male, who is alert, responsive, in no acute distress. SKIN: Without generalized rash. HEENT: Within normal limits. NECK: Supple. Lymph nodes nonpalpable. CHEST: Decreased breath sounds at the bases. HEART: Without murmur or gallop. ABDOMEN: Soft, nontender. Nondistended, but protuberant. There is no organo-splenomegaly or masses. EXTREMITIES: Without cyanosis, clubbing, or edema. RECTAL: Deferred. GENITAL: Deferred. NEUROLOGICAL: No focal neurological abnormalities. Results Result Diagram: 04/20/17 0616 04/20/17 0616 Results 24 hrs Laboratory Tests Test 04/20/17 06:16 White Blood Count 12.7 H Red Blood Count 3.87 L Hemoglobin 11.1 L Hematocrit 32.6 L Mean Corpuscular Volume 84.2 Mean Corpuscular Hemoglobin 28.7 L Mean Corpuscular Hemoglobin Concent 34.0 Red Cell Distribution Width 12.3 Platelet Count 416 H Mean Platelet Volume 9.2 Neutrophils % 71.7 Lymphocytes % 14.4 L Monocytes % 10.0 Eosinophils % 2.4 Basophils % 0.6 Nucleated Red Blood Cells % 0.0 Neutrophils # 9.1 H Lymphocytes # 1.8 Monocytes # 1.3 H Eosinophils # 0.3 Basophils # 0.1 Nucleated Red Blood Cells # 0.0 Sodium Level 144 Potassium Level 4.2 Chloride Level 110 Carbon Dioxide Level 25 Anion Gap 13 Blood Urea Nitrogen 26 H Creatinine 2.31 H Glucose Level 104 Calcium Level 9.0 CIPRIANO BECKER MD Apr 20, 2017 18:07
== END 2017-04-20 13:21 | disposition home or self-care (01) | DRG 871 ==
LOC: FTE 20:12 → PP2 23:28 → ICU 04-15 02:39 → TEL 04-15 18:48
PROVIDERS: ADMIT Internal Medicine; ATTEND Internal Medicine
PROC: 0D9Q0ZX Drainage of Anus, Open Approach, Diagnostic (ICD-10-PCS; principal; 2017-04-14 19:00)
DX: A41.9 Sepsis, unspecified organism (principal); I21.4 Non-ST elevation (NSTEMI) myocardial infarction; N17.0 Acute kidney failure with tubular necrosis; I47.1 Supraventricular tachycardia; K61.1 Rectal abscess; I48.0 Paroxysmal atrial fibrillation; I10 Essential (primary) hypertension; E78.5 Hyperlipidemia, unspecified; N40.0 Benign prostatic hyperplasia without lower urinary tract symptoms; J44.9 Chronic obstructive pulmonary disease, unspecified; M81.0 Age-related osteoporosis without current pathological fracture; E89.0 Postprocedural hypothyroidism; R91.1 Solitary pulmonary nodule; Z85.850 Personal history of malignant neoplasm of thyroid; Z87.891 Personal history of nicotine dependence
CPT/HCPCS: 36415; 71250; 74177; 76775; 80048; 80053; 81003; 82550; 82553; 82570; 83605; 84300; 84443; 84484; 84560; 85025; 86800; 87040; 87070; 87075; 87081; 89190; 93005; 93306; 96374; 96375; J1335; J2250; J2270; J2405; J2543; J3010; J3370; J7030; J7040; J7042; J7050; Q9967

== ENCOUNTER 2018-02-14 18:11 | Emergency (ER) | END 2018-02-14 20:57 | disposition home or self-care (01) ==

== ENCOUNTER 2018-09-06 11:47 | Emergency (ER) | payer BC ==
[~2018-09-06] VITALS: Ht 172.7 cm; Wt 92.1 kg
[~2018-09-06 11:47] MED LIST changes: -ALEN70TA30 PO; +ALEN70TA5 PO; -ASPI-664 PO; +ASPI81TA52 PO; +CEPH-443 PO; +IBUP-1542 PO; +TERA10CA3 PO; -TERA10CA42 PO
[2018-09-06 11:48] VITALS: Ht 172.7 cm; Wt 92.1 kg
[2018-09-06] MEDS ORDERED: SODIUM CHLORIDE 0.9% 1L BAG IV* STA (12:11)
[2018-09-06] MEDS ORDERED: KETOROLAC 15 MG INJ IV STA (12:11)
--- NOTE | 2018-09-06 12:14 | ERD ---
ER Documentation Chief Complaint Chief Complaint FEVER , CHILLS , COUGH, BODY ACHE X 2 DAYS HPI 58-year-old male, previously healthy, presents the emergency department, complaining of 2 days with acute onset of fever, cough, headache and general malaise. T-max 102. The patient is also complaining of mild constipation. He denies rectal pain, no abdominal pain, no rectal bleeding. ROS All systems reviewed and are negative except as per history of present illness. Medications Home Meds Active Scripts Albuterol Sulfate* (Proair HFA*) 8.5 Gm Hfa.aer.ad, 2 PUFF INH Q4H PRN for WHEEZING AND SOB, #1 INHALER Prov:SEUN CARBONE MD 09/06/18 Docusate Sodium* (Colace*) 100 Mg Capsule, 100 MG PO TID PRN for CONSTIPATION, #30 CAP Prov:SEUN CARBONE MD 09/06/18 Ibuprofen* (Motrin*) 600 Mg Tab, 600 MG PO Q8, #15 TAB Prov:SEUN CARBONE MD 09/06/18 Oseltamivir Phosphate* (Tamiflu*) 75 Mg Capsule, 75 MG PO BID for 5 Days, CAP Prov:SEUN CARBONE MD 09/06/18 Ibuprofen* (Motrin*) 600 Mg Tab, 600 MG PO Q6, #30 TAB Prov:ERIKA VARGAS 02/14/18 Cephalexin* (Keflex*) 500 Mg Capsule, 500 MG PO BID for 7 Days, CAP Prov:ERIKA VARGAS 02/14/18 Tamsulosin Hcl* (Flomax*) 0.4 Mg Cap.er.24h, 0.4 MG PO BID, #10 CAP Prov:PALMIRA SAMUEL MD 01/10/15 Hydrocodone Bit-Acetaminophen* (Mousie*) 5-325 Mg Tab, 1 TAB PO Q6 PRN for PAIN, #7 TAB Prov:PALMIRA SAMUEL MD 01/10/15 Reported Medications Alendronate Sodium* (Fosamax*) 70 Mg Tablet, 70 MG PO Q7D, TAB 01/10/15 Calcium Carbonate* (Calcium Antacid*) 500 Mg Tab.chew, 500 MG PO DAILY, TAB.CHEW 01/10/15 Finasteride* (Finasteride*) 5 Mg Tablet, 5 MG PO DAILY, TAB 01/10/15 Terazosin Hcl* (Terazosin Hcl*) 10 Mg Capsule, 10 MG PO HS, CAP 01/10/15 Levothyroxine Sodium* (Levoxyl*) 175 Mcg Tablet, 175 MCG PO AC BREAKFAST, TAB 01/10/15 Aspirin (Low Dose Aspirin) 81 Mg Tablet.dr, 81 MG PO DAILY 01/10/15 Simvastatin (Simvastatin) 40 Mg Tablet, 40 MG PO HS 02/09/13 Allergies Allergies: Coded Allergies: No Known Allergy (Unverified , 01/10/15) PMhx/Soc History of Surgery: Yes (thyroid surgery 2000,cyst removal on tail bone 1980) Anesthesia Reaction: No Hx Neurological Disorder: No Hx Respiratory Disorders: No Hx Cardiac Disorders: No Hx Psychiatric Problems: No Hx Miscellaneous Medical Probl: Yes (high cholesterol, thyroid problem) Hx Alcohol Use: Yes (ocasssional) Hx Substance Use: No Hx Tobacco Use: No Smoking Status: Never smoker FmHx Family History: diabetes; No coronary disease Physical Exam Vitals Vital Signs Date Temp Pulse Resp B/P (MAP) Pulse Ox O2 O2 Flow FiO2 Time Delivery Rate 09/06/18 99.2 94 18 121/75 94 Room Air 14:04 (90) 09/06/18 101.5 126 18 132/81 96 11:48 (98) Physical Exam Patient is in moderate distress due to cough and fever, vital signs showed fever. EYES: PERRLA, EOMI, injected sclerae EARS: Canals clear, erythematous tympanic membranes THROAT: Erythematous oropharynx. NECK: Supple, No lymphadenopathy. Full ROM without pain or tenderness. HEART: RRR, no rubs, murmurs, clicks or gallops. LUNGS: Bilateral rhonchi to auscultation. ABDOMEN: Soft, non-tender without masses or hepatosplenomegaly. EXTREMITIES: No edema bilaterally. BACK: Full ROM, no deformity, normal back exam NEURO: Cranial nerves grossly intact, no motor or sensory deficit Result Diagram: 09/06/18 1225 09/06/18 1225 Results 24 hrs Laboratory Tests Test 09/06/18 12:25 09/06/18 12:39 White Blood Count 7.7 10^3/ul Red Blood Count 4.84 10^6/ul Hemoglobin 13.8 g/dl Hematocrit 42.7 % Mean Corpuscular Volume 88.2 fl Mean Corpuscular Hemoglobin 28.5 pg Mean Corpuscular Hemoglobin Concent 32.3 g/dl Red Cell Distribution Width 12.6 % Platelet Count 187 10^3/UL Mean Platelet Volume 10.0 fl Immature Granulocytes % 0.300 % Neutrophils % 66.9 % Lymphocytes % 19.9 % Monocytes % 12.4 % Eosinophils % 0.1 % Basophils % 0.4 % Nucleated Red Blood Cells % 0.0 /100WBC Immature Granulocytes # 0.020 10^3/ul Neutrophils # 5.1 10^3/ul Lymphocytes # 1.5 10^3/ul Monocytes # 1.0 10^3/ul Eosinophils # 0.0 10^3/ul Basophils # 0.0 10^3/ul Nucleated Red Blood Cells # 0.0 10^3/ul Prothrombin Time 12.7 Sec Prothrombin Time Ratio 1.0 INR International Normalized Ratio 0.94 Activated Partial Thromboplast Time 27.8 Sec Sodium Level 140 mmol/L Potassium Level 3.9 mmol/L Chloride Level 103 mmol/L Carbon Dioxide Level 27 mmol/L Anion Gap 10 Blood Urea Nitrogen 19 mg/dl Creatinine 1.18 mg/dl Est Glomerular Filtrat Rate mL/min > 60 mL/min Glucose Level 109 mg/dl Calcium Level 9.4 mg/dl Total Bilirubin 0.9 mg/dl Direct Bilirubin 0.00 mg/dl Indirect Bilirubin 0.9 mg/dl Aspartate Amino Transf (AST/SGOT) 28 IU/L Alanine Aminotransferase (ALT/SGPT) 26 IU/L Alkaline Phosphatase 66 IU/L Troponin I < 0.012 ng/ml Total Protein 8.5 g/dl Albumin 4.5 g/dl Globulin 4.00 g/dl Albumin/Globulin Ratio 1.12 Lipase 631 U/L POC Venous Lactate 1.8 mmol/L Current Medications Medications Dose Sig/Joey Start Time Status Last (Trade) Ordered Route PRN Stop Time Admin Dose Reason Admin Sodium 2,050 ml BOLUS OVER 2 09/06/18 DC 09/06/18 Chloride HOURS STAT 12:11 12:38 (NS) IV* 09/06/18 12:15 650 mg ONCE ONCE 09/06/18 DC 09/06/18 Acetaminophen PO 12:30 12:38 (Tylenol 09/06/18 12:31 Tab) Ketorolac 15 mg ONCE STAT 09/06/18 DC 09/06/18 Tromethamine IV 12:11 12:38 (Toradol) 09/06/18 12:15 Oseltamivir 75 mg ONCE ONCE 09/06/18 DC 09/06/18 Phosphate PO 13:30 13:34 (Tamiflu) 09/06/18 13:31 Name: BARRETT SPENCE Age/Sex: 58/M Attend Dr: SEUN CARBONE Acct: [id number] MR# : [id number] : 1960 Location: [facility] Admit: 09/06/18 ----- Specimen: [id number] Status: Complete [place]: 09/06/18 Rcvd: 09/06/18-1241 Source: GERA Sp Descrip: Procedure Result Microbiology INFLUENZA A & B BY EIA Final INFLU A&B BY EIA INFLUENZA A POSITIVE (Ref Range Neg) INFLUENZA B NEGATIVE (Ref Range Neg) Phoned to DR. ARAGON, FTE, AT 1313, 09/06/18, HN. EKG read by me: Rate/Rhythm: Regular rate and rhythm at a rate of 115 Intervals: Normal No acute ST changes. No T wave inversion Impression: No evidence of acute ischemia or arrhythmia Procedures/MDM At the time of discharge, vital signs stable, no respiratory distress. Differential diagnosis include but not limited to: Respiratory infection bacterial/viral/fungal. Asthma/COPD, pneumonitis, allergies, GERD. Less likely foreign body aspiration, cardiac related, aspiration pneumonia, malignancy. Physical examination and clinical presentation consistent most likely with infl uenza. During the ED course the patient remained stable, fever resolved with medications given in the ER, no new complaints. Clinical impression discussed with patient who agrees with management. The patient is stable to be treated outpatient and will be discharged home with a Rx for antiviral medication and ibuprofen, antibiotics not indicated at this time. Some side effects of prescribed medications (headache, rash, nausea, vomiting, diarrhea, drowsiness, habituation, bleeding, hypertension, interactions with other medications) were reviewed. The patient was instructed to follow up with the primary care provider in the next 48h. If symptoms persist, worsen or new symptoms develop, then patient should return to the ED immediately. Disclaimer: Inadvertent spelling and grammatical errors are likely due to EHR/dictation software use and do not reflect on the overall quality of patient care. Also, please note that the electronic time recorded on this note does not necessarily reflect the actual time of the patient encounter. Departure Diagnosis: Primary Impression: Influenza A Condition: Stable Additional Instructions: Thank you very much for allowing us to participate in your care. Your health and safety is our top priority at [facility]. Call your primary care doctor TOMORROW for an appointment during the next 2-4 days and bring all the information and medications prescribed. Have prescriptions filled and follow precisely the directions on the label. If the symptoms get worse and your provider is unavailable, return to the Emergency Department immediately. SEUN CARBONE MD Sep 06, 2018 12:14
[2018-09-06] MEDS ORDERED: ACETAMINOPHEN 325 MG TAB PO ONE (12:30)
[2018-09-06] MEDS ORDERED: OSELTAMIVIR 75 MG CAP PO ONE (13:30)
[2018-09-06] MEDS ORDERED: OSEL75CA23 PO (13:47)
[2018-09-06] MEDS ORDERED: DOCU-144 PO (13:47)
[2018-09-06] MEDS ORDERED: IBUP-1542 PO (13:47)
[2018-09-06] MEDS ORDERED: ALBU8.5H8 INH (13:48)
[2018-09-06 14:04] VITALS: BP 121/75; PULSE 94; RESP 18
== END 2018-09-06 14:05 | disposition home or self-care (01) ==
LOC: FTE 11:47
DX: J10.1 Influenza due to other identified influenza virus with other respiratory manifestations (principal); R05 Cough; Z79.82 Long term (current) use of aspirin
CPT/HCPCS: 36415; 71045; 80053; 83605; 83690; 84484; 85025; 85610; 85730; 87400; 93005; 96374; J1885; J7030; Z7502; Z7610

== ENCOUNTER 2018-11-30 05:55 | Day surgery (SDC) | payer BC ==
[~2018-11-30] VITALS: Ht 172.7 cm; Wt 91.7 kg
[2018-11-30] VITALS (13 sets, daily range): BP systolic 121–137; BP diastolic 67–86; PULSE 75–86; RESP 10–18; Ht 172.7 cm; Wt 91.7 kg
[~2018-11-30 05:55] MED LIST changes: +ALBU8.5H8 INH; +DOCU-144 PO; +OSEL75CA23 PO
[2018-11-30] MEDS ORDERED: ASPI81TA52 PO (06:53)
[2018-11-30] MEDS ORDERED: LEVO150T64 PO (06:54)
[2018-11-30] MEDS ORDERED: FINA5TAB4 PO (06:54)
[2018-11-30] MEDS ORDERED: TAMS-14 PO (06:54)
[2018-11-30] MEDS ORDERED: ATOR40TA68 PO (06:55)
[2018-11-30] MEDS ORDERED: SOD CHLORIDE 0.9% 1,000 ML IV SCH (07:00)
[2018-11-30] MEDS ORDERED: CEFAZOLIN 2 GM/50 ML (PMX) 50 ML IVPB ONE (07:00)
[2018-11-30] MEDS ORDERED: BACITRACIN/POLYMYXIN 28.35 GM OINT TOP ONE (07:09)
[2018-11-30] MEDS ORDERED: BUPIVACAINE 0.25%/EPI (SDV) 30 ML INJ ONE (07:09)
--- NOTE | 2018-11-30 07:30 | PREAC ---
Date/Time of Note Date/Time of Note DATE: 11/30/18 TIME: 07:29 Anesthesia Eval and Record Evaluation Time Pre-Procedure Interview DATE: 11/30/18 TIME: 07:29 Age 58 Sex male NPO: 8 hrs Preoperative diagnosis emorrhoid Planned procedure hemorrhoidectomy. EUA Past Medical History Past Medical History: Includes Cardio: Dyslipidemia Endo: Hypothyroid Surgery & Anesthesia Issues No known issue Meds Anticoagulation: No Beta Elier within 24 hr: No Reason Beta Elier not given: Pt. not on B-Elier Reported Medications Atorvastatin* (Atorvastatin*) 40 Mg Tablet, 40 MG PO QHS, #30 TAB 11/30/18 Tamsulosin Hcl* (Flomax*) 0.4 Mg Cap.er.24h, 0.4 MG PO DAILY, CAP 11/30/18 Finasteride* (Finasteride*) 5 Mg Tablet, 5 MG PO DAILY, TAB 11/30/18 Levothyroxine Sodium* (Levoxyl*) 150 Mcg Tablet, 150 MCG PO BEFORE BREAKFAST, #30 TAB 11/30/18 Aspirin (Low Dose Aspirin) 81 Mg Tablet.dr, 81 MG PO DAILY, #30 TAB 11/30/18 Discontinued Reported Medications Alendronate Sodium* (Fosamax*) 70 Mg Tablet, 70 MG PO Q7D, TAB 01/10/15 Calcium Carbonate* (Calcium Antacid*) 500 Mg Tab.chew, 500 MG PO DAILY, TAB.CHEW 01/10/15 Finasteride* (Finasteride*) 5 Mg Tablet, 5 MG PO DAILY, TAB 01/10/15 Terazosin Hcl* (Terazosin Hcl*) 10 Mg Capsule, 10 MG PO HS, CAP 01/10/15 Levothyroxine Sodium* (Levoxyl*) 175 Mcg Tablet, 175 MCG PO AC BREAKFAST, TAB 01/10/15 Aspirin (Low Dose Aspirin) 81 Mg Tablet.dr, 81 MG PO DAILY 01/10/15 Simvastatin (Simvastatin) 40 Mg Tablet, 40 MG PO HS 02/09/13 Discontinued Scripts Albuterol Sulfate* (Proair HFA*) 8.5 Gm Hfa.aer.ad, 2 PUFF INH Q4H PRN for WHEEZING AND SOB, #1 INHALER Prov:SEUN CARBONE MD 09/06/18 Docusate Sodium* (Colace*) 100 Mg Capsule, 100 MG PO TID PRN for CONSTIPATION, #30 CAP Prov:SEUN CARBONE MD 09/06/18 Ibuprofen* (Motrin*) 600 Mg Tab, 600 MG PO Q8, #15 TAB Prov:SEUN CARBONE MD 09/06/18 Oseltamivir Phosphate* (Tamiflu*) 75 Mg Capsule, 75 MG PO BID for 5 Days, CAP Prov:SEUN CARBONE MD 09/06/18 Ibuprofen* (Motrin*) 600 Mg Tab, 600 MG PO Q6, #30 TAB Prov:ERIKA VARGAS 02/14/18 Cephalexin* (Keflex*) 500 Mg Capsule, 500 MG PO BID for 7 Days, CAP Prov:ALICIAERIKA HERMAN C 02/14/18 Tamsulosin Hcl* (Flomax*) 0.4 Mg Cap.er.24h, 0.4 MG PO BID, #10 CAP Prov:PALMIRA SAMUEL MD 01/10/15 Hydrocodone Bit-Acetaminophen* ([place]*) 5-325 Mg Tab, 1 TAB PO Q6 PRN for PAIN, #7 TAB Prov:PALMIRA SAMUEL MD 01/10/15 Current Medications Sodium Chloride 1,000 ml @ 75 mls/hr [id number] IV ; Start 11/30/18 at 07:00; Stop 11/30/18 at 19:00 Cefazolin Sodium/ Dextrose 50 ml @ 100 mls/hr PRE-OP ONCE IVPB ; Start 11/30/18 at 07:00; Stop 11/30/18 at 07:29 Meds reviewed: Yes Allergies Coded Allergies: No Known Allergy (Unverified , 11/30/18) Allergies Reviewed: Yes Labs/Studies Labs Reviewed: Reviewed by anesthesiologist test: N/A Studies: ECG (sr), CXR (poss bronchitis) Pre-procedure Exam Airway: Adequate mouth opening Mallampati: Mallampati I Teeth: Abnormal (denture) Lung: Normal Heart: Normal ASA Physical Status ASA physical status: 2 Emergency: None Planned Anesthetic General/MAC: ETT Planned Pain Management Parenteral pain med Pre-operative Attestations Prior to commencing anesthesia and surgery, the patient was re-evaluated, there was verification of: *The patient's identity *The results of appropriate recent lab work and preoperative vital signs *The above evaluation not changing prior to induction *Anesthetic plan, risk benefits, alternative and complications discussed with patient/family; questions answered; patient/family understands, accepts and wishes to proceed. CHI PRATHER MD November 30, 2018 07:29
[2018-11-30] MEDS ORDERED: ONDANSETRON 4 MG INJ ONE (07:35)
[2018-11-30] MEDS ORDERED: ROCURONIUM 50 MG INJ ONE (07:35)
[2018-11-30] MEDS ORDERED: MIDAZOLAM 1 MG/ML 2 ML INJ ONE (07:35)
[2018-11-30] MEDS ORDERED: PROPOFOL 20 ML ONE (07:35)
[2018-11-30] MEDS ORDERED: METOCLOPRAMIDE 10 MG INJ ONE (07:35)
[2018-11-30] MEDS ORDERED: CEFAZOLIN 1 GM INJ ONE (07:35)
--- NOTE | 2018-11-30 07:39 | HPN ---
Date/Time of Note Date/Time of Note DATE: 11/30/18 TIME: 07:38 Interval H&P Admission Note Pt. seen H&P reviewed: No system changes PALMIRA PRADO MD November 30, 2018 07:38
[2018-11-30] MEDS ORDERED: FENTAnyl 50 MCG/ML VIAL ONE (07:50)
[2018-11-30] MEDS ORDERED: OXYCODONE/ACETAMINOPHEN (5/325) TAB PO PRN ×4 (08:00→09:00)
[2018-11-30] MEDS ORDERED: ONDANSETRON 4 MG INJ IV PRN ×2 (08:00→09:00)
[2018-11-30] MEDS ORDERED: hydrALAzine 20 MG INJ IV PRN (08:00)
[2018-11-30] MEDS ORDERED: LABETALOL HCL 20MG INJ IV PRN (08:00)
[2018-11-30] MEDS ORDERED: MEPERIDINE 25 MG INJ IV PRN (08:00)
[2018-11-30] MEDS ORDERED: HYDROmorphONE 1 MG/5 ML IV SYRINGE IV PRN ×3 (08:00)
[2018-11-30] MEDS ORDERED: FENTAnyl 50 MCG/ML VIAL IV PRN ×3 (08:00)
[2018-11-30] MEDS ORDERED: DIPHENHYDRAMINE 50 MG INJ IV PRN (08:00)
[2018-11-30] MEDS ORDERED: NEOSTIGMINE 3 MG/3 ML SYRINGE ONE (08:39)
[2018-11-30] MEDS ORDERED: GLYCOPYRROLATE 0.4 MG INJ ONE (08:39)
--- NOTE | 2018-11-30 08:50 | OPR ---
Date/Time of Note Date/Time of Note DATE: 11/30/18 TIME: 08:44 Operative Report Procedure Date: November 30, 2018 Preoperative Diagnosis External/internal hemorrhoids with bleeding Postoperative Diagnosis External/internal hemorrhoids with bleeding Operation/Procedure Performed 1. Internal/external hemorrhoidectomy 2. Rigid sigmoidoscopy Surgeon see signature line Medical Technologist Generalist None Anesthesia Type: general Anesthesiologist: CHI PRATHER MD Estimated Blood Loss: minimal Transfusion none Specimen Internal/external hemorrhoids Grafts/Implants none Complications none Pt Condition Post Procedure: stable Disposition: PACU Indications The patient is a 58-year-old [place] male who presented to the office with a long-standing several year history of hemorrhoids. Recently he had been experiencing increased bleeding and pain. Patient had tried and failed medical therapy without any relief. He was scheduled for exam under anesthesia, total internal/external hemorrhoidectomy and rigid sigmoidoscopy. All risks and benefits of the procedure including, but not limited to: Wound infection, excessive bleeding, prolonged wound healing, incontinence to stool/feces which may be temporary versus permanent, anal stricture, hemorrhoid recurrence, etc. were all explained to the patient and his daughter in full detail. The patient fully understood and wished to proceed with the procedure. Informed consent was obtained. The patient was instructed to take enemas the day before and morning of surgery. Procedure Description Patient was brought to the operating room and kept on his stretcher. Bilateral sequential compression devices were placed on both lower extremities. A dose of broad-spectrum perioperative intravenous antibiotics was given. After the induction of smooth general anesthesia the patient was positioned in the prone position with all pressure points padded. The anus, perineum and buttocks were prepped and draped in standard surgical fashion. After performance of the surgical timeout 0.25% Marcaine with epinephrine was injected around the anus. Exam under anesthesia did not show any fissures or fistulas. Large circumferential external hemorrhoids were identified. Moderate to large internal hemorrhoids were identified in the left lateral, right lateral, right posterior and right anterior positions. Attention was then turned towards the external hemorrhoids. They were each grasped with a Charles clamp. Incision was made in the perianal skin using the cut mode of the Bovie electrocautery. The external hemorrhoids were then transected at their base using a vessel sealing device and passed off the field as specimen. Attention was then turned to the internal hemorrhoids. They were each grasped using Charles clamps and transected at their base using the vessel sealing device and passed off the field as specimen. Hemostasis was then inspected for and noted to be adequate. Rigid sigmoidoscopy was then performed. Quality of the prep was fair. There were no masses visualized in the areas of the distal rectum and anus which could be seen with the sigmoidoscope. The excision sites of the external hemorrhoids were then reapproximated using running locking 3-0 chromic sutures. The anal canal comfortably fit 2 fingers upon completion of the procedure. Further local anesthesia was then injected around the anus. The area was then irrigated. Xeroform gauze was applied as well as sterile dressings. The patient was then awoken from anesthesia and transferred to recovery room in stable condition. All counts were correct at the end of the case 2. PALMIRA PRADO MD November 30, 2018 08:50
[2018-11-30] MEDS ORDERED: IBUPROFEN 600 MG TAB PO PRN (09:00)
[2018-11-30] MEDS ORDERED: KETOROLAC 30 MG INJ IV PRN (09:00)
[2018-11-30] MEDS ORDERED: morphine 2 MG INJ IV PRN (09:00)
--- NOTE | 2018-12-01 08:42 | PAC ---
Date/Time of Note Date/Time of Note DATE: 12/01/18 TIME: 08:42 Post-Anesthesia Notes Post-Anesthesia Note Last documented vital signs Vital Signs Date Temp Pulse Resp B/P (MAP) Pulse Ox O2 O2 Flow FiO2 Time Delivery Rate 11/30/18 97.5 75 18 132/75 97 09:53 (94) 11/30/18 Room Air 09:48 11/30/18 8.0 09:08 Activity: WNL Respiratory function: WNL Cardiovascular function: WNL Mental status: Baseline Pain reasonably controlled: Yes Hydration appropriate: Yes Nausea/Vomiting absent: No CHI PRATHER MD December 01, 2018 08:42
== END 2018-11-30 10:56 | disposition home or self-care (01) ==
LOC: SDS 05:55
PROVIDERS: ATTEND Surgery
DX: K64.8 Other hemorrhoids (principal); K64.4 Residual hemorrhoidal skin tags; E03.9 Hypothyroidism, unspecified
CPT/HCPCS: 46255; 88304; J0690; J2175; J2250; J2405; J2710; J2765; J3010; Z7512; Z7610